=== PATIENT | male | born 1930 | race African-American/Black ===

== ENCOUNTER 2017-04-17 13:48 | Inpatient (IN) | payer MEDICARE, MEDICAID ==
[2017-04-17 14:07] LABS: Bilirubin Small (Negative); Blood, Urine Negative (Negative); Glucose, Urine (Dipstick) Negative (Negative); Ketone, Urine Negative (Negative); Nitrite Negative (Negative); Protein, Urine (Dipstick) 100 mg/dL (Neg-Trace)
[2017-04-17 14:18] LABS: Bacteria/HPF 3+ HPF (None Seen); Hyaline Casts/LPF 4-6 HYALINE CAST LPF (0-3 Hyaline)
[2017-04-17 14:19] LABS: #Basophils 0.1 thou/uL (0.0-0.2); #Eosinphils 0.1 thou/uL (0.0-0.7); #Lymphocytes 2.2 thou/uL (1.20-3.40); #Monocytes 0.6 thou/uL (0.11-0.59); %Basophils 1.1 % (0.0-1.0); %Eosinophils 2.5 % (0.0-10.0); %Lymphocytes 36.7 % (21.0-51.0); %Monocytes 10.1 % (0.0-10.0); Hematocrit 30.5 % (42.0-52.0); Mean Platelet Volume 7.4 fL (7.4-10.4); Red Blood Cell (RBC) Count 3.42 mill/uL (4.70-6.10); White Blood Cell (WBC) Count 5.9 thou/uL (4.8-10.8)
[2017-04-17 14:20] LABS: Amphetamine Not Detected (NotDetected); Methadone Not Detected (NotDetected); Methamphetamine Not Detected (NotDetected)
--- NOTE | 2017-04-17 14:24 | CT ---
CT BRAIN NONCONTRAST: HISTORY: An 86-year-old male with altered mental status, fluctuating level of consciousness, and bilateral upp er extremity paresis. This stroke-alert protocol report was called to Dr. Simpson at 2:15 p.m. on 04/17/17. FINDINGS: There is no midline shift or any other mass effect. There is no evidence of acute intracranial hemor rhage, large cortical infarct, obstructive hydrocephalus, or extraaxial fluid collection. The calvar ium is intact. There is diffuse parenchymal volume loss. There are low attenuation areas in the whi te matter. These are nonspecific, but in a patient of this age, they are probably chronic ischemic w nilesh matter changes due to microvascular atherosclerosis. IMPRESSION: 1) No acute intracranial findings. 2) Involutional changes and chronic ischemic white matter changes. CODE CR jn [] POS: CYNDI
[2017-04-17 14:38] LABS: ALT (SGPT) Less than 7 U/L (8-55); AST (SGOT) 12 U/L (5-34); Alkaline Phosphatase 58 U/L (40-150); Anion Gap 14 mmol/L (10-20); BUN (Urea Nitrogen) 18 mg/dL (8.4-25.7); Bilirubin, Total 0.3 mg/dL (0.2-1.2); CK (CPK) 112 U/L (30-200); Calc. Creatinine Clearance 0 mL/min (70-130); Calcium 8.7 mg/dL (7.8-10.44); Carbon Dioxide 20 mmol/L (23-31); Chloride 110 mmol/L (98-107); Estimated GFR-MDRD 79; Globulin 2.9 g/dL (2.4-3.5)
[2017-04-17 14:48] LABS: RBC/HPF 0-3 HPF (0-3)
[2017-04-17 14:49] LABS: Renal Epithelial None Seen HPF (0-3); Transitional Epithelial NONE SEEN HPF (0-3)
--- NOTE | 2017-04-17 15:06 | RAD ---
UPRIGHT PORTABLE CHEST 1 VIEW: HISTORY: An 86-year-old male with a history of altered mental status, apneic spells. COMPARISON: 02/09/17. FINDINGS: Postop midline sternotomy. Atherosclerotic ectatic changes of the aorta. A left ICD. Heart size is within normal limits. No confluent pneumonia, overt edema, or pleural effusion. IMPRESSION: No acute intrathoracic disease. Incidental skin folds overlying the right chest. POS: THERESA
[2017-04-17 15:27] LABS: Troponin I 0.077 ng/mL (< 0.028)
[2017-04-17] MEDS ORDERED: cefTRIAXone\\ROCEPHIN 2 GM in Sodium Chloride 0.9% 100 ML IVPB ONE (15:30)
[2017-04-17] MEDS ORDERED: Ondansetron ODT 4 MG TAB PO PRN (16:08)
[2017-04-17] MEDS ORDERED: Ondansetron HCl/PF 4 MG/2 ML Vial IVP PRN (16:08)
[2017-04-17] MEDS ORDERED: Acetaminophen 650 MG Suppository PR PRN (16:08)
[2017-04-17] MEDS ORDERED: Bisacodyl 5 MG TAB PO PRN (16:08)
[2017-04-17] MEDS ORDERED: Acetaminophen 325 MG TAB PO PRN (16:08)
[2017-04-17 18:10] LABS: Vancomycin, Trough 12.1 ug/mL
[2017-04-17 18:32] VITALS: BMI 23.6
[2017-04-17] MEDS: Sodium Chloride 0.9% 1,000 ML IV SCH (19:12)
[2017-04-17] MEDS ORDERED: Vancomycin HCl 1 GM in Sodium Chloride 0.9% 250 ML 250 ML IVPB SCH (21:00)
--- NOTE | 2017-04-17 22:44 | HP ---
PRIMARY CARE PHYSICIAN: Dr. Marilee Llamas. CHIEF COMPLAINT: Altered mental status. HISTORY OF PRESENT ILLNESS: This is an 86-year-old male, brought in by EMS due to altered mental status at home. There are no family members at bedside and no further information available. In the ER patient was initially unresponsive and hypoxic. He was put on oxygen and given IV fluids, at which point he perked up and is now arousable and able to talk. Still with breathing pauses while sleeping. All history taken from chart as patient unable to provide history due to mental status changes. PAST MEDICAL HISTORY: 1. CVA with residual right sided weakness 2. Hypertension 3. Prostate Cancer 4. Paroxysmal Atrial Fibrillation 5. Diastolic congestive heart failure 6. Alzheimer's dementia 7. COPD 8. Sick sinus syndrome 9. Obstructive Uropathy PAST SURGICAL HISTORY: 1. Prostatectomy 2. Pacemaker 3. Suprapubic catheter SOCIAL HISTORY: Patient lives at home with his family. He smoked for 25 years and quit more than 10 years ago. No alcohol or illicit drug use. FAMILY HISTORY: Hypertension, diabetes, and stroke run in several family members. ALLERGIES: Hydrocodone MEDICATIONS: Not available REVIEW OF SYSTEMS: Unable to obtain due to patient's altered mental status. PHYSICAL EXAMINATION: VITAL SIGNS: Reviewed from chart, stable without hypotension or tachycardia after fluids in ER. Afebrile. GENERAL: This is a thin male who is sleepy, but arousable. He does tend to have some prolonged pauses in his breathing while sleeping; however, he is easily arousable, and once he is awake and talking, he breathes normally. HEENT EXAM: Pupils are equal, round, and reactive to light. Oropharynx is clear without lesions, erythema, or exudate. Currently with moist mucous membranes after saline bolus in the emergency room. HEART: Irregularly irregular rhythm, no murmurs. He does have a pacemaker palpable. LUNGS: Clear to auscultation bilaterally, no wheezes, crackles, or rhonchi. ABDOMEN: Soft, nontender to palpation, normoactive bowel sounds. No hepatosplenomegaly or other masses. He does have a suprapubic catheter tube in place. EXTREMITIES: No clubbing, cyanosis, or edema. SKIN: Without rashes or other lesions. NEUROLOGIC: Patient has mild weakness in the right side compared to his left. Deep tendon reflexes are 2+ in all extremities. No facial droop, no dysarthria. PSYCHIATRIC: Patient is alert. He is oriented to person and to the place he knows is [facility]. He is unable to give me the date or the year. He does remember some details about what brought him to the hospital when he has felt ill for the past couple of days. This is markedly better than when he came in. He was minimally arousable originally until given IV fluids in the emergency room. LABORATORY DATA AND IMAGING: CBC shows a white blood cell count of 5.9, hemoglobin of 9.4, hematocrit 30.5, MCV normal, and platelet count normal. Complete metabolic panel was only notable for a chloride of 110, bicarbonate of 20, albumin of 3.1. The remainder is within normal limits. Cardiac marker set indeterminate troponin of 0.077 on the first check. Brain natriuretic peptide is elevated at 148. Lactic acid is normal. Urinalysis with 100 of protein, large leukocyte esterase, only 4 to 6 white blood cells, and 3+ bacteria. This is from his suprapubic cath tube. Urine toxicology screen is negative. Ammonia is pending. Urine and blood cultures are pending as well. X-ray, I did review the chest x-ray done in the emergency room along with the radiologist 's report, it does showed a pacemaker in place, but no acute cardiopulmonary process. CT of the brain showed some old ischemic disease, but no evidence of acute stroke or bleed. ASSESSMENT AND PLAN: 1. Altered mental status, likely related to dehydration and possible infection. Patient's is resolving with IV fluids. He does having some fairly long respiratory pauses, though not becoming hypoxic in the emergency room so he is being admitted to the [facility] for observation overnight. If he does well there, then he can probably go to the floor in the morning. We will continue with IV fluids overnight as well. 2. Urinary tract infection. I have started the patient on Rocephin and vancomycin. Urine and blood cultures are pending. He does not have any leukocytosis. He had minimal criteria for sepsis on arrival with a pulse in the high 90s and altered mental status however, he looked markedly better now. 3. History of atrial fibrillation, hypertension. We will find out patient's home medications and then resume. 4. Gastrointestinal prophylaxis. Put the patient on Pepcid while he is in the hospital. 5. Deep venous thrombosis prophylaxis. Put patient on sequential compression devices and TEDs along with Lovenox while he in the hospital. CODE STATUS: Patient is still not competent to have a code status discussion right now, there is no family present. We will make him a FULL CODE for now until he can find more information from his family. NATHALIE
[2017-04-17] MEDS: Docusate 100 MG CAP PO SCH (22:53)
[2017-04-17] MEDS: Famotidine 20 MG TAB PO SCH (22:53)
[2017-04-18] MEDS: Sodium Chloride 0.9% 1,000 ML IV SCH ×2 (05:15→10:13)
[2017-04-18 05:18] LABS: Anion Gap 9 mmol/L (10-20); BUN (Urea Nitrogen) 16 mg/dL (8.4-25.7); Calc. Creatinine Clearance 64 mL/min (70-130); Calcium 8.3 mg/dL (7.8-10.44); Carbon Dioxide 22 mmol/L (23-31); Chloride 113 mmol/L (98-107); Estimated GFR-MDRD Greater than 90
[2017-04-18 05:40] LABS: #Eosinphils 0.1 thou/uL (0.0-0.7); #Monocytes 0.4 thou/uL (0.11-0.59); #Neutrophils 3.3 thou/uL (1.40-6.50); %Basophils 0.5 % (0.0-1.0); %Eosinophils 2.6 % (0.0-10.0); %Lymphocytes 20.1 % (21.0-51.0); %Monocytes 8.4 % (0.0-10.0); Hematocrit 23.6 % (42.0-52.0); Mean Platelet Volume 7.3 fL (7.4-10.4); Red Blood Cell (RBC) Count 2.61 mill/uL (4.70-6.10); White Blood Cell (WBC) Count 4.9 thou/uL (4.8-10.8)
[2017-04-18 07:55] LABS: Sodium 141 mmol/L (135-148)
[2017-04-18 07:56] LABS: Mode NC 2 LPM; Modified Allen's Test POSITIVE; Vent NO
--- NOTE | 2017-04-18 10:20 | PRG ---
DATE OF SERVICE: 04/18/2017 SUBJECTIVE: The patient is seen and examined at bedside. He just woke up. There was an uneventful night. He is able to answer my simple questions, but his mental status is still off. We do not kn ow whether that is his baseline since he has a history of dementia, or this is something new on the top of his baseline. OBJECTIVE: VITAL SIGNS: Blood pressure is 155/66, pulse is 60, respiratory rate is 10. Pulse oximetry is 100% on O2, he is on 2 liters by nasal cannula. HEENT: Head is atraumatic, normocephalic. Pupils respond to light properly. Sclerae is not icteri c. Conjunctivae pinkish. Oral mucosa is somewhat dry. NECK: Supple, no lymphadenopathy. LUNGS: Clear. HEART: S1, S2 normal, no S3, no S4. ABDOMEN: Soft, nontender. Bowel sounds present, no organomegaly. EXTREMITIES: No clubbing, cyanosis or edema. NEUROLOGIC: He is able to move all 4 extremities. He is awake. He is oriented x1. He knows where he lives, but he does not know the place, time and date. LABORATORY DATA: Showed a white count of 4.9, hemoglobin of 7.3, hematocrit 23.6, platelet count 28 8. Chemistry showed sodium of 140, potassium 3.8, chloride 113, CO2 of 22, anion gap is 9, BUN 16 a nd creatinine 0.79, glucose 77. Ammonia was 40. Two sets of troponins 0.077 and 0.090. Vancomycin trough is 12.1. His blood cultures are still pending. IMPRESSION: 1. Altered mental status. As I mentioned above, this is probably his baseline since he has some fo rm of dementia per previous admission in 06/2016 or this could be just metabolically triggered. 2. Apneic episodes. We are going to have manufacturing sales representative to evaluate his problem. We know that he h as some form of sleep apnea and probably he will have to be on some device at night during sleep. 3. Anemia with hemoglobin dropped by 2 grams. Rectal examination did not reveal any blood in his r ectum. This could be related to his IV fluids administration. We will watch him closely for any fu rther hemoglobin drop. 4. Chronic obstructive pulmonary disease, stable. 5. Hypertension. He will have his home medications after we confirm the medications with his son muriel rodriges is coming in the hospital this morning. 6. Questionable urinary tract infection. We have him on vancomycin and Rocephin. He did not have any significant fever. Most likely this urinalysis is colonization since he has suprapubic catheter in place. 7. History of chronic atrial fibrillation, now he is in normal sinus rhythm. 8. History of dementia. 9. History of cerebrovascular accident. 10. Suprapubic catheter. PLAN: The plan is to do ABGs on him, check pCO2, have manufacturing sales representative to stop by and see him. Contin ue vancomycin and Rocephin and follow up on urine and blood cultures and will move him out from the unit today to medical floor.
[2017-04-18] MEDS: Docusate 100 MG CAP PO SCH ×2 (10:47→19:57)
[2017-04-18] MEDS: Famotidine 20 MG TAB PO SCH ×2 (10:48→19:57)
[2017-04-18] MEDS: Enoxaparin Sodium 40 MG/0.4 ML SYRINGE SC SCH (10:48)
[2017-04-18] MEDS: Sodium Chloride 0.45% 1,000 ML IV SCH (13:22)
--- NOTE | 2017-04-18 13:57 | CON ---
DATE OF SERVICE: 04/18/2017 SERVICE: Pulmonary Medicine. REASON FOR CONSULTATION: ICU patient. HISTORY OF PRESENT ILLNESS: Patient is an 86-year-old -[place] male with past medical history significant for fairly advanced dementia. He is getting to point where he cannot take care of himself. He lives at home with his son. That being said, the son is having a difficult time taking care of the patient as well. When he came into the emergency department because of altered mental status, he had bugs all over him and his hygiene was deplorable outside of that. He had episodes of hypoxemia that were characterized by making no efforts and breathing. This was a central sleep apnea when he was sleeping. That being said, with gentle arousal, he would wake up and be perfectly alert and otherwise appropriate. He currently denies any shortness of breath, fevers, chills, or diarrhea. That being said, nothing that we really ask him, has any merit because of his advanced dementia. PAST MEDICAL HISTORY: 1. History of cerebrovascular accident with residual right-sided weakness. 2. Hypertension. 3. Dyslipidemia. 4. Chronic diastolic heart failure. 5. Atrial fibrillation, paroxysmal. 6. Prostate cancer. 7. Dementia. 8. Chronic obstructive pulmonary disease, possible. 9. Sick sinus syndrome. 10. Obstructive uropathy with chronically indwelling suprapubic catheter. PAST SURGICAL HISTORY: 1. Prostatectomy. 2. Pacemaker placement. 3. Suprapubic catheter. SOCIAL HISTORY: He lives at home with his son. He has a [id number] history of smoking, but quit over 10 years ago. He does not use any current alcohol or any illicit drugs. FAMILY HISTORY: Noncontributory. ALLERGIES: HYDROCODONE. MEDICATIONS: List of his inpatient medications were reviewed. There were no specific updates to be made at this time. REVIEW OF SYSTEMS: The patient is awake and alert. He denies a 10-point review of systems including general, head, eyes, ears, nose, throat, cardiovascular, respiratory, GI, , musculoskeletal, neurologic, and skin except as mentioned in the HPI. PHYSICAL EXAMINATION: VITAL SIGNS: Afebrile, pulse 60, blood pressure 150/78, respirations 16, saturation 100% on room air. GENERAL: Patient is awake, alert, in no apparent distress. HEENT: Normocephalic, atraumatic. Sclerae are white, conjunctivae pink. Oral and nasal mucosa is moist without lesions. LUNGS: Decent air entry. There is a slightly prolonged expiratory phase. I do not appreciate wheezing. Rhonchi are present, but clear with cough. No crackles. HEART: Normal rate, regular. ABDOMEN: Soft, nontender, nondistended. Bowel sounds are positive. MUSCULOSKELETAL: No cyanosis or clubbing. There is no pitting in the bilateral lower extremities. LABORATORY DATA: Sodium 140. Chloride 113. Basic metabolic profile is otherwise unremarkable. Iron level is low. Ferritin is low. Ammonia is normal. BNP 148, troponin 0.09. Liver function studies are unremarkable. Lipase is normal. Urinalysis is significant for large leukocyte esterase, but there is only 4-6 white blood cells present. There is 3+ bacteria. Nitrites are negative. Urine drug screen is unremarkable. Vancomycin trough is 12.1. Blood cultures x2 unremarkable. Urine culture is negative to date. IMAGIN. CT of the brain demonstrates no acute intracranial abnormality. 2. His chest x-ray demonstrates, there is involution changes. There is diffuse parenchymal volume loss. 3. Chest x-ray demonstrates no acute cardiothoracic abnormality. ASSESSMENT: 1. Dementia, advanced. 2. Failure to thrive. 3. Severe protein-calorie malnutrition. 4. Central sleep apnea. 5. Atrial fibrillation, paroxysmal. 6. Severe sepsis, unlikely. PLAN: I will discontinue the vancomycin and the vancomycin troughs. I am okay with the empiric antibiotics directed at issues. That being said, this is likely contamination from a chronically indwelling Salomon catheter. The patient is not responding physiologically as though he has an acute infectious process. Specifically, his white blood cell count is normal. His heart rate is normal , his respiratory rate is normal, and he has not demonstrated any abnormal temperature is either elevated or low. Because of the state of disrepair, the patient was in on presentation, I believe the emergency room has alerted APS to his situation. We may need to look into finding him placement on discharge from the hospital this time around. He certainly does not require inpatient ICU management. The central sleep apnea does not need to be worked up further, as I do not think it would be able to tolerate noninvasive therapy in the outpatient setting. I will continue to follow for the time being, but we will work on transitioning him out of the ICU. NATHALIE
[2017-04-18] MEDS ORDERED: Vancomycin HCl 1 GM in Premix Bag 1 BAG IVPB SCH (16:00)
[2017-04-18] MEDS: cefTRIAXone\\ROCEPHIN 2 GM in Sodium Chloride 0.9% 100 ML IVPB SCH (16:45)
[2017-04-18] MEDS: Vancomycin HCl 1 GM in Premix Bag 1 BAG IVPB SCH (18:07)
[2017-04-18] MEDS: Metoprolol Tartrate 25 MG TAB PO SCH (20:00)
[2017-04-19] MEDS: Vancomycin HCl 1 GM in Premix Bag 1 BAG IVPB SCH ×2 (05:20→19:47)
[2017-04-19] MEDS: Sodium Chloride 0.45% 1,000 ML IV SCH (05:22)
[2017-04-19 05:41] LABS: Hematocrit 25.8 % (42.0-52.0)
[2017-04-19] MEDS: Metoprolol Tartrate 25 MG TAB PO SCH ×2 (10:24→21:07)
[2017-04-19] MEDS: Famotidine 20 MG TAB PO SCH ×2 (10:24→21:07)
[2017-04-19] MEDS: Docusate 100 MG CAP PO SCH ×2 (10:24→21:07)
[2017-04-19] MEDS: Enoxaparin Sodium 40 MG/0.4 ML SYRINGE SC SCH (10:25)
--- NOTE | 2017-04-19 11:41 | PDOC.PN ---
- Subjective Encounter Start Date: 04/19/17 Encounter Start Time: 10:40 -: old records requested/rev Patient seen and examined. No new complaints. No overnight events - Objective Resuscitation Status: Resuscitation Status FULL:Full Resuscitation MAR Reviewed: Yes Vital Signs & Weight: Vital Signs (12 hours) Temp Pulse Resp BP Pulse Ox 04/19/17 08:11 98.1 F 66 16 181/73 H 100 04/19/17 04:00 97.4 F L 84 18 174/83 H 97 04/19/17 00:00 98.2 F 84 18 157/79 H 97 Weight Admit Weight 146 lb 9.718 oz Weight 146 lb 9.718 oz Most Recent Monitor Data Heart Rate from ECG 60 NIBP 150/78 NIBP BP-Mean 115 Respiration from ECG 15 SpO2 100 I&O: 04/18/17 04/19/17 04/20/17 06:59 06:59 06:59 Intake Total 1217 240 Output Total 810 1591 Balance 407 -1351 Result Diagrams: 04/19/17 05:02 04/18/17 04:18 Phys Exam - Physical Examination Constitutional: NAD HEENT: PERRLA, moist MMs, sclera anicteric Neck: no JVD, supple Respiratory: no wheezing, no rales, no rhonchi Cardiovascular: RRR, no significant murmur, no rub Gastrointestinal: soft, non-tender, no distention, positive bowel sounds suprapubic catheter Musculoskeletal: no edema, pulses present Neurological: non-focal, normal sensation Psychiatric: normal affect, A&O x 3 Skin: no rash, normal turgor Dx/Plan (1) Encephalopathy acute Code(s): G93.40 - ENCEPHALOPATHY, UNSPECIFIED Status: Acute (2) COPD (chronic obstructive pulmonary disease) Status: Chronic (3) Chronic diastolic (congestive) heart failure Code(s): I50.32 - CHRONIC DIASTOLIC (CONGESTIVE) HEART FAILURE Status: Chronic (4) Dementia Code(s): F03.90 - UNSPECIFIED DEMENTIA WITHOUT BEHAVIORAL DISTURBANCE Status: Chronic (5) Elevated troponin Code(s): R74.8 - ABNORMAL LEVELS OF OTHER SERUM ENZYMES Status: Chronic (6) H/O prostate cancer Code(s): Z85.46 - PERSONAL HISTORY OF MALIGNANT NEOPLASM OF PROSTATE Status: Chronic (7) H/O: CVA (cerebrovascular accident) Code(s): Z86.73 - PRSNL HX OF TIA (TIA), AND CEREB INFRC W/O RESID DEFICITS Status: Chronic (8) HTN (hypertension) Code(s): I10 - ESSENTIAL (PRIMARY) HYPERTENSION Status: Chronic Qualifiers: Comment: (9) History of suprapubic catheter Code(s): Z98.890 - OTHER SPECIFIED POSTPROCEDURAL STATES Status: Chronic (10) Normochromic anemia Code(s): D64.9 - ANEMIA, UNSPECIFIED Status: Chronic (11) Paroxysmal a-fib Code(s): I48.0 - PAROXYSMAL ATRIAL FIBRILLATION Status: Chronic (12) Protein-calorie malnutrition, moderate Code(s): E44.0 - MODERATE PROTEIN-CALORIE MALNUTRITION Status: Chronic - Plan cont current plan of care, continue antibiotics * continue iv antibiotics * medication reviewed as below * symptomatic treatment * will need placement this time * will monitor. Review of Systems - Review of Systems Other: not reliable due to level of alertness now - Medications/Allergies Allergies/Adverse Reactions: Allergies Allergy/AdvReac Type Severity Reaction Status Date / Time acetaminophen Allergy Verified 04/17/17 17:47 [From Tylenol-Codeine #3] codeine Allergy Verified 04/17/17 17:47 [From Tylenol-Codeine #3] hydrocodone Allergy Verified 06/17/16 20:50 Medications: Current Medications Acetaminophen (Tylenol) 650 mg PO Q4H PRN PRN Reason: Headache/Fever or Pain Acetaminophen (Tylenol) 650 mg AK Q4H PRN PRN Reason: Headache/Fever or Pain Bisacodyl (Dulcolax) 10 mg PO DAILYPRN PRN PRN Reason: Constipation Docusate Sodium (Colace) 100 mg PO BID [facility] Last Admin: 04/19/17 10:24 Dose: 100 mg Enoxaparin Sodium (Lovenox) 40 mg SC 0900 [facility] Last Admin: 04/19/17 10:25 Dose: 40 mg Famotidine (Pepcid) 20 mg PO BID [facility] Last Admin: 04/19/17 10:24 Dose: 20 mg Ferrous Sulfate (Feosol) 325 mg PO BID[facility] Ceftriaxone Sodium 2 gm/ (Sodium Chloride) 100 mls @ 200 mls/hr IVPB 1600 [facility] Last Admin: 04/18/17 16:45 Dose: 100 mls Vancomycin HCl 1 gm/ Device 200 mls @ 200 mls/hr IVPB 0600,1800 [facility] Last Admin: 04/19/17 05:20 Dose: 200 mls Metoprolol Tartrate (Lopressor) 12.5 mg PO BID [facility] Last Admin: 04/19/17 10:24 Dose: 12.5 mg Ondansetron HCl (Zofran Odt) 4 mg PO Q6H PRN PRN Reason: Nausea/Vomiting Ondansetron HCl (Zofran) 4 mg IVP Q6H PRN PRN Reason: Nausea/Vomiting Sodium Chloride (Flush - Normal Saline) 10 ml IVF Q12HR [facility] Last Admin: 04/19/17 10:26 Dose: Not Given Sodium Chloride (Flush - Normal Saline) 10 ml IVF PRN PRN PRN Reason: Saline Flush
--- NOTE | 2017-04-19 11:42 | PRG ---
DATE OF SERVICE: 04/29/2017 SERVICE: Pulmonary Medicine. INTERVAL HISTORY: The patient is doing fine from a respiratory standpoint. He denies any shortness of breath or chest discomfort. He has essentially returned to his usual state of health. Otherwise, he has no specific complaints. He is pleasantly confused today. There were no events overnight. PHYSICAL EXAMINATION: VITAL SIGNS: Afebrile, pulse 66, blood pressure 181/73, respirations 16, saturation 100% on room air. GENERAL: Patient is awake, alert, in no apparent distress. LUNGS: Decent air entry with no prolonged expiratory phase. Dependent crackles are minimal. HEART: Normal rate, regular. ABDOMEN: Soft, nontender, nondistended. Bowel sounds positive. MUSCULOSKELETAL: No cyanosis or clubbing. No pitting in the bilateral lower extremities. NEUROLOGIC: Grossly nonfocal. LABORATORY DATA: Hemoglobin 8.0. Urine cultures growing two separate gram negative chapin species. Blood cultures x2 are unremarkable. ASSESSMENT: 1. Dementia, advanced. 2. Failure to thrive. 3. Severe protein-calorie malnutrition. 4. Central sleep apnea. 5. Atrial fibrillation, paroxysmal. 6. Urinary tract infection, possible. 7. Severe sepsis, unlikely. PLAN: The patient is doing fine from a cardiovascular and respiratory standpoint. At this point, he has no further requirement for inpatient Pulmonary opinion. The central sleep apnea does not need to be investigated in the outpatient setting as the patient does not have the ability to put the mask on and off himself multiple times daily. Please call with additional questions or concerns moving forward. NATHALIE
[2017-04-19] MEDS ORDERED: Mag-Al 1200 mg/1200 mg/30 ML UDCUP PO PRN (15:11)
[2017-04-19] MEDS ORDERED: Artificial Tears 18 DROP/0.9 ML EA EYE PRN (15:11)
[2017-04-19] MEDS ORDERED: Loperamide HCl 2 MG CAP PO PRN (15:11)
[2017-04-19] MEDS ORDERED: Sodium Chloride 0.65% Nasal 44 ML BOT EA NARE PRN (15:11)
[2017-04-19] MEDS ORDERED: Chloraseptic Spray 180 ml Bottle PO PRN (15:11)
[2017-04-19] MEDS ORDERED: Loratadine 10 MG TAB PO PRN (15:11)
[2017-04-19] MEDS ORDERED: Milk Of Magnesia 30 ML UDCUP PO PRN (15:11)
[2017-04-19] MEDS ORDERED: Eucerin (Mineral Oil/Petrolatum,White) 30 gm Jar TOP PRN (15:11)
[2017-04-19] MEDS ORDERED: Diabetic Tussin 200 MG/10 ML UDCUP PO PRN (15:11)
[2017-04-19] MEDS ORDERED: hydrALAZINE 20 MG/ML VIAL SLOW IVP PRN (15:11)
[2017-04-19] MEDS: Ferrous Sulfate 325 MG TAB PO SCH (18:09)
[2017-04-19] MEDS: cefTRIAXone\\ROCEPHIN 2 GM in Sodium Chloride 0.9% 100 ML IVPB SCH (19:47)
[2017-04-20 05:30] LABS: #Eosinphils 0.2 thou/uL (0.0-0.7); #Lymphocytes 1.1 thou/uL (1.20-3.40); #Monocytes 0.4 thou/uL (0.11-0.59); %Basophils 0.2 % (0.0-1.0); %Eosinophils 3.9 % (0.0-10.0); %Lymphocytes 24.3 % (21.0-51.0); %Monocytes 8.9 % (0.0-10.0); Hematocrit 26.6 % (42.0-52.0); Mean Platelet Volume 7.3 fL (7.4-10.4); Red Blood Cell (RBC) Count 2.95 mill/uL (4.70-6.10); White Blood Cell (WBC) Count 4.7 thou/uL (4.8-10.8)
[2017-04-20 05:49] LABS: Anion Gap 14 mmol/L (10-20); BUN (Urea Nitrogen) 12 mg/dL (8.4-25.7); Calc. Creatinine Clearance 63 mL/min (70-130); Calcium 8.5 mg/dL (7.8-10.44); Carbon Dioxide 17 mmol/L (23-31); Chloride 111 mmol/L (98-107); Estimated GFR-MDRD Greater than 90
[2017-04-20] MEDS: Vancomycin HCl 1 GM in Premix Bag 1 BAG IVPB SCH (06:15)
[2017-04-20] MEDS ORDERED: cloNIDine 0.1 MG TAB PO PRN (06:35)
[2017-04-20 08:20] VITALS: TEMP 98
[2017-04-20] MEDS ORDERED: Metoprolol Tartrate 25 MG TAB PO SCH (09:00)
[2017-04-20] MEDS ORDERED: Tamsulosin HCl 0.4 MG CAP PO SCH (09:00)
[2017-04-20] MEDS ORDERED: Lisinopril 5 MG TAB PO SCH (09:00)
[2017-04-20] MEDS ORDERED: Sulfameth/Trimethoprim DS 800-160mg TAB PO SCH (09:00)
[2017-04-20] MEDS: Famotidine 20 MG TAB PO SCH (09:08)
[2017-04-20] MEDS: Ferrous Sulfate 325 MG TAB PO SCH (09:09)
[2017-04-20] MEDS: Enoxaparin Sodium 40 MG/0.4 ML SYRINGE SC SCH (09:10)
[2017-04-20] MEDS: Docusate 100 MG CAP PO SCH (09:10)
[2017-04-20 09:20] VITALS: BP 172/72
--- NOTE | 2017-04-20 12:00 | PDOC.PN ---
- Subjective Encounter Start Date: 04/20/17 Encounter Start Time: 10:15 Patient seen and examined. No new complaints. No overnight events - Objective Resuscitation Status: Resuscitation Status FULL:Full Resuscitation MAR Reviewed: Yes Vital Signs & Weight: Vital Signs (12 hours) Temp Pulse Resp BP BP Pulse Ox 04/20/17 09:09 62 172/72 H 04/20/17 08:18 98.0 F 62 16 172/93 H 100 04/20/17 08:09 62 16 179/79 H 04/20/17 08:00 98.0 F 62 16 100 04/20/17 07:14 190/100 H 04/20/17 05:06 99 04/20/17 04:00 98.6 F 62 18 100 04/20/17 00:00 98.1 F 62 18 161/81 H 100 Weight Admit Weight 146 lb 9.718 oz Weight 146 lb 9.718 oz Most Recent Monitor Data Heart Rate from ECG 60 NIBP 150/78 NIBP BP-Mean 115 Respiration from ECG 15 SpO2 100 I&O: 04/19/17 04/20/17 04/21/17 06:59 06:59 06:59 Intake Total 240 Output Total 1591 650 Balance -1351 -650 Result Diagrams: 04/20/17 05:09 04/20/17 05:09 Phys Exam - Physical Examination Constitutional: NAD HEENT: PERRLA, moist MMs, sclera anicteric Neck: no JVD, supple Respiratory: no wheezing, no rales, no rhonchi Cardiovascular: RRR, no significant murmur, no rub Gastrointestinal: soft, non-tender, no distention, positive bowel sounds suprapubic catheter Musculoskeletal: no edema, pulses present Neurological: non-focal, normal sensation Lymphatic: no nodes Psychiatric: normal affect Skin: no rash, normal turgor Dx/Plan (1) Encephalopathy acute Code(s): G93.40 - ENCEPHALOPATHY, UNSPECIFIED Status: Resolved (2) COPD (chronic obstructive pulmonary disease) Status: Chronic (3) Chronic diastolic (congestive) heart failure Code(s): I50.32 - CHRONIC DIASTOLIC (CONGESTIVE) HEART FAILURE Status: Chronic (4) Dementia Code(s): F03.90 - UNSPECIFIED DEMENTIA WITHOUT BEHAVIORAL DISTURBANCE Status: Chronic (5) Elevated troponin Code(s): R74.8 - ABNORMAL LEVELS OF OTHER SERUM ENZYMES Status: Chronic (6) H/O prostate cancer Code(s): Z85.46 - PERSONAL HISTORY OF MALIGNANT NEOPLASM OF PROSTATE Status: Chronic (7) H/O: CVA (cerebrovascular accident) Code(s): Z86.73 - PRSNL HX OF TIA (TIA), AND CEREB INFRC W/O RESID DEFICITS Status: Chronic (8) HTN (hypertension) Code(s): I10 - ESSENTIAL (PRIMARY) HYPERTENSION Status: Chronic Qualifiers: Comment: (9) History of suprapubic catheter Code(s): Z98.890 - OTHER SPECIFIED POSTPROCEDURAL STATES Status: Chronic (10) Normochromic anemia Code(s): D64.9 - ANEMIA, UNSPECIFIED Status: Chronic (11) Paroxysmal a-fib Code(s): I48.0 - PAROXYSMAL ATRIAL FIBRILLATION Status: Chronic (12) Protein-calorie malnutrition, moderate Code(s): E44.0 - MODERATE PROTEIN-CALORIE MALNUTRITION Status: Chronic - Plan cont current plan of care, continue antibiotics, PT/OT, social insurance administrator * dc rocephin and vancomycin * add ceftin based on culture result * medication reviewed as below * symptomatic treatment * once snu arranged, will discharge. Review of Systems - Review of Systems ENT: negative: Ear Pain, Ear Discharge, Nose Pain, Nose Discharge, Nose Congestion, Mouth Pain, Mouth Swelling, Throat Pain, Throat Swelling, Other Respiratory: negative: Cough, Dry, Shortness of Breath, Hemoptysis, SOB with Excertion, Pleuritic Pain, Sputum, Wheezing Cardiovascular: negative: Chest Pain, Palpitations, Orthopnea, Paroxysmal Noc. Dyspnea, Edema, Light Headedness, Other Gastrointestinal: negative: Nausea, Vomiting, Abdominal Pain, Diarrhea, Constipation, Melena, Hematochezia, Other Genitourinary: negative: Dysuria, Frequency, Incontinence, Hematuria, Retention , Other Musculoskeletal: negative: Neck Pain, Shoulder Pain, Arm Pain, Back Pain, Hand Pain, Leg Pain, Foot Pain, Other - Medications/Allergies Allergies/Adverse Reactions: Allergies Allergy/AdvReac Type Severity Reaction Status Date / Time acetaminophen Allergy Verified 04/17/17 17:47 [From Tylenol-Codeine #3] codeine Allergy Verified 04/17/17 17:47 [From Tylenol-Codeine #3] hydrocodone Allergy Verified 06/17/16 20:50 Medications: Current Medications Acetaminophen (Tylenol) 650 mg PO Q4H PRN PRN Reason: Headache/Fever or Pain Al Hydroxide/Mg Hydroxide (Maalox) 15 ml PO Q4H PRN PRN Reason: Heartburn or Indigestion Artificial Tears (Tears Naturale) 0 drop EA EYE PRN PRN PRN Reason: Dry Eyes Bisacodyl (Dulcolax) 10 mg PO DAILYPRN PRN PRN Reason: Constipation Cefuroxime Axetil (Ceftin) 250 mg PO Q12HR [facility] Clonidine (Catapres) 0.1 mg PO Q8H PRN PRN Reason: FOR SBP > 160 Last Admin: 04/20/17 07:14 Dose: 0.1 mg Docusate Sodium (Colace) 100 mg PO BID [facility] Last Admin: 04/20/17 09:10 Dose: 100 mg Enoxaparin Sodium (Lovenox) 40 mg SC 0900 [facility] Last Admin: 04/20/17 09:10 Dose: 40 mg Famotidine (Pepcid) 20 mg PO BID [facility] Last Admin: 04/20/17 09:08 Dose: 20 mg Ferrous Sulfate (Feosol) 325 mg PO BID-[facility] Last Admin: 04/20/17 09:09 Dose: 325 mg Guaifenesin (Robitussin Sf) 200 mg PO Q4H PRN PRN Reason: Cough Hydralazine HCl (Apresoline) 10 mg SLOW IVP Q4H PRN PRN Reason: Systolic BP > 180 Lisinopril (Zestril) 5 mg PO DAILY [facility] Last Admin: 04/20/17 09:09 Dose: 5 mg Loperamide HCl (Imodium) 2 mg PO PRN PRN PRN Reason: Diarrhea/Loose Stools Loratadine (Claritin) 10 mg PO DAILYPRN PRN PRN Reason: Sinus Symptoms Magnesium Hydroxide (Milk Of Magnesium) 30 ml PO DAILYPRN PRN PRN Reason: Constipation Metoprolol Tartrate (Lopressor) 25 mg PO BID [facility] Last Admin: 04/20/17 09:08 Dose: 25 mg Mineral Oil/White Petrolatum (Eucerin Cream) 0 gm TOP BIDPRN PRN PRN Reason: Dry Skin Ondansetron HCl (Zofran Odt) 4 mg PO Q6H PRN PRN Reason: Nausea/Vomiting Ondansetron HCl (Zofran) 4 mg IVP Q6H PRN PRN Reason: Nausea/Vomiting Phenol (Chloraseptic [place] 180 Ml Bot) 0 ml PO PRN PRN PRN Reason: Sore Throat Sodium Chloride (Flush - Normal Saline) 10 ml IVF Q12HR [facility] Last Admin: 04/20/17 09:10 Dose: Not Given Sodium Chloride (Flush - Normal Saline) 10 ml IVF PRN PRN PRN Reason: Saline Flush Sodium Chloride (Kerr Nasal [place] 0.65%) 0 ml EA NARE QIDPRN PRN PRN Reason: Nasal Congestion Tamsulosin HCl (Flomax) 0.4 mg PO DAILY [facility] Last Admin: 04/20/17 09:08 Dose: 0.4 mg
--- NOTE | 2017-04-20 16:54 | DIS ---
DATE OF ADMISSION: 04/17/2017 DATE OF DISCHARGE: 04/20/2017 PRIMARY CARE PHYSICIAN: Dr. Llamas. DISCHARGE DISPOSITION: [facility]. PRIMARY DISCHARGE DIAGNOSES: 1. Acute encephalopathy, resolved. 2. Central sleep apnea. 3. Urinary tract infection related with suprapubic catheter. SECONDARY DISCHARGE DIAGNOSES: Chronic diastolic congestive heart failure, chronic obstructive pulm onary disease, dementia, chronically elevated troponin, history of prostate cancer, history of cereb rovascular accident, history of suprapubic catheter, hypertension, normocytic normochromic anemia, p aroxysmal atrial fibrillation and moderate protein-calorie malnutrition. PRIMARY PROCEDURE/OPERATION: None. RADIOLOGICAL INVESTIGATION: Chest x-ray on admission showed no acute cardiopulmonary process. CT b rain on admission showed no acute intracranial process, chronic ischemic white matter changes. SIGNIFICANT LABORATORY DATA: WBC 4.7, hemoglobin 8.1 and platelets 323. O2 of 102.3, CO2 of 40.0 a nd pH 7.36. Sodium 138, potassium 3.7, BUN 12, creatinine 0.80, calcium 8.5. Ferritin 20.35. Trop onin 0.090. Liver enzymes normal. BNP 148.1, lipase 39. Urinalysis suggestive of UTI. Urine drug screen negative. Urine culture grew Providencia. Blood culture negative. DISCHARGE MEDICATIONS: Ceftin 250 mg p.o. b.i.d., vitamin B12 1000 mcg p.o. daily, ferrous sulfate 325 mg p.o. b.i.d., folic acid 1 mg p.o. daily, lisinopril 5 mg p.o. daily, Lopressor 25 mg p.o. b. i.d., Remeron 15 mg p.o. at bedtime, Protonix 40 mg p.o. q.12 hourly and Flomax 0.4 mg p.o. daily. CONTRAINDICATIONS: None. CODE STATUS: FULL CODE. INPATIENT CONSULTANTS: Dr. Grant was consulted while in hospital. ALLERGIES: HYDROCODONE and CODEINE. DISCHARGE PLAN: Post hospital, the patient is discharged to [facility]. HOSPITAL COURSE: An 86-year-old male who was admitted by Dr. Steve Delgado. Please see his H\T\P for f urther details. The patient was admitted on 04/17/2017, for altered mental status. In the emergenc y room, patient was initially unresponsive and hypoxic. He had acute respiratory failure and he req uired admission in ICU. Dr. Grant saw this patient. This patient was found with central sleep ap valery. Patient also had urinary tract infection. He was treated with broad-spectrum antibiotic thera py. His blood culture remained negative, but urine culture was positive for Providencia. He has ch ronic suprapubic catheter. This patient has significant physical deconditioning and that is why wit h help of human services case manager, we arranged to [facility] on discharge. While in hospital, the pa bailee has received antibiotic therapy with Rocephin. On discharge, we changed to Ceftin. Medication was adjusted as above. The patient is also given iron supplement for chronic iron defici ency anemia. This patient has chronically elevated troponin. Overall, this patient remains stable. He is up to his baseline. The patient is seen and examined a t bedside today. The patient is approved for [facility] today. Paper work for discharg e done. Discharge medication reconciliation done. See my progress note from today for further deta ils. Total time spent on discharge more than 30 minutes.
[2017-04-20] MEDS ORDERED: Cefuroxime Axetil 250 MG TAB PO SCH (21:00)
--- NOTE | 2017-06-08 15:06 | EKG ---
Test Reason : AMS Blood Pressure : / mmHG Vent. Rate : 089 BPM Atrial Rate : 078 BPM P-R Int : 000 ms QRS Dur : 162 ms QT Int : 354 ms P-R-T Axes : 000 -26 151 degrees QTc Int : 430 ms Poor data quality, interpretation may be adversely affected Demand pacemaker; interpretation is based on intrinsic rhythm Atrial fibrillation with premature ventricular or aberrantly conducted complexes Left bundle branch block Abnormal ECG Artifact Confirmed by REEMA CABRERA, STU Saini ([id number]), food expeditor ELISA BARKER ([id number]) on 06/08/2017 3:06:11 PM Referred By: REEMA Confirmed By:STU BENAVIDEZ MD
== END 2017-04-20 17:25 | DRG 698 ==
LOC: ERS 13:48 → CCU 15:32 → T4-B 04-18 11:39
PROVIDERS: ADMIT Emergency Medicine; ATTEND Emergency Medicine
DX: T83.511A Infection and inflammatory reaction due to indwelling urethral catheter, initial encounter (principal); G93.40 Encephalopathy, unspecified; E44.0 Moderate protein-calorie malnutrition; I69.351 Hemiplegia and hemiparesis following cerebral infarction affecting right dominant side; G30.9 Alzheimer's disease, unspecified; I11.0 Hypertensive heart disease with heart failure; I50.32 Chronic diastolic (congestive) heart failure; I48.0 Paroxysmal atrial fibrillation; J44.9 Chronic obstructive pulmonary disease, unspecified; F02.80 Dementia in other diseases classified elsewhere, unspecified severity, without behavioral disturbance, psychotic disturbance, mood disturbance, and anxiety; R62.7 Adult failure to thrive; N39.0 Urinary tract infection, site not specified; E86.0 Dehydration; G47.31 Primary central sleep apnea; Z95.0 Presence of cardiac pacemaker; Z87.891 Personal history of nicotine dependence; Z85.46 Personal history of malignant neoplasm of prostate; Y84.6 Urinary catheterization as the cause of abnormal reaction of the patient, or of later complication, without mention of misadventure at the time of the procedure; D50.9 Iron deficiency anemia, unspecified
CPT/HCPCS: 36415; 70450; 71010; 80048; 80053; 80202; 80306; 81003; 81015; 82140; 82553; 82728; 82805; 83540; 83605; 83690; 83880; 84484; 85014; 85018; 85025; 87040; 87077; 87086; 87186; 93005; 96361; 96365; A4216; G8978-GP-CK; G8979-GP-CI; G8987-GO-CJ; G8988-GO-CH; G8996-GN-CH; G8997-GN-CH; J0360; J0696; J1650; J3370; J7050

== ENCOUNTER 2017-07-31 12:21 | Emergency (ER) | payer MEDICARE ==
[2017-07-31 15:20] LABS: Bilirubin Negative (Negative); Blood, Urine Large (Negative); Clarity CLOUDY (Clear); Glucose, Urine (Dipstick) Negative (Negative); Leukocyte Large (Negative); Nitrite Negative (Negative); Protein, Urine (Dipstick) 100 mg/dL (Neg-Trace); Specific Gravity, Urine 1.016 (1.002-1.036)
[2017-07-31 15:22] LABS: Pathc Cast-AUWi Flag 1.89 (0-2.49)
[2017-07-31 15:26] LABS: Yeast-AUWi Flag 39.7 (0-25.0)
[2017-07-31 15:33] LABS: Bacteria/HPF 1+ HPF (None Seen); Renal Epithelial 0-3 HPF (0-3); Squamous Epithelial 0-3 HPF (0-3)
[2017-07-31 15:34] LABS: Hyaline Casts/LPF 0-3 HYALINE CAST LPF (0-3 Hyaline); Yeast-All Forms None Seen HPF (None Seen)
== END 2017-07-31 15:14 | disposition home or self-care (01) ==
LOC: ERS 12:21
DX: T83.018A Breakdown (mechanical) of other urinary catheter, initial encounter (principal); I69.30 Unspecified sequelae of cerebral infarction; I10 Essential (primary) hypertension; I48.91 Unspecified atrial fibrillation; Z87.891 Personal history of nicotine dependence
CPT/HCPCS: 51102; 81003; 81015; 87077; 87086; 87186

== ENCOUNTER 2018-02-15 11:06 | Inpatient (IN) | payer MEDICARE ==
[2018-02-15 11:41] LABS: #Eosinphils 0.1 thou/uL (0.0-0.7); #Lymphocytes 0.8 thou/uL (1.20-3.40); #Monocytes 0.9 thou/uL (0.11-0.59); #Neutrophils 10.4 thou/uL (1.40-6.50); %Eosinophils 0.6 % (0.0-10.0); %Lymphocytes 6.6 % (21.0-51.0); %Monocytes 7.7 % (0.0-10.0); %Neutrophils 85.1 % (42.0-75.0); Mean Corpuscular HGB CONC 32.5 g/dL (32.0-36.0); Mean Corpuscular Hemoglobin 29.8 pg (27.0-31.0); Mean Corpuscular Volume 91.8 fL (78.0-98.0); Mean Platelet Volume 6.9 fL (7.4-10.4); Platelet Count 294 thou/uL (130-400); Red Blood Cell (RBC) Count 3.35 mill/uL (4.70-6.10); White Blood Cell (WBC) Count 12.2 thou/uL (4.8-10.8)
[2018-02-15 12:19] LABS: Bilirubin Negative (Negative); Blood, Urine Large (Negative); Clarity TURBID (Clear); Glucose, Urine (Dipstick) Negative (Negative); Leukocyte Large (Negative); Nitrite Negative (Negative); Protein, Urine (Dipstick) 100 mg/dL (Neg-Trace); Specific Gravity, Urine 1.009 (1.002-1.036)
[2018-02-15 12:24] LABS: Bacteria/HPF 4+ HPF (None Seen)
[2018-02-15 12:32] LABS: ALT (SGPT) Less than 7 U/L (8-55); AST (SGOT) 18 U/L (5-34); Albumin 2.8 g/dL (3.4-4.8); Alkaline Phosphatase 84 U/L (40-150); Anion Gap 16 mmol/L (10-20); BUN (Urea Nitrogen) 27 mg/dL (8.4-25.7); Bilirubin, Total 0.7 mg/dL (0.2-1.2); Calc. Creatinine Clearance 0 mL/min (70-130); Calcium 8.3 mg/dL (7.8-10.44); Carbon Dioxide 22 mmol/L (23-31); Chloride 100 mmol/L (98-107); Estimated GFR-MDRD 56; Globulin 2.9 g/dL (2.4-3.5); Glucose 83 mg/dL (83-110); Potassium 4.1 mmol/L (3.5-5.1); Protein, Total 5.7 g/dL (5.8-8.1); Sodium 134 mmol/L (136-145)
[2018-02-15 12:32] LABS: Hyaline Casts/LPF >50 HYALINE CAST LPF (0-3 Hyaline); Pathc Cast-AUWi Flag 60.85 (0-2.49); Yeast-AUWi Flag 332.6 (0-25.0)
[2018-02-15 12:38] LABS: CKMB 0.6 ng/mL (0-6.6); Troponin I 0.079 ng/mL (< 0.028)
[2018-02-15 12:43] LABS: RBC/HPF GREATER THAN 50-TNTC HPF (0-3)
[2018-02-15 12:45] LABS: Crystals/HPF 2+ AMORPH URATES HPF (Negative); Other Casts/LPF None Seen LPF (0-3 Hyaline); Yeast-All Forms None Seen HPF (None Seen)
[2018-02-15] MEDS ORDERED: Aspirin 325 MG TAB ONE (13:07)
[2018-02-15] MEDS ORDERED: Piperacillin/Tazobactam 4.5 GM VIAL ONE (13:07)
[2018-02-15] MEDS ORDERED: Ondansetron ODT 4 MG TAB PO PRN (16:11)
[2018-02-15] MEDS ORDERED: cloNIDine 0.1 MG TAB PO PRN (16:11)
[2018-02-15] MEDS ORDERED: hydrALAZINE 20 MG/ML VIAL SLOW IVP PRN (16:11)
[2018-02-15] MEDS ORDERED: Ondansetron HCl/PF 4 MG/2 ML Vial IVP PRN (16:11)
[2018-02-15] MEDS ORDERED: Meropenem 1 GM in Sodium Chloride 0.9% 100 ML IVPB SCH (17:00)
[2018-02-15] MEDS ORDERED: Prevnar 13-Val Conj/PF 0.5 ML SYRINGE IM ONE (17:00)
[2018-02-15] MEDS: Ferrous Sulfate 325 MG TAB PO SCH (17:04)
[2018-02-15] MEDS: MEROPENEM 1 GM/50 ML 1 GM in Premix Bag 1 BAG IVPB SCH (17:05)
[2018-02-15] MEDS: Sodium Chloride 0.9% 1,000 ML IV SCH (17:07)
[2018-02-15 18:21] LABS: Troponin I 0.092 ng/mL (< 0.028)
--- NOTE | 2018-02-15 19:22 | HP ---
PRIMARY CARE PROVIDER: Marilee Llamas M.D. CHIEF COMPLAINT: General weakness. HISTORY OF PRESENT ILLNESS: This is an 87-year-old male who presents to [facility] Emergency Department with apparent multiple complaints per family in the isatu gency room, who provided the entire history. The patient was noted with hives that were open very wi de which became concerning to the family as this is not patient's typical behavior. The patient also had reported mild abdominal pain and nausea and generally feeling weak over the past one week prior to this evaluation. The patient's history is significant for suprapubic catheter placement secondari ly to chronic urinary retention. The patient with multiple recurrent urinary tract infections, on an tibiotic therapy multiple times in the remote past. The patient was last admitted to [facility] in 04/2017 after altered mentation due to likely urinary tract infection in the co ntext of indwelling suprapubic catheter. The patient was discharged to [facility] during the last hospital stay; however, transitioned back to home with family members. No spec [facility] reported history of fall, loss of consciousness; however, the patient does have chronic right-si ded weakness after the ischemic cerebrovascular accident in the remote past. In the emergency room, the patient underwent general evaluation including metabolic screening showing evidence of mild dehyd ration as well as elevated white blood cell count and urinalysis suspicious for infectious process in the context of indwelling suprapubic catheter. The patient received IV Zosyn, intravenous normal sa line and aspirin 324 mg. The patient was transferred to the observation unit for further evaluation. PAST MEDICAL HISTORY: 1. 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 2. 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 3. Hypertension. 4. History of prostate carcinoma. 5. Paroxysmal atrial fibrillation. 6. Diastolic heart failure. 7. Alzheimer's dementia. 8. Chronic obstructive pulmonary disease. 9. Sick sinus syndrome, status post pacemaker placement. 10. Obstructive uropathy. PAST SURGICAL HISTORY: 1. Status post prostatectomy. 2. Status post pacemaker placement. 3. Status post suprapubic catheter placement. CURRENT MEDICATIONS: 1. Lopressor 25 mg p.o. daily. 2. Torsemide 10 mg p.o. Sunday, Sunday, and Sunday. 3. Vitamin B12 1000 mcg p.o. daily. 4. Ferrous sulfate 325 mg p.o. b.i.d. 5. Folic acid 1 mg p.o. daily. 6. Zestril 5 mg p.o. daily. 7. Remeron 15 mg p.o. at bedtime. 8. Protonix 40 mg p.o. daily. 9. Flomax 0.4 mg p.o. daily. ALLERGIES: ACETAMINOPHEN, CODEINE, and HYDROCODONE. FAMILY HISTORY: Positive for hypertension, diabetes, and CVA in multiple family members. SOCIAL HISTORY: Patient resides in [place], [place], with his daughter and granddaughter. Prior smoking history, quitting more than 10 years prior to this evaluation. No alcohol or illicit drug use. REVIEW OF SYSTEMS: The following complete review of systems was negative, unless otherwise mentioned in the HPI or below: Constitutional: Weight loss or gain, ability to conduct usual activities. Skin: Rash, itching. Eyes: Double vision, pain. ENT/Mouth: Nose bleeding, neck stiffness, pain, tenderness. Cardiovascular: Palpitations, dyspnea on exertion, orthopnea. Respiratory: Shortness of breath, wheezing, cough, hemoptysis, fever or night sweats. Gastrointestinal: Poor appetite, abdominal pain, heartburn, nausea, vomiting, constipation, or diarrhea. Genitourinary: Urgency, frequency, dysuria, nocturia. Musculoskeletal: Pain, swelling. Neurologic/Psychiatric: Anxiety, depression. Allergy/Immunologic: Skin rash, bleeding tendency. PHYSICAL EXAMINATION: VITAL SIGNS: Currently, blood pressure 117/61, pulse 61, respiratory rate 14, temperature 97.6 degre es Fahrenheit, O2 saturation 94% on room air. GENERAL APPEARANCE: This is an 87-year-old male, alert and oriented x2, responds to direct questioning, disheveled and ill-appearing. HEENT: Pupils are equal, round, and reactive to light and accommodation. Extraocular muscles are in tact. No scleral icterus. Nares patent. OP is clear. Oral mucosa dry appearing. NECK: Supple, no cervical adenopathy, no thyromegaly, no carotid bruits, no JVD appreciated. Cervic al spine with full active and passive range of motion. No meningeal signs appreciated. CHEST: Lungs are clear to auscultation bilaterally. Diminished breath sounds in the bases. CARDIOVASCULAR: S1, S2 with distant heart sounds. No murmur, rub or gallop appreciated. ABDOMEN: Scaphoid, nontender, nondistended. Bowel sounds are positive in all four quadrants. No pa lpable mass. Suprapubic catheter in place with mild hyperemia at the skin surface and insertion site . EXTREMITIES: Warm and dry with fair turgor. No clubbing, cyanosis or asymmetric edema appreciated. Generalized atrophy noted. Pulses are palpable distally at the dorsalis pedis, posterior tibial, an d popliteal arteries bilaterally. Capillary refill less than 2 seconds. NEUROLOGIC: Right-sided weakness noted on exam. The patient moves all extremities. Not observed am bulatory during this exam. Cranial nerves II-XII are grossly intact. PERTINENT LABORATORY AND X-RAY FINDINGS: Sodium 134, potassium 4.1, chloride 100, CO2 of 22, BUN 27, creatinine 1.44. Estimated GFR 56, glucose 83. LFTs within normal limits. Troponin I 0.079, album in 2.8. CBC showed a white blood cell count 12.2, hemoglobin 10, hematocrit 31, platelet count 294 w ith 85% neutrophils. Urinalysis showed large blood, large leukocyte esterase with greater than 50 to too numerous to count. RBCs and WBCs per high powered field, 4+ bacteria noted. EKG dated 02/16/20 18 by my interpretation shows AV dual pacing with heart rates in the 60s. ASSESSMENT AND PLAN: 1. Urinary tract infection. Suspected given chronic indwelling suprapubic catheter. We will initia te meropenem 1 gram IV q.8 hours. Await final urine culture results. We will continue intravenous n ormal saline 75 mL per hour. 2. Acute kidney injury. We will continue intravenous normal saline at 75 mL per hour. Avoid nephro toxic agents and limit contrast exposure. Repeat creatinine in the a.m. 3. Toxic metabolic encephalopathy. Suspected given patient's underlying urinary tract infection and dehydration. We will continue supportive management as outlined in #1 and #2. 4. Deconditioning. We will obtain PT evaluation in the a.m. for functional assessment. Fall risk p recautions. 5. Hypertension. We will resume home antihypertensive regimen and monitor clinical response. Confi home blood pressure regimen. 6. Prophylaxis. Sequential compression devices while in bed. Pepcid 20 mg p.o. b.i.d. PT evaluati on for functional assessment. 7. Code status is FULL. Surrogate medical decision maker is the patient's daughter.
[2018-02-15] MEDS: Mirtazapine 15 MG TAB PO SCH (20:39)
[2018-02-15] MEDS: Famotidine 20 MG TAB PO SCH (20:39)
[2018-02-16] MEDS: MEROPENEM 1 GM/50 ML 1 GM in Premix Bag 1 BAG IVPB SCH ×3 (04:59→18:13)
[2018-02-16] MEDS: Sodium Chloride 0.9% 1,000 ML IV SCH ×2 (05:00→18:15)
[2018-02-16 05:44] LABS: Anion Gap 15 mmol/L (10-20); BUN (Urea Nitrogen) 25 mg/dL (8.4-25.7); Calc. Creatinine Clearance 32 mL/min (70-130); Carbon Dioxide 22 mmol/L (23-31); Chloride 102 mmol/L (98-107); Estimated GFR-MDRD 58; Glucose 70 mg/dL (83-110); Potassium 3.3 mmol/L (3.5-5.1); Sodium 136 mmol/L (136-145)
[2018-02-16 06:01] LABS: Band 1 % (5-11); Hemoglobin 11.1 g/dL (14.0-18.0); Lymphocytes 4 % (21-51); MDiff Complete? YES; Mean Corpuscular HGB CONC 33.1 g/dL (32.0-36.0); Mean Corpuscular Hemoglobin 30.3 pg (27.0-31.0); Mean Corpuscular Volume 91.4 fL (78.0-98.0); Mean Platelet Volume 7.3 fL (7.4-10.4); Monocytes 5 % (0-10); Neutrophil 90 % (42-75); PLT Morphology Comment Appears Adequate; Platelet Count 307 thou/uL (130-400); RBC Distribution Width 13.8 % (11.5-14.5); RBC Morphology Normal; Red Blood Cell (RBC) Count 3.67 mill/uL (4.70-6.10); White Blood Cell (WBC) Count 10.3 thou/uL (4.8-10.8)
[2018-02-16] MEDS: Folic Acid 1 MG TAB PO SCH (09:19)
[2018-02-16] MEDS: Tamsulosin HCl 0.4 MG CAP PO SCH (09:19)
[2018-02-16] MEDS: Ferrous Sulfate 325 MG TAB PO SCH ×2 (09:19→18:12)
[2018-02-16] MEDS: Metoprolol Tartrate 25 MG TAB PO SCH (09:19)
--- NOTE | 2018-02-16 13:54 | PDOC.PN ---
- Subjective Encounter Start Date: 02/16/18 Encounter Start Time: 13:52 Mr. Castellon was seen today in follow-up of UTI. He is awake, but confused. He appears comfortable. - Objective Resuscitation Status: Resuscitation Status FULL:Full Resuscitation MAR Reviewed: Yes Vital Signs & Weight: Vital Signs (12 hours) Temp Pulse Resp BP BP Pulse Ox 02/16/18 11:34 97.4 F L 61 20 136/66 96 02/16/18 08:10 97.4 F L 61 20 02/16/18 07:42 97.4 F L 73 24 H 196/89 H 97 02/16/18 04:59 74 20 124/90 100 Weight Weight 131 lb 3.2 oz I&O: 02/15/18 02/16/18 02/17/18 06:59 06:59 06:59 Intake Total 150 Output Total 500 900 Balance -350 -900 Result Diagrams: 02/16/18 04:42 02/16/18 04:42 Phys Exam - Physical Examination HEENT: PERRLA, sclera anicteric Respiratory: no wheezing, no rales, no rhonchi, clear to auscultation bilateral Cardiovascular: RRR, no significant murmur, no rub no gallop Gastrointestinal: soft, non-tender, no distention, positive bowel sounds Musculoskeletal: no edema Dx/Plan (1) UTI (urinary tract infection) Status: Acute Qualifiers: Urinary tract infection type: catheter-associated UTI (2) Metabolic encephalopathy Code(s): G93.41 - METABOLIC ENCEPHALOPATHY Status: Acute (3) HTN (hypertension) Code(s): I10 - ESSENTIAL (PRIMARY) HYPERTENSION Status: Chronic Qualifiers: Comment: (4) History of suprapubic catheter Code(s): Z98.890 - OTHER SPECIFIED POSTPROCEDURAL STATES Status: Chronic (5) Protein-calorie malnutrition, moderate Code(s): E44.0 - MODERATE PROTEIN-CALORIE MALNUTRITION Status: Chronic (6) Chronic kidney disease, stage 3 (moderate) Code(s): N18.3 - CHRONIC KIDNEY DISEASE, STAGE 3 (MODERATE) Status: Chronic - Plan * Complicated UTI due to chronic suprapubic catheter- still awaiting result of the urine culture * Continue Meropenem- as patient has a history of ESBL E. Coli * Acute on chronic kidney injury vs. Chronic kidney disease- continue to monitor with treatment * HTN- blood pressure has been a bit labile- will monitor, continue metoprolol, adn PRN hydralazine, and Clonidine * Protein calorie malnutrition- nutritional supplements as needed * Advanced dementia- stable.
[2018-02-16] MEDS: Mirtazapine 15 MG TAB PO SCH (20:04)
[2018-02-16] MEDS: Famotidine 20 MG TAB PO SCH (20:04)
[2018-02-17] MEDS: MEROPENEM 1 GM/50 ML 1 GM in Premix Bag 1 BAG IVPB SCH ×3 (01:21→17:58)
[2018-02-17 04:59] LABS: Anion Gap 13 mmol/L (10-20); BUN (Urea Nitrogen) 25 mg/dL (8.4-25.7); Calc. Creatinine Clearance 32 mL/min (70-130); Calcium 8.5 mg/dL (7.8-10.44); Carbon Dioxide 22 mmol/L (23-31); Chloride 105 mmol/L (98-107); Estimated GFR-MDRD 59; Glucose 81 mg/dL (83-110); Potassium 3.2 mmol/L (3.5-5.1); Sodium 137 mmol/L (136-145)
[2018-02-17] MEDS: Ferrous Sulfate 325 MG TAB PO SCH ×2 (08:48→17:16)
[2018-02-17] MEDS: Folic Acid 1 MG TAB PO SCH (08:48)
[2018-02-17] MEDS: Tamsulosin HCl 0.4 MG CAP PO SCH (08:48)
[2018-02-17] MEDS: Metoprolol Tartrate 25 MG TAB PO SCH (08:48)
[2018-02-17] MEDS: Sodium Chloride 0.9% 1,000 ML IV SCH ×2 (08:49→21:18)
--- NOTE | 2018-02-17 14:38 | PDOC.PN ---
- Subjective Encounter Start Date: 02/17/18 Encounter Start Time: 14:36 Mr. Castellon was seen today in follow-up of complicated UTI. He is sitting up in a chair, getting ready to eat lunch. He does not have any complaints. - Objective Resuscitation Status: Resuscitation Status FULL:Full Resuscitation MAR Reviewed: Yes Vital Signs & Weight: Vital Signs (12 hours) Temp Pulse Resp BP BP Pulse Ox 02/17/18 12:21 97.2 F L 60 16 138/81 02/17/18 08:13 98.8 F 60 18 152/86 H 97 02/17/18 08:00 98.8 F 60 18 02/17/18 04:00 97.8 F 62 12 162/80 H 97 Weight Weight 131 lb 3.2 oz I&O: 02/16/18 02/17/18 02/18/18 06:59 06:59 06:59 Intake Total 270 2510 410 Output Total 1000 1350 Balance -730 1160 410 Result Diagrams: 02/16/18 04:42 02/17/18 04:04 Phys Exam - Physical Examination HEENT: PERRLA Respiratory: no wheezing, no rales, no rhonchi, clear to auscultation bilateral Cardiovascular: RRR, no significant murmur, no rub Gastrointestinal: soft, non-tender, no distention, positive bowel sounds Musculoskeletal: no edema Dx/Plan (1) UTI (urinary tract infection) Status: Acute Qualifiers: Urinary tract infection type: catheter-associated UTI (2) HTN (hypertension) Code(s): I10 - ESSENTIAL (PRIMARY) HYPERTENSION Status: Chronic Qualifiers: Comment: (3) History of suprapubic catheter Code(s): Z98.890 - OTHER SPECIFIED POSTPROCEDURAL STATES Status: Chronic (4) Chronic kidney disease, stage 3 (moderate) Code(s): N18.3 - CHRONIC KIDNEY DISEASE, STAGE 3 (MODERATE) Status: Chronic (5) Protein-calorie malnutrition, moderate Code(s): E44.0 - MODERATE PROTEIN-CALORIE MALNUTRITION Status: Chronic (6) Metabolic encephalopathy Code(s): G93.41 - METABOLIC ENCEPHALOPATHY Status: Acute - Plan * UTI- continue Meropenem- , urine culture was not ordered- so will continue Meropenem for now * HTN- overall stable * Chronic kidney disease stage 3- stable * Encephalopathy- stable * Moderate Malnutrition- continue to encourage oral intake.
[2018-02-17] MEDS ORDERED: Potassium Chloride 20 MEQ TAB PO SCH (16:45)
[2018-02-17] MEDS: Mirtazapine 15 MG TAB PO SCH (20:50)
[2018-02-17] MEDS: Famotidine 20 MG TAB PO SCH (20:50)
[2018-02-18] MEDS: MEROPENEM 1 GM/50 ML 1 GM in Premix Bag 1 BAG IVPB SCH ×3 (00:48→15:17)
[2018-02-18] MEDS: Tamsulosin HCl 0.4 MG CAP PO SCH (08:47)
[2018-02-18] MEDS: Metoprolol Tartrate 25 MG TAB PO SCH (08:47)
[2018-02-18] MEDS: Folic Acid 1 MG TAB PO SCH (08:47)
[2018-02-18] MEDS: Ferrous Sulfate 325 MG TAB PO SCH ×2 (08:48→15:16)
[2018-02-18] MEDS: Sodium Chloride 0.9% 1,000 ML IV SCH (12:15)
--- NOTE | 2018-02-18 16:21 | PDOC.PN ---
- Subjective Encounter Start Date: 02/18/18 Encounter Start Time: 16:20 Mr. Castellon was seen today in follow-up of UTI. He does not have any complaints. He is sitting up in a chair, and appears comfortable. - Objective Resuscitation Status: Resuscitation Status FULL:Full Resuscitation MAR Reviewed: Yes Vital Signs & Weight: Vital Signs (12 hours) Temp Pulse Resp BP BP Pulse Ox 02/18/18 11:57 73 16 139/74 02/18/18 08:04 98.1 F 61 16 139/75 93 L 02/18/18 08:00 98.1 F 61 16 02/18/18 05:20 98.1 F 67 16 138/76 91 L Weight Weight 131 lb 3.2 oz I&O: 02/17/18 02/18/18 02/19/18 06:59 06:59 06:59 Intake Total 2510 1870 1600 Output Total 1350 325 650 Balance 1160 1545 950 Result Diagrams: 02/16/18 04:42 02/17/18 04:04 Phys Exam - Physical Examination HEENT: PERRLA Respiratory: no wheezing, no rales, no rhonchi, clear to auscultation bilateral Cardiovascular: RRR, no significant murmur, no rub Gastrointestinal: soft, non-tender, no distention, positive bowel sounds Musculoskeletal: edema present trace edema Dx/Plan (1) UTI (urinary tract infection) Status: Acute Qualifiers: Urinary tract infection type: catheter-associated UTI (2) HTN (hypertension) Code(s): I10 - ESSENTIAL (PRIMARY) HYPERTENSION Status: Chronic Qualifiers: Comment: (3) History of suprapubic catheter Code(s): Z98.890 - OTHER SPECIFIED POSTPROCEDURAL STATES Status: Chronic (4) Chronic kidney disease, stage 3 (moderate) Code(s): N18.3 - CHRONIC KIDNEY DISEASE, STAGE 3 (MODERATE) Status: Chronic (5) Protein-calorie malnutrition, moderate Code(s): E44.0 - MODERATE PROTEIN-CALORIE MALNUTRITION Status: Chronic (6) Metabolic encephalopathy Code(s): G93.41 - METABOLIC ENCEPHALOPATHY Status: Acute - Plan * UTI- urine culture was not sent from admission. A repeat culture was done but is negative , but he has celio on antibiotics for several days. His last urine culture in July grew E. coli which was multi- drug resistant, and Pseudomonas, Will consult ID to aid in antibiotic * HTN- blood pressure has improved * CKD stage 3- stable * Continue to encourage oral intake.
--- NOTE | 2018-02-18 20:14 | CT ---
CT BRAIN WITHOUT CONTRAST: HISTORY: Weakness and inability to bear weight. COMPARISON: 04/17/2017 TECHNIQUE: Multiple contiguous axial images were obtained in a CT of the brain without contrast. FINDINGS: Diffuse scattered hypodensities in the subcortical and periventricular white matter are likely second alejandra to small vessel ischemic disease. No large confluent infarction is seen. There is no evidence o f hydrocephalus, intracranial hemorrhage, or extraaxial fluid collections. The calvarium and overlying soft tissues are unremarkable. The visualized paranasal sinuses and mast oid air cells are well aerated. IMPRESSION: 1. No evidence of acute intracranial abnormality. 2. Small vessel ischemic disease. POS: [facility]
--- NOTE | 2018-02-18 20:20 | CT ---
CT ABDOMEN AND PELVIS WITHOUT CONTRAST: HISTORY: Abnormal urinalysis with neutrophilia. The patient has a suprapubic catheter. Weakness and inabilit y to bear weight. COMPARISON: 08/11/2016 TECHNIQUE: Multiple contiguous axial images were obtained in a CT of the abdomen and pelvis without contrast. C oronal reformats were performed. FINDINGS: The patient has a suprapubic catheter within the urinary bladder. Severe left hydronephrosis and mod erate right hydronephrosis are seen. Both ureters are enlarged. There are large hypodensities in odalys th kidneys, which likely represent cysts. There are new hypodensities scattered throughout the liver, measuring up to 2.6 cm in size. These shultz ve a targetoid appearance, concerning for metastatic disease. The gallbladder appears contracted. T he adrenal glands, spleen, and pancreas are unremarkable, although evaluation is limited without IV c ontrast. Moderate stool is seen in the colon. The small bowel is normal in caliber. Diffuse soft tissue anas arca is seen. Atherosclerotic calcifications are seen in the aorta. No abdominal or pelvic lymphade nopathy is seen. There are small bilateral pleural effusions. Atelectasis is seen in the right lung base. A small pulmonary nodule is partially visualized in the left lower lobe. There are mixed sclerotic/lytic lesions involving the bones of the pelvis, most prominent near the pu bic symphysis. These are new compared to the prior examination and are concerning for osseous metast atic lesions. The sacroiliac joints are fused. IMPRESSION: 1. There are new lesions in the liver, likely secondary to metastatic disease. Correlate with histo ry of malignancy. The source is unclear on this noncontrast examination. 2. Bilateral hydronephrosis. The suprapubic catheter is in an appropriate position within the urina ry bladder, and the urinary bladder is not distended. 3. Bilateral renal cysts. 4. New osseous lesions in the bones of the pelvis are concerning for osseous metastatic disease. 5. Bilateral pleural effusions. POS: [facility]
--- NOTE | 2018-02-18 21:08 | RAD ---
SINGLE VIEW CHEST: HISTORY: Weakness and neutrophilia. COMPARISON: 04/17/2017 FINDINGS: A single view of the chest shows a normal sized cardiomediastinal silhouette. The pacemaker is uncha nged in position. There is no evidence of consolidation, mass, or pleural effusion. IMPRESSION: Cardiomegaly without evidence of acute cardiopulmonary disease. POS: [facility]
[2018-02-18] MEDS: Famotidine 20 MG TAB PO SCH (21:11)
[2018-02-18] MEDS: Mirtazapine 15 MG TAB PO SCH (21:11)
--- NOTE | 2018-02-18 22:26 | CON ---
DATE OF CONSULTATION: 02/18/2018 REASON: Possible UTI. HISTORY OF PRESENT ILLNESS: Mr. Castellon is an 87-year-old gentleman with history of sick sinus syndr ome with pacemaker and urinary retention due to BPH as well as prior resected prostate cancer, initia lly chronic indwelling Salomon catheter which has been transitioned to a suprapubic catheter and has be en treated for episodes of invasive UTIs in the past. I have seen him at least once before. Most of the culture positivity is from the urine and he has had sometimes positive blood cultures as well golden as in 08/2016 with same organisms retrieved from the urinary tract. The last positive culture fro m the urine was E. coli with an ESBL phenotype and Pseudomonas aeruginosa in July of this year. Unfortunately, at this time he did not have any samples submitted for culture until 2 days after admi ssion when he had been already on antimicrobial therapy for 48 hours. He presented with weakness wit hout any history of documented fever in the home setting and initial findings included BP 126/77, pul se 78, respirations 16, temperature 97.5 with O2 sat 95% on room air. The overall exam was not parti cularly remarkable. Initial laboratory data with a white cell count 12,000, hemoglobin 10, MCV 91, p latelets 294 with 85% neutrophils. Chemistry is 1.44. His baseline creatinine is 0.8 in April of last year. Liver profile was not remarkable, albumin 2.8. Urinalysis with abnormal findings which is expected since patient has a suprapubic catheter. IMAGING DATA: This looks like no imaging studies were completed for this admission. In the last, a brain CT scan was done in April of last year and it showed involutional changes and chronic ischem ic white matter changes. Patient was given IV piperacillin, tazobactam and transition to meropenem a nd while in the hospital, patient has remained afebrile. His vital signs have remained with systolic pressure elevation. He has never been tachycardic. PAST MEDICAL HISTORY: Sick sinus syndrome, pacemaker, prostate cancer resection, BPH, chronic indwel ling Salomon catheter and then transitioned to suprapubic catheter, multiple UTIs some of them bacterem ic, renal insufficiency with improvement, and hypertension. PAST SURGICAL HISTORY: Prostatectomy. SOCIAL HISTORY: [facility] a [facility] before and now appears to be living with family, shultz d been a smoker before. ALLERGIES: TYLENOL, HYDROCODONE. CURRENT MEDICATIONS: Meropenem, metoprolol, mirtazapine, ondansetron, tamsulosin, clonidine, Pepcid, Feosol, Folvite. FAMILY HISTORY: Hypertension, diabetes, and prior CVA. PHYSICAL EXAMINATION: VITAL SIGNS: Have been noted above. There is no fever. BP 167/94, pulse 60, respirations 16. SKIN: With no areas of skin breakdown. Peripheral IV access. Suprapubic catheter with normal appea ring exit site. HEENT: Ocular movements are conjugate. Oral cavity with numerous missing teeth. Moist mucosa. NECK: Supple. LUNGS: With symmetric air entry. No crackles or wheezing. HEART: S1, S2, regular rate. Pacer pocket site appears normal. ABDOMEN: Soft, nondistended or tender. No ascites. The patient has diffuse stiffness. MUSCULOSKELETAL: 1+ edema lower extremities. Able to move extremities. NEUROLOGIC: Plantar responses are flexure. LABORATORY DATA: Latest white cell count 10.3, hemoglobin 11, platelets 307 with 90% neutrophils. 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 DISCUSSION: Differential diagnosis includes invasive UTI recurrence, an alternate process such as CV A, intrathoracic abnormality less likely. Check chest x-ray, CT of brain, CT of abdomen stone protoc ol.
[2018-02-19] MEDS: MEROPENEM 1 GM/50 ML 1 GM in Premix Bag 1 BAG IVPB SCH ×3 (01:30→20:02)
[2018-02-19] MEDS: Sodium Chloride 0.9% 1,000 ML IV SCH ×2 (01:31→16:45)
[2018-02-19] MEDS: Ferrous Sulfate 325 MG TAB PO SCH ×2 (11:11→16:47)
[2018-02-19] MEDS: Folic Acid 1 MG TAB PO SCH (11:11)
[2018-02-19] MEDS: Metoprolol Tartrate 25 MG TAB PO SCH (11:12)
[2018-02-19] MEDS: Tamsulosin HCl 0.4 MG CAP PO SCH (11:13)
--- NOTE | 2018-02-19 11:27 | PDOC.PN ---
- Subjective Encounter Start Date: 02/19/18 Encounter Start Time: 11:24 Mr. Castellon was seen today in follow-up of complicated UTI. He is laying in bed , and does not have any complaints. - Objective Resuscitation Status: Resuscitation Status FULL:Full Resuscitation MAR Reviewed: Yes Vital Signs & Weight: Vital Signs (12 hours) Temp Pulse Resp BP Pulse Ox 02/19/18 04:00 97.7 F 62 18 147/81 H 99 02/19/18 00:00 97.7 F 76 18 165/90 H 100 Weight Weight 131 lb 3.2 oz I&O: 02/18/18 02/19/18 02/20/18 06:59 06:59 06:59 Intake Total 1870 3093 Output Total 325 950 Balance 1545 2143 Result Diagrams: 02/16/18 04:42 02/17/18 04:04 Phys Exam - Physical Examination HEENT: PERRLA Respiratory: no wheezing, no rales, no rhonchi, clear to auscultation bilateral Cardiovascular: RRR, no significant murmur, no rub no gallop Gastrointestinal: soft, non-tender, no distention, positive bowel sounds Musculoskeletal: no edema Dx/Plan (1) UTI (urinary tract infection) Status: Acute Qualifiers: Urinary tract infection type: catheter-associated UTI (2) HTN (hypertension) Code(s): I10 - ESSENTIAL (PRIMARY) HYPERTENSION Status: Chronic Qualifiers: Comment: (3) History of suprapubic catheter Code(s): Z98.890 - OTHER SPECIFIED POSTPROCEDURAL STATES Status: Chronic (4) Chronic kidney disease, stage 3 (moderate) Code(s): N18.3 - CHRONIC KIDNEY DISEASE, STAGE 3 (MODERATE) Status: Chronic (5) Protein-calorie malnutrition, moderate Code(s): E44.0 - MODERATE PROTEIN-CALORIE MALNUTRITION Status: Chronic (6) Metabolic encephalopathy Code(s): G93.41 - METABOLIC ENCEPHALOPATHY Status: Acute - Plan * UTI- unfortunately thre are no culture results to rely on. ID has been consulted, and appreciate the input.- will continue Meropenem * It's noted on the CT scan that he has some lesions in the liver and osseous lesions which appear to be metastatic disease. He has a history of prostate cancer- will check a PSA, and will need to discuss with family * HTN- blood pressure is stable * Malnutrition- moderate- encourage oral intake * COPD- stable
--- NOTE | 2018-02-19 18:22 | PRG ---
DATE OF SERVICE: 02/19/2018 The patient is still feeling stiffness in the legs, but he denies any chest pain, a little bit of toro k pain. PHYSICAL EXAMINATION: VITAL SIGNS: T-max 98.5. He has never been febrile in the hospital. Blood pressure 140/80, pulse 6 2. GENERAL: Awake, alert, oriented. LUNGS: Symmetric air entry. HEART: S1, S2, regular rate. ABDOMEN: Soft. He is able to move extremities and stand up. LABORATORY DATA: His white cell count is down to 10.3, hemoglobin 11 and a chemistry with creatinine 1.38, albumin 2.8. Urine culture with gram negative chapin from suprapubic catheter. Abdomen and pelv is CT showed new lesions in the liver, likely secondary to metastatic disease, bilateral hydronephros is, suprapubic catheter in appropriate position and new osseous lesions in the bones of the pelvis co ncerning for metastatic disease. ASSESSMENT AND DISCUSSION: Prostate cancer, most likely with metastatic disease, now to spine, pelvi s and liver. He may have spine mets as well in addition to the pelvic mets and not clear if the urin alejandra findings were symptomatic. The suprapubic catheter will necessarily lead to persistent abnormali ties in the urinalysis in these patients and those findings do not correlate all the time with the cl inical presentation and it could be an innocent bystander and the primary issue might be the metastat ic malignancy. May consider PSA and then referral to Urology if PSA is elevated for palliative care with hormonal antagonist or antiandrogen administration. It gently could be a metastatic cancer from an alternate source. In terms of giving antimicrobial therapy at this point, would wait for the jesica ceptibilities of the organism retrieved from the urinary tract since it might allow us to treat with oral antimicrobials without having to place a PICC line and give IV in the longterm.
[2018-02-19] MEDS: Famotidine 20 MG TAB PO SCH (20:01)
[2018-02-19] MEDS: Mirtazapine 15 MG TAB PO SCH (20:02)
[2018-02-20] MEDS: Sodium Chloride 0.9% 1,000 ML IV SCH ×2 (03:43→18:20)
[2018-02-20] MEDS: Metoprolol Tartrate 25 MG TAB PO SCH (08:08)
[2018-02-20] MEDS: Ferrous Sulfate 325 MG TAB PO SCH ×2 (08:09→18:20)
[2018-02-20] MEDS: Tamsulosin HCl 0.4 MG CAP PO SCH (08:09)
[2018-02-20] MEDS: Folic Acid 1 MG TAB PO SCH (08:09)
[2018-02-20] MEDS: MEROPENEM 1 GM/50 ML 1 GM in Premix Bag 1 BAG IVPB SCH ×2 (08:09→20:45)
--- NOTE | 2018-02-20 14:12 | PDOC.PN ---
- Subjective Encounter Start Date: 02/20/18 Encounter Start Time: 14:10 Mr. Castellon was seen today in follow-up. He does not have any complaints today. He denies having any pain. - Objective Resuscitation Status: Resuscitation Status FULL:Full Resuscitation MAR Reviewed: Yes Vital Signs & Weight: Vital Signs (12 hours) Temp Pulse Resp BP Pulse Ox 02/20/18 08:00 96.7 F L 69 16 100 02/20/18 07:06 96.7 F L 69 16 162/81 H 100 Weight Weight 131 lb 3.2 oz I&O: 02/19/18 02/20/18 02/21/18 06:59 06:59 06:59 Intake Total 3093 3345 480 Output Total 950 1375 150 Balance 2143 1970 330 Result Diagrams: 02/16/18 04:42 02/17/18 04:04 Phys Exam - Physical Examination HEENT: PERRLA Respiratory: no wheezing, no rales, no rhonchi, clear to auscultation bilateral Cardiovascular: RRR, no significant murmur, no rub Gastrointestinal: soft, non-tender, no distention, positive bowel sounds Musculoskeletal: edema present trace pedal edema Neurological: non-focal, moves all 4 limbs Dx/Plan (1) UTI (urinary tract infection) Status: Acute Qualifiers: Urinary tract infection type: catheter-associated UTI (2) HTN (hypertension) Code(s): I10 - ESSENTIAL (PRIMARY) HYPERTENSION Status: Chronic Qualifiers: Comment: (3) History of suprapubic catheter Code(s): Z98.890 - OTHER SPECIFIED POSTPROCEDURAL STATES Status: Chronic (4) Chronic kidney disease, stage 3 (moderate) Code(s): N18.3 - CHRONIC KIDNEY DISEASE, STAGE 3 (MODERATE) Status: Chronic (5) Protein-calorie malnutrition, moderate Code(s): E44.0 - MODERATE PROTEIN-CALORIE MALNUTRITION Status: Chronic (6) Metabolic encephalopathy Code(s): G93.41 - METABOLIC ENCEPHALOPATHY Status: Acute - Plan * UTI- awaiting the results of the urine culture done after admission * Metastatic cancer- probable prostate ( PSA was elevated)- I discussed this with the patient's daughter, and she tells me he saw Dr. Suzanne Carter in the past, and will consult. He may benefit from palliative treatment with an anti -androgen * HTN- blood pressure is a bit elevated- will re-start Lisinopril * CKD stage 3- stable * Metabolic encephalopathy- resolved * Moderate Protein calorie malnutrition- stable.
[2018-02-20] MEDS: Mirtazapine 15 MG TAB PO SCH (20:45)
[2018-02-20] MEDS: Famotidine 20 MG TAB PO SCH (20:45)
--- NOTE | 2018-02-20 22:20 | CON ---
DATE OF CONSULTATION: 02/20/2018 CONSULTING PHYSICIAN: Dr. Yost. CONSULTED PHYSICIAN: Mitesh Yeung M.D. REASON FOR CONSULTATION: Metastatic prostate cancer. HISTORY OF PRESENT ILLNESS: Mr. Castellon is an 87-year-old black male who is well known to me for history of prostate cancer. I have been following him in the office due to advanced prostate cancer, Royal 5+5 and with bladder outlet obstruction. We had managed his bladder with a suprapubic tube, which he has had for quite some time now. He does not recall who changes his tube, but states that he does get changed periodically. Unfortunately, the patient ended up in the emergency room recently with multiple complaints including altered mental status, abnormal behavior, abdominal pain, nausea, vomiting, weakness. He was found to have urosepsis and significant urinary infection, has been started on meropenem antibiotics. He had a PSA done which was elevated up to [address] done which demonstrates osseous pelvic metastatic disease, lymphadenopathy in bilateral hydronephrosis despite SP tube placement and decompressed bladder. I have been consulted for further assistance. Previously , the patient has not had any symptoms regarding his prostate cancer. He has not had any evidence of renal failure and was continued to produce good urine, although he is not able to urinate on his own. He does manage his bladder with a suprapubic tube. He denies any recent hematuria. He states he is currently not having any pelvic pain, bony pains, or significant fatigue. He is feeling better than he did before. He is still not quite back to his normal self and this appears to be somewhat confused while talking to him, but for the most part seems to be answering questions relatively appropriately. PAST MEDICAL HISTORY: 1. Chronic suprapubic tube with recurrent urinary tract infections. 2. History of cerebrovascular accident with right hemiparesis. 3. Hypertension. 4. Prostate cancer, high risk. 5. Paroxysmal atrial fibrillation. 6. Diastolic heart failure. 7. Alzheimer's dementia. 8. Chronic obstructive pulmonary disease. 9. Sick sinus syndrome, status post pacemaker placement. 10. 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 PAST SURGICAL HISTORY: 1. Status post channel TURP. 2. Status post pacemaker placement. 3. Status post SP tube placement. HOME MEDICATIONS: 1. Lopressor. 2. Torsemide. 3. Vitamin B12. 4. Ferrous sulfate. 5. Folate. 6. Zestril. 7. Remeron. 8. Protonix. 9. Flomax. ALLERGIES: 1. ACETAMINOPHEN. 2. CODEINE. 3. HYDROCODONE. FAMILY HISTORY: Significant for hypertension, diabetes, and cardiovascular disease. SOCIAL HISTORY: Patient resides in [place] with his daughter and granddaughter. He previously used to smoke, but quit. He denies any alcohol or illicit drug use. REVIEW OF SYSTEMS: A 12-point review of system is unremarkable, other than what was commented on initially in the HPI, which has now resolved. He currently has no complaints. PHYSICAL EXAMINATION: VITAL SIGNS: Temperature 96.7, pulse 69, respirations 16, blood pressure 162/81 , saturations 100% on room air. GENERAL: No apparent distress. He is responding to questions, but not always talking clearly. He seems slightly somnolent, but is otherwise maintaining eye contact, does not appear to drift off during conversation. HEENT: Normocephalic, atraumatic. Sclerae are nonicteric. Pupils are symmetric and round. Some cloudiness to the corneas. Trachea midline. Poor dentition. CARDIOVASCULAR: Irregularly irregular rhythm. Normal S1, S2. Symmetric pulses. CHEST: No increased work of breathing. Clear to auscultation anteriorly, nonlabored breathing. ABDOMEN: Soft, nontender, nondistended, positive bowel sounds. No organomegaly. SP tube is in good location, draining clear yellow urine. No suprapubic tenderness. GENITOURINARY: Nonfocal penis, scrotum were not edematous. Testes are bilaterally descended. BENJAMÍN is deferred at this time. EXTREMITIES: No clubbing, cyanosis, or edema. MUSCULOSKELETAL: No joint deformities or joint erythema noted. No redness or swelling of any of the joints. Good range of motion. There is no obvious tenderness on his pelvic bones. SKIN: Warm, dry, poor turgor, no rashes or lesions. NEUROLOGIC: Cranial nerves II-XII appeared grossly intact. The patient does have weakness on his right side, but does move all extremities. Ambulatory status was not tested. PSYCHIATRIC: Alert and oriented x2. Appropriate mood and affect, although he does seem a little bit confused. LABORATORY EVALUATION: A full set of labs in the [employer] system, which I have reviewed. Of note, patient's most recent PSA is 84.9 with a creatinine of 1.38. White count is 10.3 with hemoglobin of 11.1 and platelet count of 307. CT from 02/18/2018 demonstrated new lesions in the liver likely secondary to metastatic disease, bilateral hydronephrosis with suprapubic catheter in appropriate position with decompressed bladder, bilateral renal cysts. new osseous lesions in the bones of the pelvis concerning for osseous metastatic disease, and bilateral pleural effusions. ASSESSMENT AND PLAN: An 87-year-old black male with likely metastatic prostate cancer with visceral and osseous metastatic disease. He is asymptomatic at this time, but I would recommend going ahead and starting him on bicalutamide for medical castration. He probably would benefit from Lupron ultimately but that is not available in the hospital and he will need to follow up with me in the office to receive his Lupron injections. He probably can be taken off bicalutamide once he is able to start on his Lupron injections. Regarding his hydronephrosis, this is likely secondary to advancing prostate cancer with obstruction of his ureteral orifices. Given that he currently has an infection with evidence of acute kidney injury. I would give strong consideration to bilateral percutaneous nephrostomy tubes at least until his infection clears and his prostate cancer regresses some. We may be able to remove the nephrostomy tubes at that time. I would continue the SP tube as well as the patient does not have complete bilateral obstruction, as his creatinine is not super elevated, and he continues to make urine. We will continue to change his SP tube every 30 days as necessary. I recommend continuation of his antibiotics per Dr. Preciado and the medicine team. I will continue to follow along and make recommendations. I will go ahead and prepare him for bilateral nephrostomy tubes. I discussed this with the patient and he is in agreement that he would like to have the nephrostomy tubes placed. I have also asked if any family is present, but he does not appear to think that any family is coming to visit him or has been with him during this hospitalization. NATHALIE
[2018-02-21] MEDS: Sodium Chloride 0.9% 1,000 ML IV SCH ×2 (04:39→17:01)
[2018-02-21 04:42] LABS: INR-International Normal Ratio 1.2; PTT 42.3 SEC (22.9-36.1); Prothrombin Time 15.6 SEC (12.0-14.7)
[2018-02-21] MEDS: Metoprolol Tartrate 25 MG TAB PO SCH (05:59)
[2018-02-21] MEDS ORDERED: Iopamidol 300 61% 50 ML VIAL FS ONE (08:26)
[2018-02-21] MEDS: Folic Acid 1 MG TAB PO SCH (09:15)
[2018-02-21] MEDS: Ferrous Sulfate 325 MG TAB PO SCH ×2 (09:15→17:00)
[2018-02-21] MEDS: Lisinopril 5 MG TAB PO SCH (09:15)
[2018-02-21] MEDS: MEROPENEM 1 GM/50 ML 1 GM in Premix Bag 1 BAG IVPB SCH ×2 (09:16→21:44)
[2018-02-21] MEDS: Tamsulosin HCl 0.4 MG CAP PO SCH (09:16)
[2018-02-21] MEDS: Bicalutamide 50 MG TAB PO SCH (10:38)
[2018-02-21] MEDS ORDERED: Midazolam HCl 2 mg/2 ml Vial ONE (14:01)
--- NOTE | 2018-02-21 16:27 | SPC ---
BILATERAL PERCUTANEOUS NEPHROSTOMY TUBE PLACEMENT: 02/21/2018 HISTORY: Bilateral hydronephrosis. Bilateral percutaneous nephrostomy tube placement was requested. TECHNIQUE: After informed consent was obtained, the patient was placed on the angiography table in the prone pos ition. Limited sonographic evaluation of each kidney was performed. An area overlying the inferior pole calyx of each kidney was marked, and the areas were then meticulously prepped and draped in the usual sterile fashion. The patient is receiving antibiotics while in the hospital and, as a result, no additional IV antibiotics were administered at this time. Limited sonographic evaluation was utilized to access an inferior pole posterior right renal calyx af ter the skin and subcutaneous tissues were infiltrated with buffered 1% Lidocaine. A 21 gauge microp uncture needle was exchanged over the 0.018 inch guidewire for a 4 Moroccan introducer sheath. A 0.035 inch Amplatz guidewire was then placed, and the introducer sheath was exchanged over the guidewire f or an 8 Moroccan tissue dilator, followed by placement of an 8 Moroccan nephrostomy tube. The distal por tion of the nephrostomy tube was placed within the renal pelvis. Contrast injection confirmed placem ent of the renal collecting system. The catheter was flushed and placed to gravity drainage. The ca theter was sutured in place utilizing 2-0 Ethilon suture material. An inferior pole left renal calyx was then accessed utilizing micropuncture technique and concurrent real-time ultrasound guidance. A 4 Moroccan introducer sheath was placed. A 0.035 inch Amplatz guidew mariana was placed, and the introducer sheath was exchanged over the guidewire for an 8 Moroccan tissue dil ator, followed by placement of an 8 Moroccan nephrostomy tube. The distal portion of the nephrostomy t ube was placed within the renal pelvis. The catheter was sutured in place utilizing 2-0 Ethilon sutu re material, and the catheter was placed to gravity drainage. Dry, sterile dressings were placed ove r each catheter entry site. The patient tolerated the procedure well and without immediate complication. TOTAL FLUOROSCOPY TIME: 1.3 minutes TOTAL DOSE: 10,572 mGy per cm2. IMPRESSION: 1. Moderate to severe bilateral hydronephrosis. 2. Technically successful bilateral nephrostomy tube placement with [address] d bilaterally. POS: [facility]
--- NOTE | 2018-02-21 16:47 | PDOC.PN ---
- Subjective Encounter Start Date: 02/21/18 Encounter Start Time: 16:37 - Objective Resuscitation Status: Resuscitation Status FULL:Full Resuscitation MAR Reviewed: Yes Vital Signs & Weight: Vital Signs (12 hours) Temp Pulse Resp BP BP BP Pulse Ox 02/21/18 15:30 97.3 F L 72 16 181/109 H 96 02/21/18 12:00 162/84 H 02/21/18 09:15 64 172/73 H 02/21/18 08:00 97.6 F 64 18 172/73 H 100 02/21/18 07:30 163/82 H Weight Weight 131 lb 3.2 oz I&O: 02/20/18 02/21/18 02/22/18 06:59 06:59 06:59 Intake Total 3345 3340 Output Total 1375 2250 Balance 1970 1090 Result Diagrams: 02/16/18 04:42 02/17/18 04:04 Phys Exam - Physical Examination HEENT: PERRLA Respiratory: no wheezing, no rales, no rhonchi, clear to auscultation bilateral Cardiovascular: RRR, no significant murmur, no rub Gastrointestinal: soft, non-tender, no distention, positive bowel sounds Musculoskeletal: no edema Dx/Plan (1) UTI (urinary tract infection) Status: Acute Qualifiers: Urinary tract infection type: catheter-associated UTI (2) HTN (hypertension) Code(s): I10 - ESSENTIAL (PRIMARY) HYPERTENSION Status: Chronic Qualifiers: Comment: (3) History of suprapubic catheter Code(s): Z98.890 - OTHER SPECIFIED POSTPROCEDURAL STATES Status: Chronic (4) Prostate cancer metastatic to multiple sites Code(s): C61 - MALIGNANT NEOPLASM OF PROSTATE Status: Acute (5) Chronic kidney disease, stage 3 (moderate) Code(s): N18.3 - CHRONIC KIDNEY DISEASE, STAGE 3 (MODERATE) Status: Chronic (6) Protein-calorie malnutrition, moderate Code(s): E44.0 - MODERATE PROTEIN-CALORIE MALNUTRITION Status: Chronic (7) Metabolic encephalopathy Code(s): G93.41 - METABOLIC ENCEPHALOPATHY Status: Acute - Plan * UTI- due to obstructive Uropathy- Continue Meropenem * Metastatic Prostate cancer- Urology input appreciated- plan is for the placement of bilateral Nephrostomy tubes * Plan for Casodex and Lupron therapy * HTN- blood pressure is not controlled- will add Amlodipine * Acute on chronic kidney disease- stable * Metabolic encephalopathy- improved
[2018-02-21] MEDS: Potassium Chloride 20 MEQ TAB PO SCH (17:00)
[2018-02-21] MEDS: Famotidine 20 MG TAB PO SCH (21:44)
[2018-02-21] MEDS: Mirtazapine 15 MG TAB PO SCH (21:44)
[2018-02-22] MEDS: Ferrous Sulfate 325 MG TAB PO SCH ×2 (08:37→16:53)
[2018-02-22] MEDS: Sodium Chloride 0.9% 1,000 ML IV SCH ×2 (08:37→21:21)
[2018-02-22] MEDS: Potassium Chloride 20 MEQ TAB PO SCH ×2 (08:37→16:52)
[2018-02-22] MEDS: Lisinopril 5 MG TAB PO SCH (08:38)
[2018-02-22] MEDS: MEROPENEM 1 GM/50 ML 1 GM in Premix Bag 1 BAG IVPB SCH ×2 (08:38→21:24)
[2018-02-22] MEDS: Tamsulosin HCl 0.4 MG CAP PO SCH (08:38)
[2018-02-22] MEDS: Folic Acid 1 MG TAB PO SCH (08:38)
[2018-02-22] MEDS: Metoprolol Tartrate 25 MG TAB PO SCH (08:39)
[2018-02-22] MEDS: Bicalutamide 50 MG TAB PO SCH (08:48)
--- NOTE | 2018-02-22 14:39 | PDOC.PN ---
- Subjective Encounter Start Date: 02/22/18 Encounter Start Time: 14:36 Mr. Castellon was seen today in follow-up of UTI and Obstructive Uropathy. He is confused, but appears comfortable, no complaints. - Objective Resuscitation Status: Resuscitation Status FULL:Full Resuscitation MAR Reviewed: Yes Vital Signs & Weight: Vital Signs (12 hours) Temp Pulse Resp BP BP Pulse Ox 02/22/18 08:38 65 165/83 H 02/22/18 08:00 96.8 F L 65 16 165/83 H 100 Weight Weight 131 lb 3.2 oz I&O: 02/21/18 02/22/18 02/23/18 06:59 06:59 06:59 Intake Total 3340 2350 Output Total 2250 2550 Balance 1090 -200 Result Diagrams: 02/16/18 04:42 02/17/18 04:04 Phys Exam - Physical Examination HEENT: PERRLA Respiratory: no wheezing, no rales, no rhonchi, clear to auscultation bilateral Cardiovascular: RRR, no significant murmur, no rub no gallop Gastrointestinal: soft, non-tender, no distention, positive bowel sounds Musculoskeletal: edema present + swelling in the left upper extremity Neurological: non-focal Dx/Plan (1) UTI (urinary tract infection) Status: Acute Qualifiers: Urinary tract infection type: catheter-associated UTI (2) HTN (hypertension) Code(s): I10 - ESSENTIAL (PRIMARY) HYPERTENSION Status: Chronic Qualifiers: Comment: (3) History of suprapubic catheter Code(s): Z98.890 - OTHER SPECIFIED POSTPROCEDURAL STATES Status: Chronic (4) Prostate cancer metastatic to multiple sites Code(s): C61 - MALIGNANT NEOPLASM OF PROSTATE Status: Acute (5) Chronic kidney disease, stage 3 (moderate) Code(s): N18.3 - CHRONIC KIDNEY DISEASE, STAGE 3 (MODERATE) Status: Chronic (6) Protein-calorie malnutrition, moderate Code(s): E44.0 - MODERATE PROTEIN-CALORIE MALNUTRITION Status: Chronic (7) Metabolic encephalopathy Code(s): G93.41 - METABOLIC ENCEPHALOPATHY Status: Acute - Plan * UTI due to Obstructive Uropathy- continue Meropenem. I discussed with Dr. Preciado, and he recommends continuing Meropenem for 2 weeks. 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 Adjust as needed * CKD- will re-check his lab work
[2018-02-22] MEDS: Mirtazapine 15 MG TAB PO SCH (21:20)
[2018-02-22] MEDS: Famotidine 20 MG TAB PO SCH (21:20)
[2018-02-23] MEDS: Ferrous Sulfate 325 MG TAB PO SCH ×2 (08:25→17:13)
[2018-02-23] MEDS: Potassium Chloride 20 MEQ TAB PO SCH ×2 (08:26→17:13)
[2018-02-23] MEDS: Bicalutamide 50 MG TAB PO SCH (08:26)
[2018-02-23] MEDS: Folic Acid 1 MG TAB PO SCH (08:26)
[2018-02-23] MEDS: Lisinopril 5 MG TAB PO SCH (08:26)
[2018-02-23] MEDS: MEROPENEM 1 GM/50 ML 1 GM in Premix Bag 1 BAG IVPB SCH ×2 (08:27→22:15)
[2018-02-23] MEDS: Tamsulosin HCl 0.4 MG CAP PO SCH (08:27)
[2018-02-23] MEDS: Metoprolol Tartrate 25 MG TAB PO SCH (08:27)
[2018-02-23] MEDS: Sodium Chloride 0.9% 1,000 ML IV SCH (08:43)
--- NOTE | 2018-02-23 10:10 | PDOC.PN ---
- Subjective Encounter Start Date: 02/23/18 Encounter Start Time: 08:45 Subjective: awakens easily, has not eaten breakfast yet -: no sob or pain, responds to verbal questions -: moves all extremities - Objective Resuscitation Status: Resuscitation Status FULL:Full Resuscitation MAR Reviewed: Yes Vital Signs & Weight: Vital Signs (12 hours) Temp Pulse Resp BP BP BP Pulse Ox 02/23/18 08:30 157/87 H 02/23/18 08:26 87 163/95 H 02/23/18 08:00 97.4 F L 87 18 163/95 H 97 02/23/18 00:36 148/68 H Weight Weight 131 lb 3.2 oz I&O: 02/22/18 02/23/18 02/24/18 06:59 06:59 06:59 Intake Total 2350 1740 Output Total 3250 810 Balance -900 930 Result Diagrams: 02/16/18 04:42 02/17/18 04:04 Phys Exam - Physical Examination HEENT: PERRLA, moist MMs Neck: no JVD, supple Respiratory: no wheezing, no rales Cardiovascular: RRR, no significant murmur Gastrointestinal: soft, non-tender, positive bowel sounds nephrostomy tubes b/l, spc+ Musculoskeletal: no edema, pulses present Neurological: non-focal, moves all 4 limbs Psychiatric: normal affect, A&O x 3 Dx/Plan (1) UTI (urinary tract infection) Status: Acute Qualifiers: Urinary tract infection type: catheter-associated UTI Comment: obstructive uropathy, s/p b/l nephrostomy tubes in addition to spc+ (2) Prostate cancer metastatic to multiple sites Code(s): C61 - MALIGNANT NEOPLASM OF PROSTATE Status: Chronic (3) COPD (chronic obstructive pulmonary disease) Status: Chronic Qualifiers: COPD type: chronic bronchitis (4) Chronic diastolic (congestive) heart failure Code(s): I50.32 - CHRONIC DIASTOLIC (CONGESTIVE) HEART FAILURE Status: Chronic (5) Dementia Code(s): F03.90 - UNSPECIFIED DEMENTIA WITHOUT BEHAVIORAL DISTURBANCE Status: Chronic Qualifiers: Dementia type: unspecified type Dementia behavioral disturbance: without behavioral disturbance Qualified Code(s): F03.90 - Unspecified dementia without behavioral disturbance (6) H/O: CVA (cerebrovascular accident) Code(s): Z86.73 - PRSNL HX OF TIA (TIA), AND CEREB INFRC W/O RESID DEFICITS Status: Chronic (7) HTN (hypertension) Code(s): I10 - ESSENTIAL (PRIMARY) HYPERTENSION Status: Chronic Qualifiers: Hypertension type: essential hypertension Comment: (8) History of suprapubic catheter Code(s): Z98.890 - OTHER SPECIFIED POSTPROCEDURAL STATES Status: Chronic - Plan is on meropenem, needs picc line for 2 weeks merrem -: neprostomy tubes are draining well, right nephrostomy tube is draining more -: encourage po intake -: continue casodex, flomax, lisinopril and lopressor * . Review of Systems - Medications/Allergies Allergies/Adverse Reactions: Allergies Allergy/AdvReac Type Severity Reaction Status Date / Time acetaminophen Allergy Verified 04/17/17 17:47 [From Tylenol-Codeine #3] codeine Allergy Verified 04/17/17 17:47 [From Tylenol-Codeine #3] hydrocodone Allergy Verified 06/17/16 20:50 Medications: Current Medications Bicalutamide (Casodex) 50 mg PO DAILY [facility] Last Admin: 02/23/18 08:26 Dose: 50 mg Clonidine (Catapres) 0.1 mg PO Q4H PRN PRN Reason: Systolic BP > 180 Famotidine (Pepcid) 20 mg PO 2100 [facility] Last Admin: 02/22/18 21:20 Dose: 20 mg Ferrous Sulfate (Feosol) 325 mg PO BID-WM [facility] Last Admin: 02/23/18 08:25 Dose: 325 mg Folic Acid (Folvite) 1 mg PO DAILY [facility] Last Admin: 02/23/18 08:26 Dose: 1 mg Hydralazine HCl (Apresoline) 10 mg SLOW IVP Q4H PRN PRN Reason: Systolic BP > 180 Sodium Chloride (Normal Saline 0.9%) 1,000 mls @ 75 mls/hr IV .[id number] [facility] Last Admin: 02/23/18 08:43 Dose: 1,000 mls Meropenem 1 gm/ Device 50 mls @ 100 mls/hr IVPB 0900,2100 [facility] Last Admin: 02/23/18 08:27 Dose: 50 mls Lisinopril (Zestril) 5 mg PO DAILY [facility] Last Admin: 09/15/18 08:26 Dose: 5 mg Metoprolol Tartrate (Lopressor) 25 mg PO DAILY [facility] Last Admin: 02/23/18 08:27 Dose: 25 mg Mirtazapine (Remeron) [address] [facility] Last Admin: 02/22/18 21:20 Dose: 15 mg Ondansetron HCl (Zofran Odt) 4 mg PO Q6H PRN PRN Reason: Nausea/Vomiting Ondansetron HCl (Zofran) 4 mg IVP Q6H PRN PRN Reason: Nausea/Vomiting Potassium Chloride (K-Dur) 40 meq PO BID-[facility] Last Admin: 02/23/18 08:26 Dose: 40 meq Tamsulosin HCl (Flomax) 0.4 mg PO DAILY [facility] Last Admin: 02/23/18 08:27 Dose: 0.4 mg
[2018-02-23 10:39] LABS: #Eosinphils 0.1 thou/uL (0.0-0.7); #Lymphocytes 1.1 thou/uL (1.20-3.40); #Monocytes 0.4 thou/uL (0.11-0.59); #Neutrophils 4.9 thou/uL (1.40-6.50); %Basophils 0.6 % (0.0-1.0); %Eosinophils 0.9 % (0.0-10.0); %Lymphocytes 16.2 % (21.0-51.0); %Monocytes 6.8 % (0.0-10.0); %Neutrophils 75.5 % (42.0-75.0); Hemoglobin 11.4 g/dL (14.0-18.0); Mean Corpuscular HGB CONC 31.2 g/dL (32.0-36.0); Mean Corpuscular Hemoglobin 28.7 pg (27.0-31.0); Mean Corpuscular Volume 91.9 fL (78.0-98.0); Mean Platelet Volume 7.3 fL (7.4-10.4); Platelet Count 314 thou/uL (130-400); RBC Distribution Width 14.4 % (11.5-14.5); Red Blood Cell (RBC) Count 3.97 mill/uL (4.70-6.10); White Blood Cell (WBC) Count 6.5 thou/uL (4.8-10.8)
[2018-02-23 11:10] LABS: Anion Gap 11 mmol/L (10-20); BUN (Urea Nitrogen) 17 mg/dL (8.4-25.7); Calc. Creatinine Clearance 39 mL/min (70-130); Calcium 8.8 mg/dL (7.8-10.44); Carbon Dioxide 20 mmol/L (23-31); Chloride 111 mmol/L (98-107); Estimated GFR-MDRD 74; Glucose 85 mg/dL (83-110); Potassium 4.9 mmol/L (3.5-5.1); Sodium 137 mmol/L (136-145)
[2018-02-23] MEDS: Famotidine 20 MG TAB PO SCH (22:15)
[2018-02-23] MEDS: Mirtazapine 15 MG TAB PO SCH (22:15)
[2018-02-24] MEDS: Ferrous Sulfate 325 MG TAB PO SCH ×2 (08:49→17:36)
[2018-02-24] MEDS: Folic Acid 1 MG TAB PO SCH (08:50)
[2018-02-24] MEDS: Bicalutamide 50 MG TAB PO SCH (08:50)
[2018-02-24] MEDS: Potassium Chloride 20 MEQ TAB PO SCH ×2 (08:50→17:37)
[2018-02-24] MEDS: Lisinopril 5 MG TAB PO SCH (08:50)
[2018-02-24] MEDS: Tamsulosin HCl 0.4 MG CAP PO SCH (08:50)
[2018-02-24] MEDS: Metoprolol Tartrate 25 MG TAB PO SCH (08:52)
[2018-02-24] MEDS: MEROPENEM 1 GM/50 ML 1 GM in Premix Bag 1 BAG IVPB SCH ×2 (08:52→21:52)
--- NOTE | 2018-02-24 11:06 | PDOC.PN ---
- Subjective Encounter Start Date: 02/24/18 Encounter Start Time: 10:20 Subjective: awakens easily, not in distress -: no sob - Objective Resuscitation Status: Resuscitation Status FULL:Full Resuscitation MAR Reviewed: Yes Vital Signs & Weight: Vital Signs (12 hours) Temp Pulse Resp BP BP Pulse Ox 02/24/18 08:50 65 152/80 H 02/24/18 08:00 97.8 F 65 18 152/80 H 100 Weight Weight 131 lb 3.2 oz I&O: 02/23/18 02/24/18 02/25/18 06:59 06:59 06:59 Intake Total 1740 1380 240 Output Total 810 4250 Balance 930 -2870 240 Result Diagrams: 02/23/18 10:26 02/23/18 10:26 Phys Exam - Physical Examination HEENT: PERRLA, moist MMs Neck: no JVD, supple Respiratory: no wheezing, no rales Cardiovascular: RRR, no significant murmur Gastrointestinal: soft, no distention, positive bowel sounds b/l nephrostomy tubes are draining urine Musculoskeletal: no edema, pulses present Neurological: non-focal, moves all 4 limbs Dx/Plan (1) UTI (urinary tract infection) Status: Acute Qualifiers: Urinary tract infection type: catheter-associated UTI Comment: obstructive uropathy, s/p b/l nephrostomy tubes in addition to spc+ (2) Prostate cancer metastatic to multiple sites Code(s): C61 - MALIGNANT NEOPLASM OF PROSTATE Status: Chronic (3) COPD (chronic obstructive pulmonary disease) Status: Chronic Qualifiers: COPD type: chronic bronchitis (4) Chronic diastolic (congestive) heart failure Code(s): I50.32 - CHRONIC DIASTOLIC (CONGESTIVE) HEART FAILURE Status: Chronic (5) Dementia Code(s): F03.90 - UNSPECIFIED DEMENTIA WITHOUT BEHAVIORAL DISTURBANCE Status: Chronic Qualifiers: Dementia type: unspecified type Dementia behavioral disturbance: without behavioral disturbance Qualified Code(s): F03.90 - Unspecified dementia without behavioral disturbance (6) H/O: CVA (cerebrovascular accident) Code(s): Z86.73 - PRSNL HX OF TIA (TIA), AND CEREB INFRC W/O RESID DEFICITS Status: Chronic (7) HTN (hypertension) Code(s): I10 - ESSENTIAL (PRIMARY) HYPERTENSION Status: Chronic Qualifiers: Hypertension type: essential hypertension Comment: (8) History of suprapubic catheter Code(s): Z98.890 - OTHER SPECIFIED POSTPROCEDURAL STATES Status: Chronic - Plan CM for help with setting up meropenem x 13 days, not sure if invanz daily i -: -is ok with . Prefer pt going to swing bed with nephrostomy tubes -: Needs PICC line, likely will be done Sunday -: continue casodex, flomax, iron, lisinopril and lopressor -: PT to mobilize as tolerated * . Review of Systems - Medications/Allergies Allergies/Adverse Reactions: Allergies Allergy/AdvReac Type Severity Reaction Status Date / Time acetaminophen Allergy Verified 04/17/17 17:47 [From Tylenol-Codeine #3] codeine Allergy Verified 04/17/17 17:47 [From Tylenol-Codeine #3] hydrocodone Allergy Verified 06/17/16 20:50 Medications: Current Medications Bicalutamide (Casodex) 50 mg PO DAILY [facility] Last Admin: 02/24/18 08:50 Dose: 50 mg Clonidine (Catapres) 0.1 mg PO Q4H PRN PRN Reason: Systolic BP > 180 Famotidine (Pepcid) 20 mg PO 2099 [facility] Last Admin: 02/23/18 22:15 Dose: 20 mg Ferrous Sulfate (Feosol) 325 mg PO BID-[facility] Last Admin: 02/24/18 08:49 Dose: 325 mg Folic Acid (Folvite) 1 mg PO DAILY [facility] Last Admin: 02/24/18 08:50 Dose: 1 mg Hydralazine HCl (Apresoline) 10 mg SLOW IVP Q4H PRN PRN Reason: Systolic BP > 180 Meropenem 1 gm/ Device 50 mls @ 100 mls/hr IVPB 0900,2100 [facility] Last Admin: 02/24/18 08:52 Dose: 50 mls Lisinopril (Zestril) 5 mg PO DAILY [facility] Last Admin: 02/24/18 08:50 Dose: 5 mg Metoprolol Tartrate (Lopressor) 25 mg PO DAILY [facility] Last Admin: 02/24/18 08:52 Dose: 25 mg Mirtazapine (Remeron) 15 mg PO HS [facility] Last Admin: 02/23/18 22:15 Dose: 15 mg Ondansetron HCl (Zofran Odt) 4 mg PO Q6H PRN PRN Reason: Nausea/Vomiting Ondansetron HCl (Zofran) 4 mg IVP Q6H PRN PRN Reason: Nausea/Vomiting Potassium Chloride (K-Dur) 40 meq PO BID-[facility] Last Admin: 02/24/18 08:50 Dose: 40 meq Tamsulosin HCl (Flomax) 0.4 mg PO DAILY [facility] Last Admin: 02/24/18 08:50 Dose: 0.4 mg
[2018-02-24] MEDS: Mirtazapine 15 MG TAB PO SCH (21:52)
[2018-02-24] MEDS: Famotidine 20 MG TAB PO SCH (21:52)
[2018-02-25 05:17] LABS: #Lymphocytes 1.1 thou/uL (1.20-3.40); #Monocytes 0.6 thou/uL (0.11-0.59); %Basophils 0.2 % (0.0-1.0); %Eosinophils 0.6 % (0.0-10.0); %Lymphocytes 15.9 % (21.0-51.0); %Monocytes 8.5 % (0.0-10.0); %Neutrophils 74.8 % (42.0-75.0); Hemoglobin 11.1 g/dL (14.0-18.0); Mean Corpuscular HGB CONC 32.3 g/dL (32.0-36.0); Mean Corpuscular Hemoglobin 29.8 pg (27.0-31.0); Mean Corpuscular Volume 92.2 fL (78.0-98.0); Mean Platelet Volume 7.5 fL (7.4-10.4); Platelet Count 385 thou/uL (130-400); RBC Distribution Width 14.5 % (11.5-14.5); Red Blood Cell (RBC) Count 3.73 mill/uL (4.70-6.10); White Blood Cell (WBC) Count 6.7 thou/uL (4.8-10.8)
[2018-02-25 05:56] LABS: Anion Gap 15 mmol/L (10-20); BUN (Urea Nitrogen) 22 mg/dL (8.4-25.7); Calc. Creatinine Clearance 38 mL/min (70-130); Calcium 9.1 mg/dL (7.8-10.44); Carbon Dioxide 19 mmol/L (23-31); Chloride 109 mmol/L (98-107); Estimated GFR-MDRD 71; Glucose 64 mg/dL (83-110); Potassium 5.8 mmol/L (3.5-5.1); Sodium 137 mmol/L (136-145)
[2018-02-25] MEDS: MEROPENEM 1 GM/50 ML 1 GM in Premix Bag 1 BAG IVPB SCH ×2 (09:48→21:54)
[2018-02-25] MEDS: Bicalutamide 50 MG TAB PO SCH (09:51)
[2018-02-25] MEDS: Metoprolol Tartrate 25 MG TAB PO SCH (09:52)
[2018-02-25] MEDS: Ferrous Sulfate 325 MG TAB PO SCH ×2 (09:52→17:45)
[2018-02-25] MEDS: Tamsulosin HCl 0.4 MG CAP PO SCH (09:52)
[2018-02-25] MEDS: Potassium Chloride 20 MEQ TAB PO SCH ×2 (09:52→09:55)
[2018-02-25] MEDS: Folic Acid 1 MG TAB PO SCH (09:53)
[2018-02-25] MEDS: Lisinopril 5 MG TAB PO SCH (09:53)
--- NOTE | 2018-02-25 10:08 | PDOC.PN ---
- Subjective Encounter Start Date: 02/25/18 Encounter Start Time: 10:07 -: old records requested/rev Pt seen and examined, chart reviewed in its entirety, this si my first visit with this patient. follow up for onstructive uropathy due to Prostate CA, known mets, complicated UTI with MDR organism. referral made to [facility] of IV antibiotics, awaiting insurance approval, expect 2-3 days until approved. No F/C, no N/V/d/cv, no CP or sOB All systems reviewed and neg x as above - Objective Resuscitation Status: Resuscitation Status FULL:Full Resuscitation MAR Reviewed: Yes Vital Signs & Weight: Vital Signs (12 hours) Temp Pulse Resp BP BP Pulse Ox 02/25/18 09:53 83 135/93 H 02/25/18 08:00 97.7 F 95 16 135/93 H 100 Weight Weight 131 lb 3.2 oz I&O: 02/24/18 02/25/18 02/26/18 06:59 06:59 06:59 Intake Total 1380 860 Output Total 4250 2605 Balance -7550 -0115 Result Diagrams: 02/25/18 04:47 02/25/18 04:47 Radiology Reviewed by me: Yes EKG Reviewed by me: Yes Phys Exam - Physical Examination Constitutional: NAD HEENT: PERRLA, moist MMs, sclera anicteric, oral pharynx no lesions Neck: no nodes, no JVD, supple, full ROM Respiratory: no wheezing, no rales, no rhonchi, clear to auscultation bilateral Cardiovascular: RRR, no significant murmur, no rub Gastrointestinal: soft, non-tender, no distention, positive bowel sounds Musculoskeletal: edema present Neurological: non-focal, normal sensation, moves all 4 limbs Lymphatic: no nodes Psychiatric: normal affect, A&O x 3 Skin: no rash, normal turgor, cap refill <2 seconds Dx/Plan (1) Metabolic encephalopathy Code(s): G93.41 - METABOLIC ENCEPHALOPATHY Status: Acute (2) UTI (urinary tract infection) Status: Acute Qualifiers: Urinary tract infection type: catheter-associated UTI Comment: obstructive uropathy, s/p b/l nephrostomy tubes in addition to spc+ Cx with GNR, ,5K CFU so no workup. appreciate ID input (3) Chronic kidney disease, stage 3 (moderate) Code(s): N18.3 - CHRONIC KIDNEY DISEASE, STAGE 3 (MODERATE) Status: Chronic (4) Prostate cancer metastatic to multiple sites Code(s): C61 - MALIGNANT NEOPLASM OF PROSTATE Status: Chronic (5) COPD (chronic obstructive pulmonary disease) Status: Chronic Qualifiers: COPD type: chronic bronchitis (6) Chronic diastolic (congestive) heart failure Code(s): I50.32 - CHRONIC DIASTOLIC (CONGESTIVE) HEART FAILURE Status: Chronic (7) Dementia Code(s): F03.90 - UNSPECIFIED DEMENTIA WITHOUT BEHAVIORAL DISTURBANCE Status: Chronic Qualifiers: Dementia type: unspecified type Dementia behavioral disturbance: without behavioral disturbance Qualified Code(s): F03.90 - Unspecified dementia without behavioral disturbance (8) H/O: CVA (cerebrovascular accident) Code(s): Z86.73 - PRSNL HX OF TIA (TIA), AND CEREB INFRC W/O RESID DEFICITS Status: Chronic (9) Paroxysmal a-fib Code(s): I48.0 - PAROXYSMAL ATRIAL FIBRILLATION Status: Chronic (10) Protein-calorie malnutrition, moderate Code(s): E44.0 - MODERATE PROTEIN-CALORIE MALNUTRITION Status: Chronic - Plan * .
--- NOTE | 2018-02-25 17:12 | SPC ---
ULTRASOUND GUIDED RIGHT UPPER EXTREMITY PICC LINE PLACEMENT: Date: 02/25/18 HISTORY: Urinary tract infection. Needs long-term antibiotics. TECHNIQUE: After informed consent was obtained, the right upper extremity was meticulously prepped and draped in the usual sterile fashion. An appropriate access site was determined with ultrasound guidance. The r ight brachial vein was accessed utilizing micropuncture technique and concurrent real-time ultrasound guidance. A 5 [place] peel-away sheath was placed. The catheter was measured and cut to the appropria te length. The catheter was placed over the guidewire with the tip positioned overlying the cavoatria l junction. Each port on the double lumen PICC line was aspirated/flushed easily. The catheter was se cured to the skin utilizing a StatLock device, and a dry, sterile dressing was placed. Positioning of the tip of the catheter was confirmed with a portable chest x-ray. FINDINGS: Technically successful placement of a dual lumen 5 [place] 45 cm PICC line via the right brachial vein . The tip of the catheter overlies the cavoatrial junction. IMPRESSION: Technically successful right upper extremity PICC line placement. POS: [facility]
[2018-02-25] MEDS ORDERED: Heparin 1,000 UNITS/ML VIAL ONE (17:52)
--- NOTE | 2018-02-25 18:43 | PRG ---
DATE OF SERVICE: 02/25/2018 SUBJECTIVE: Patient is still not answering questions appropriately. He is confused and altered. He just generally mumbles and does not seem to answer questions appropriately. Nursing staff has alert ed me that the patient's suprapubic tube is not really putting out much fluid. His right nephrostomy tube has been draining clear yellow urine with a left nephrostomy tube appears to have a minimal becky unt of extremely dark bloody fluid and has not really put out anything. OBJECTIVE: VITAL SIGNS: Temperature 97.7, pulse 83, respirations 16, blood pressure 135/93, saturation 100% on room air. GENERAL: No apparent distress, rambles incoherently and does not really make sense. He is not answe ring questions appropriately. CARDIOVASCULAR: Regular rate and rhythm. BACK: Both nephrostomy tubes appear to be in place with little to no output on the left. Clear yell ow urine on the right. SP tube is to gravity drainage with minimal amounts of fluid in the bag. LABORATORY DATA: On laboratory evaluation, the white count is 6.7 with a hemoglobin of 11.1, creatin ine is currently 1.18 with a potassium of 5.8. ASSESSMENT AND PLAN: An 87-year-old black male with bilateral ureteral obstruction secondary to meta static and advanced prostate cancer, currently on bicalutamide monotherapy. It is concerning that hi s left nephrostomy tube is not draining. I would recommend that we have him undergo a nephrostogram and drain study to see if the nephrostomy tube has gotten pulled out of position where it is still wi thin the kidney. If it is within the kidney, it may need to be irrigated and flushed to allow for pr oper drainage or have the entire nephrostomy tube changed out. Once both nephrostomy tubes are drain ing properly, it would be normal to expect minimal to no output from the suprapubic tube, but for now , I would keep all three catheters. We will obtain arrange for a drain study tomorrow. I will yakelin divyae to follow along and make recommendations. He should continue bicalutamide monotherapy until he c an be discharged at which time, we will switch him over to Lupron.
[2018-02-25] MEDS: Famotidine 20 MG TAB PO SCH (21:54)
[2018-02-25] MEDS: Mirtazapine 15 MG TAB PO SCH (21:54)
[2018-02-26 07:21] LABS: Anion Gap 12 mmol/L (10-20); BUN (Urea Nitrogen) 22 mg/dL (8.4-25.7); Calc. Creatinine Clearance 37 mL/min (70-130); Carbon Dioxide 20 mmol/L (23-31); Chloride 108 mmol/L (98-107); Estimated GFR-MDRD 68; Sodium 135 mmol/L (136-145)
[2018-02-26 07:26] LABS: Glucose 55 mg/dL (83-110)
[2018-02-26] MEDS: Lisinopril 5 MG TAB PO SCH (10:01)
[2018-02-26] MEDS: Folic Acid 1 MG TAB PO SCH (10:01)
[2018-02-26] MEDS: Ferrous Sulfate 325 MG TAB PO SCH ×2 (10:01→18:19)
[2018-02-26] MEDS: Metoprolol Tartrate 25 MG TAB PO SCH (10:01)
[2018-02-26] MEDS: Tamsulosin HCl 0.4 MG CAP PO SCH (10:02)
[2018-02-26] MEDS: Bicalutamide 50 MG TAB PO SCH (10:02)
[2018-02-26] MEDS: MEROPENEM 1 GM/50 ML 1 GM in Premix Bag 1 BAG IVPB SCH ×2 (10:02→20:55)
--- NOTE | 2018-02-26 17:05 | CT ---
CT OF THE ABDOMEN AND PELVIS WITHOUT IV CONTRAST 02/26/18 INDICATION: Evaluate recently placed nephrostomy tube. COMPARISON: Prior exam dated 02/18/18. FINDINGS: The prominent pericardial effusion and moderate bilateral pleural effusions persist. Numerous hypodensities are seen involving the liver suspicious for metastatic disease. Bilateral percutaneous nephrostomy tubes are projecting in the expected position. Both are seen withi n the region of the distal renal pelves. The right renal collecting system appears decompressed. The left renal collecting system appears to be prominent. There is now hyperdense material seen within th e distal aspect of the left ureter suspicious for hemorrhage. Prominent bilateral renal cysts are sim ilar appearing. Suprapubic catheter in place within a decompressed bladder. There is prominent amount of retained stool within the colon and rectum. Small bowel is of normal casey iber. There is scattered vascular calcifications. There is prominent anasarca. Irregular sclerotic lesions of the right ischial tuberosity, pubic bodies and left superior pubic mayank us appear similar suspicious for metastatic disease. Diffuse osteopenia is similar appearing. IMPRESSION: 1. Percutaneous nephrostomy tubes appear to be in the expected position; however, the left renal collecting system remains severely hydronephrotic. Right renal collecting system appears decompresse d from the most recent comparison dated 02/18/18. 2. Stable findings of diffuse metastatic disease. 3. Stable findings of pleural effusions, pericardial effusion, and anasarca. 4. Suprapubic catheter. 5. Prominent amount of retained stool within the colon. POS: [facility]
--- NOTE | 2018-02-26 18:21 | CT ---
CT GUIDED MANIPULATION OF LEFT SIDED NEPHROSTOMY TUBE 02/26/18 INDICATION: Poor drainage from the left sided nephrostomy tube. TECHNIQUE/FINDINGS: The patient was placed in a oblique supine positioning on the CT gantry and a CT fluoroscopic examina tion was performed for manipulation of the left sided nephrostomy tube. The suture was removed fixating the catheter to the skin. The catheter was slightly withdrawn approxi mately 2 cm to the level of the expected region of the left renal pelvis. The catheter xochilt out appro ximately 100 mL of blood tinged urine. When compared to the CT examination performed prior to this pr ocedure at 3:30 p.m., there is significant reduction in the left renal collecting system. The left re nal collecting system is decompressed on the preprocedure CT images. 50% diluted Omnipaque contrast was then instilled into the collecting system and demonstrated the catheter was patent and positioned within the left renal collecting system. The contrast was then removed. A delayed examination was pe rformed demonstrating contrast extending down the left ureter and some residual contrast remaining wi thin the left renal pelvis. The catheter was then fixated to the skin only with a percustat device. IMPRESSION: Patent left sided nephrostomy tube. The nephrostomy tube is in good position within the lower left re nal pelvis. Contrast is seen to flow freely within the left renal pelvis indicative of positioning of the catheter within the renal collecting system. The left renal collecting system is markedly decomp ressed from the comparison CT performed earlier at 3:30 p.m. The catheter was likely clogged from blo od clot from the hematuria. We will recommend that this patient undergo serial flushing every four ho urs with 10 mL toward the patient and 10 mL away from the patient. The findings were called to Dr. Symone riley and Dr. Evans at 5 p.m. on 02/26/18. Code CR POS: [facility]
--- NOTE | 2018-02-26 19:26 | PRG ---
DATE OF SERVICE: 02/26/2018 SUBJECTIVE: The patient again does not answer questions appropriately. Appears confused in bed. He did go down for a drain study in which case they found that the nephrostomy tube was clogged. Upon irrigation, the nephrostomy tube started draining again and the radiologist recommended continuous fl ushes to the nephrostomy tube. OBJECTIVE: VITAL SIGNS: Temperature 97.5, pulse 70, respirations 16, blood pressure 160/78, saturation 98% on r oom air. GENERAL: No apparent distress, not answering questions appropriately, but appears pleasant. ABDOMEN: Soft, nontender, nondistended. BACK: Nephrostomy tubes in place, draining clear urine on the right and somewhat bloody urine on the left. GENITOURINARY: SP tube in place, draining clear yellow urine. LABORATORY DATA: White count of 6.7 with a hemoglobin of 11.1, creatinine is currently 1.22. ASSESSMENT AND PLAN: An 87-year-old black male with metastatic prostate cancer and bilateral uretera l obstruction from prostate cancer, currently on bicalutamide monotherapy. His nephrostomy tube seem s to be draining better now after the flushing and we will continue flushes on the left nephrostomy t ube to avoid reclotting. At this point, I do not think anything further needs to be done from my sta ndpoint. The patient's long-term prognosis remains quite poor. Ultimately, the patient may benefit from either bilateral orchiectomy or continuation of Lupron therapy as an outpatient. For now, we wi ll just have the patient follow up with me as an outpatient and keep his nephrostomy tubes and SP tub e in place. I will sign off for the time being. Please reconsult if there are any other questions.
[2018-02-26] MEDS: Famotidine 20 MG TAB PO SCH (20:55)
[2018-02-26] MEDS: Mirtazapine 15 MG TAB PO SCH (20:56)
[2018-02-27 04:59] LABS: Anion Gap 11 mmol/L (10-20); BUN (Urea Nitrogen) 22 mg/dL (8.4-25.7); Calc. Creatinine Clearance 38 mL/min (70-130); Calcium 8.8 mg/dL (7.8-10.44); Carbon Dioxide 21 mmol/L (23-31); Chloride 105 mmol/L (98-107); Estimated GFR-MDRD 71; Glucose 68 mg/dL (83-110); Potassium 4.4 mmol/L (3.5-5.1); Sodium 133 mmol/L (136-145)
[2018-02-27 05:07] LABS: #Eosinphils 0.1 thou/uL (0.0-0.7); #Lymphocytes 1.2 thou/uL (1.20-3.40); #Monocytes 0.6 thou/uL (0.11-0.59); #Neutrophils 4.6 thou/uL (1.40-6.50); %Basophils 0.1 % (0.0-1.0); %Eosinophils 1.8 % (0.0-10.0); %Lymphocytes 18.3 % (21.0-51.0); %Monocytes 9.2 % (0.0-10.0); %Neutrophils 70.5 % (42.0-75.0); Hemoglobin 12.1 g/dL (14.0-18.0); Mean Corpuscular HGB CONC 31.8 g/dL (32.0-36.0); Mean Corpuscular Hemoglobin 29.2 pg (27.0-31.0); Mean Corpuscular Volume 91.8 fL (78.0-98.0); Mean Platelet Volume 8.3 fL (7.4-10.4); Platelet Count 329 thou/uL (130-400); RBC Distribution Width 14.6 % (11.5-14.5); Red Blood Cell (RBC) Count 4.13 mill/uL (4.70-6.10); White Blood Cell (WBC) Count 6.6 thou/uL (4.8-10.8)
[2018-02-27] MEDS: Ferrous Sulfate 325 MG TAB PO SCH ×2 (09:29→17:54)
[2018-02-27] MEDS: MEROPENEM 1 GM/50 ML 1 GM in Premix Bag 1 BAG IVPB SCH ×2 (09:30→21:09)
[2018-02-27] MEDS: Lisinopril 5 MG TAB PO SCH (09:30)
[2018-02-27] MEDS: Bicalutamide 50 MG TAB PO SCH (09:30)
[2018-02-27] MEDS: Folic Acid 1 MG TAB PO SCH (09:30)
[2018-02-27] MEDS: Metoprolol Tartrate 25 MG TAB PO SCH (09:30)
[2018-02-27] MEDS: Tamsulosin HCl 0.4 MG CAP PO SCH (09:30)
[2018-02-27] MEDS: Mirtazapine 15 MG TAB PO SCH (21:09)
[2018-02-27] MEDS: Famotidine 20 MG TAB PO SCH (21:09)
[2018-02-28] MEDS: Tamsulosin HCl 0.4 MG CAP PO SCH (10:11)
[2018-02-28] MEDS: Metoprolol Tartrate 25 MG TAB PO SCH (10:11)
[2018-02-28] MEDS: Ferrous Sulfate 325 MG TAB PO SCH ×2 (10:11→17:25)
[2018-02-28] MEDS: Lisinopril 5 MG TAB PO SCH (10:11)
[2018-02-28] MEDS: Folic Acid 1 MG TAB PO SCH (10:11)
[2018-02-28] MEDS: Bicalutamide 50 MG TAB PO SCH (10:12)
[2018-02-28] MEDS: MEROPENEM 1 GM/50 ML 1 GM in Premix Bag 1 BAG IVPB SCH ×2 (10:12→21:21)
[2018-02-28] MEDS: Famotidine 20 MG TAB PO SCH (21:20)
[2018-02-28] MEDS: Mirtazapine 15 MG TAB PO SCH (21:20)
[2018-03-01] MEDS: Lisinopril 5 MG TAB PO SCH (09:30)
[2018-03-01] MEDS: Folic Acid 1 MG TAB PO SCH (09:31)
[2018-03-01] MEDS: Tamsulosin HCl 0.4 MG CAP PO SCH (09:31)
[2018-03-01] MEDS: Ferrous Sulfate 325 MG TAB PO SCH ×2 (09:31→17:17)
[2018-03-01] MEDS: Bicalutamide 50 MG TAB PO SCH (09:31)
[2018-03-01] MEDS: Metoprolol Tartrate 25 MG TAB PO SCH (09:31)
[2018-03-01] MEDS: MEROPENEM 1 GM/50 ML 1 GM in Premix Bag 1 BAG IVPB SCH ×3 (09:31→19:49)
[2018-03-01] MEDS ORDERED: Heparin 10,000 UNITS/ 10 ML VIAL ONE (16:35)
--- NOTE | 2018-03-01 16:52 | SPC ---
RIGHT UPPER EXTREMITY PICC LINE PLACEMENT WITH ULTRASOUND GUIDANCE 03/01/18 HISTORY: Infection. IV antibiotics required. COMPARISON: 02/25/18. EXPOSURE: 9.8 minutes. 06621 mGy*cm2. FINDINGS: Successful right upper extremity PICC line placement. The distal tip is in the right subclavian vein. Trim length is 29 cm. Both lumens flush and aspirate without difficulty. TECHNIQUE: Consent obtained for a right upper extremity PICC line. Right arm was prepped and draped in the steri le fashion. 1% lidocaine, buffered with sodium bicarbonate used for local anesthesia. Under ultrasoun d guidance, micropuncture needle was used to cannulate the basilic vein. A 0.018 guide wire was advan gaby to the level of the superior vena cava. Tract was dilated. Dual lumen 5 Georgian catheter was advan gaby over the wire. The catheter would not extend beyond the subclavian vein. Catheter was subsequentl y pulled back and through one of the lumens, contrast was administered which opacified the right uppe r extremity venous system. During fluoroscopy, contrast did opacity the entire subclavian vein and golden perior vena cava. Despite multiple attempts, the catheter and wire could not be passed into the super ior vena cava. Therefore, the catheter was cut to a trim length of 29 cm and placed in the right subc lavian vein. Both lumens flushed and aspirated without difficulty. There were no immediate or postpro cedure complications. IMPRESSION: Successful right upper extremity PICC line placement via the basilic vein. Trim length is 29 cm. Both lumens flush and aspirate without difficulty. POS: CYNDI
[2018-03-01] MEDS: Famotidine 20 MG TAB PO SCH (19:49)
[2018-03-01] MEDS: Mirtazapine 15 MG TAB PO SCH (19:49)
[2018-03-02] MEDS: Folic Acid 1 MG TAB PO SCH (08:43)
[2018-03-02] MEDS: Metoprolol Tartrate 25 MG TAB PO SCH (08:44)
[2018-03-02] MEDS: Ferrous Sulfate 325 MG TAB PO SCH ×2 (08:44→16:03)
[2018-03-02] MEDS: Tamsulosin HCl 0.4 MG CAP PO SCH (08:44)
[2018-03-02] MEDS: Lisinopril 5 MG TAB PO SCH (08:46)
[2018-03-02] MEDS: Bicalutamide 50 MG TAB PO SCH (08:46)
[2018-03-02] MEDS ORDERED: Activase 2 MG VIAL CATH SCH (10:45)
[2018-03-02 12:12] VITALS: BMI 19.9
--- NOTE | 2018-03-02 12:17 | EKG ---
Test Reason : Blood Pressure : / mmHG Vent. Rate : 060 BPM Atrial Rate : 065 BPM P-R Int : 000 ms QRS Dur : 182 ms QT Int : 486 ms P-R-T Axes : 000 048 191 degrees QTc Int : 486 ms AV dual-paced rhythm with prolonged AV conduction Abnormal ECG Confirmed by MORIS GR ([id number]), content editor DANNY KING ([id number]) on 03/02/2018 12:17:12 PM Referred By: Confirmed By:MORIS GR
[2018-03-02] MEDS ORDERED: Furosemide 20 MG/2 ML VIAL SLOW IVP SCH (15:45)
[2018-03-02] MEDS: Famotidine 20 MG TAB PO SCH (21:03)
[2018-03-02] MEDS: Mirtazapine 15 MG TAB PO SCH (21:03)
[2018-03-03] MEDS: Furosemide 20 MG/2 ML VIAL SLOW IVP SCH ×2 (04:54→13:13)
[2018-03-03 05:09] LABS: Anion Gap 14 mmol/L (10-20); BUN (Urea Nitrogen) 25 mg/dL (8.4-25.7); Calc. Creatinine Clearance 41 mL/min (70-130); Calcium 8.8 mg/dL (7.8-10.44); Carbon Dioxide 23 mmol/L (23-31); Chloride 107 mmol/L (98-107); Estimated GFR-MDRD 78; Glucose 64 mg/dL (83-110); Magnesium 2.2 mg/dL (1.6-2.6); Potassium 4.5 mmol/L (3.5-5.1); Sodium 139 mmol/L (136-145)
[2018-03-03] MEDS: Lisinopril 5 MG TAB PO SCH (08:19)
[2018-03-03] MEDS: Ferrous Sulfate 325 MG TAB PO SCH ×2 (08:19→16:32)
[2018-03-03] MEDS: Folic Acid 1 MG TAB PO SCH (08:19)
[2018-03-03] MEDS: Tamsulosin HCl 0.4 MG CAP PO SCH (08:19)
[2018-03-03] MEDS: Metoprolol Tartrate 25 MG TAB PO SCH (08:20)
[2018-03-03] MEDS: Bicalutamide 50 MG TAB PO SCH (09:01)
--- NOTE | 2018-03-03 09:27 | PDOC.PN ---
- Subjective Encounter Start Date: 02/26/18 Encounter Start Time: 09:25 follow up for complicated UTI Dr Yeung has seen, evaluating nephrostomies. No F/c, no N/V/D/C, no acute events No acute events overnight All systems reviewed adn neg x as above Meropenem until 03/02 - Objective Resuscitation Status: Resuscitation Status DNR:Do Not Resuscitate MAR Reviewed: Yes Vital Signs & Weight: Vital Signs (12 hours) Temp Pulse Resp BP BP Pulse Ox 03/03/18 08:27 98.0 F 92 16 130/67 98 03/03/18 08:19 92 130/67 Weight Admit Weight 131 lb 3.2 oz Weight 131 lb 3.2 oz I&O: 03/02/18 03/03/18 03/04/18 06:59 06:59 06:59 Intake Total 900 360 Output Total 1500 2325 Balance -600 -8860 Result Diagrams: 02/27/18 04:05 03/03/18 04:01 Phys Exam - Physical Examination Constitutional: NAD HEENT: PERRLA, moist MMs, sclera anicteric, oral pharynx no lesions Neck: no nodes, no JVD, supple, full ROM Respiratory: no wheezing, no rales, no rhonchi, clear to auscultation bilateral Cardiovascular: RRR, no significant murmur, no rub Gastrointestinal: soft, non-tender, no distention, positive bowel sounds Musculoskeletal: edema present Neurological: non-focal, normal sensation, moves all 4 limbs Lymphatic: no nodes Psychiatric: normal affect, A&O x 3 Skin: no rash, normal turgor, cap refill <2 seconds Dx/Plan (1) Metabolic encephalopathy Code(s): G93.41 - METABOLIC ENCEPHALOPATHY Status: Acute (2) UTI (urinary tract infection) Status: Acute Qualifiers: Urinary tract infection type: catheter-associated UTI Comment: obstructive uropathy, s/p b/l nephrostomy tubes in addition to spc+ Cx with GNR, ,5K CFU so no workup. appreciate ID input (3) Chronic kidney disease, stage 3 (moderate) Code(s): N18.3 - CHRONIC KIDNEY DISEASE, STAGE 3 (MODERATE) Status: Chronic (4) Prostate cancer metastatic to multiple sites Code(s): C61 - MALIGNANT NEOPLASM OF PROSTATE Status: Chronic (5) COPD (chronic obstructive pulmonary disease) Status: Chronic Qualifiers: COPD type: chronic bronchitis (6) Chronic diastolic (congestive) heart failure Code(s): I50.32 - CHRONIC DIASTOLIC (CONGESTIVE) HEART FAILURE Status: Chronic (7) Dementia Code(s): F03.90 - UNSPECIFIED DEMENTIA WITHOUT BEHAVIORAL DISTURBANCE Status: Chronic Qualifiers: Dementia type: unspecified type Dementia behavioral disturbance: without behavioral disturbance Qualified Code(s): F03.90 - Unspecified dementia without behavioral disturbance (8) H/O: CVA (cerebrovascular accident) Code(s): Z86.73 - PRSNL HX OF TIA (TIA), AND CEREB INFRC W/O RESID DEFICITS Status: Chronic (9) Paroxysmal a-fib Code(s): I48.0 - PAROXYSMAL ATRIAL FIBRILLATION Status: Chronic (10) Protein-calorie malnutrition, moderate Code(s): E44.0 - MODERATE PROTEIN-CALORIE MALNUTRITION Status: Chronic - Plan cont current plan of care, continue antibiotics, PT/OT * . CCm, pending placement
--- NOTE | 2018-03-03 09:35 | PDOC.PN ---
- Subjective Encounter Start Date: 02/27/18 Encounter Start Time: 09:34 urology notes reviewed, left tube flushed, on CT was in the UPJ, pulled back. leonila abx well, glucose low this AM, pt not on insulin. betteroverall. No F/C, no N/V/d/C. pleasantly confused ROS performed, and neg for all systems as above, unsure of patient reliability - Objective Resuscitation Status: Resuscitation Status DNR:Do Not Resuscitate MAR Reviewed: Yes Vital Signs & Weight: Vital Signs (12 hours) Temp Pulse Resp BP BP Pulse Ox 03/03/18 08:27 98.0 F 92 16 130/67 98 03/03/18 08:19 92 130/67 Weight Admit Weight 131 lb 3.2 oz Weight 131 lb 3.2 oz I&O: 03/02/18 03/03/18 03/04/18 06:59 06:59 06:59 Intake Total 900 360 Output Total 1500 2325 Balance -600 -1965 Result Diagrams: 02/27/18 04:05 03/03/18 04:01 Phys Exam - Physical Examination Constitutional: NAD HEENT: PERRLA, moist MMs, sclera anicteric, oral pharynx no lesions Neck: no nodes, no JVD, supple, full ROM Respiratory: no wheezing, clear to auscultation bilateral Cardiovascular: RRR, no rub Gastrointestinal: soft, non-tender, no distention, positive bowel sounds tube sites c/D/I Musculoskeletal: edema present Neurological: non-focal, moves all 4 limbs Lymphatic: no nodes Psychiatric: normal affect Skin: no rash, normal turgor, cap refill <2 seconds Dx/Plan (1) Metabolic encephalopathy Code(s): G93.41 - METABOLIC ENCEPHALOPATHY Status: Acute (2) UTI (urinary tract infection) Status: Acute Qualifiers: Urinary tract infection type: catheter-associated UTI Comment: obstructive uropathy, s/p b/l nephrostomy tubes in addition to spc+ Cx with GNR, ,5K CFU so no workup. appreciate ID input, planning antibiotics until 03/02. pending placement (3) Chronic kidney disease, stage 3 (moderate) Code(s): N18.3 - CHRONIC KIDNEY DISEASE, STAGE 3 (MODERATE) Status: Chronic (4) Prostate cancer metastatic to multiple sites Code(s): C61 - MALIGNANT NEOPLASM OF PROSTATE Status: Chronic (5) COPD (chronic obstructive pulmonary disease) Status: Chronic Qualifiers: COPD type: chronic bronchitis (6) Chronic diastolic (congestive) heart failure Code(s): I50.32 - CHRONIC DIASTOLIC (CONGESTIVE) HEART FAILURE Status: Chronic (7) Dementia Code(s): F03.90 - UNSPECIFIED DEMENTIA WITHOUT BEHAVIORAL DISTURBANCE Status: Chronic Qualifiers: Dementia type: unspecified type Dementia behavioral disturbance: without behavioral disturbance Qualified Code(s): F03.90 - Unspecified dementia without behavioral disturbance (8) H/O: CVA (cerebrovascular accident) Code(s): Z86.73 - PRSNL HX OF TIA (TIA), AND CEREB INFRC W/O RESID DEFICITS Status: Chronic (9) Paroxysmal a-fib Code(s): I48.0 - PAROXYSMAL ATRIAL FIBRILLATION Status: Chronic (10) Protein-calorie malnutrition, moderate Code(s): E44.0 - MODERATE PROTEIN-CALORIE MALNUTRITION Status: Chronic - Plan cont current plan of care, continue antibiotics, PT/OT, licensed master social worker * .
--- NOTE | 2018-03-03 09:38 | PDOC.PN ---
- Subjective Encounter Start Date: 02/28/18 Encounter Start Time: 09:36 pt stable, no acute events. no n/V/d/C, no F/c, leonila abx Magnified pending approval, all others have refused pt pulled out PICC, new one to be placed all systems reviewed adn neg x as above pt still pleasantly confused - Objective Resuscitation Status: Resuscitation Status DNR:Do Not Resuscitate MAR Reviewed: Yes Vital Signs & Weight: Vital Signs (12 hours) Temp Pulse Resp BP BP Pulse Ox 03/03/18 08:27 98.0 F 92 16 130/67 98 03/03/18 08:19 92 130/67 Weight Admit Weight 131 lb 3.2 oz Weight 131 lb 3.2 oz I&O: 03/02/18 03/03/18 03/04/18 06:59 06:59 06:59 Intake Total 900 360 Output Total 1500 2325 Balance -600 -4310 Result Diagrams: 02/27/18 04:05 03/03/18 04:01 Phys Exam - Physical Examination Constitutional: NAD HEENT: PERRLA, moist MMs, sclera anicteric, oral pharynx no lesions Neck: no nodes, no JVD, supple, full ROM Respiratory: no wheezing, no rales, no rhonchi, clear to auscultation bilateral Cardiovascular: RRR, no significant murmur, no rub Gastrointestinal: soft, non-tender, no distention, positive bowel sounds Musculoskeletal: edema present Neurological: non-focal, normal sensation, moves all 4 limbs Lymphatic: no nodes Psychiatric: normal affect Skin: no rash, normal turgor, cap refill <2 seconds Dx/Plan (1) Metabolic encephalopathy Code(s): G93.41 - METABOLIC ENCEPHALOPATHY Status: Acute (2) UTI (urinary tract infection) Status: Acute Qualifiers: Urinary tract infection type: catheter-associated UTI Comment: obstructive uropathy, s/p b/l nephrostomy tubes in addition to spc+ Cx with GNR, ,5K CFU so no workup. appreciate ID input, planning antibiotics until 03/02. pending placement (3) Chronic kidney disease, stage 3 (moderate) Code(s): N18.3 - CHRONIC KIDNEY DISEASE, STAGE 3 (MODERATE) Status: Chronic (4) Prostate cancer metastatic to multiple sites Code(s): C61 - MALIGNANT NEOPLASM OF PROSTATE Status: Chronic (5) COPD (chronic obstructive pulmonary disease) Status: Chronic Qualifiers: COPD type: chronic bronchitis (6) Chronic diastolic (congestive) heart failure Code(s): I50.32 - CHRONIC DIASTOLIC (CONGESTIVE) HEART FAILURE Status: Chronic (7) Dementia Code(s): F03.90 - UNSPECIFIED DEMENTIA WITHOUT BEHAVIORAL DISTURBANCE Status: Chronic Qualifiers: Dementia type: unspecified type Dementia behavioral disturbance: without behavioral disturbance Qualified Code(s): F03.90 - Unspecified dementia without behavioral disturbance (8) H/O: CVA (cerebrovascular accident) Code(s): Z86.73 - PRSNL HX OF TIA (TIA), AND CEREB INFRC W/O RESID DEFICITS Status: Chronic (9) Paroxysmal a-fib Code(s): I48.0 - PAROXYSMAL ATRIAL FIBRILLATION Status: Chronic (10) Protein-calorie malnutrition, moderate Code(s): E44.0 - MODERATE PROTEIN-CALORIE MALNUTRITION Status: Chronic - Plan cont current plan of care, continue antibiotics, PT/OT, aids social worker * .
--- NOTE | 2018-03-03 09:41 | PDOC.PN ---
- Subjective Encounter Start Date: 03/01/18 Encounter Start Time: 09:38 PICC intact, no new events, no acute events overnight, no complaints Denies F/C, no n/v/d/c, no cough or sputum All systems reviewed and neg x as above. Abnx until tomorrow - Objective Resuscitation Status: Resuscitation Status DNR:Do Not Resuscitate MAR Reviewed: Yes Vital Signs & Weight: Vital Signs (12 hours) Temp Pulse Resp BP BP Pulse Ox 03/03/18 08:27 98.0 F 92 16 130/67 98 03/03/18 08:19 92 130/67 Weight Admit Weight 131 lb 3.2 oz Weight 131 lb 3.2 oz I&O: 03/02/18 03/03/18 03/04/18 06:59 06:59 06:59 Intake Total 900 360 Output Total 1500 2325 Balance -600 -1965 Result Diagrams: 02/27/18 04:05 03/03/18 04:01 Phys Exam - Physical Examination Constitutional: NAD HEENT: PERRLA, moist MMs, sclera anicteric, oral pharynx no lesions Neck: no nodes, no JVD, supple, full ROM Respiratory: no wheezing, clear to auscultation bilateral Cardiovascular: RRR, no significant murmur Gastrointestinal: soft, non-tender, no distention, positive bowel sounds Musculoskeletal: edema present Neurological: non-focal, normal sensation, moves all 4 limbs Lymphatic: no nodes Psychiatric: normal affect Skin: cap refill <2 seconds Deviation from normal: PICC C/D/I Dx/Plan (1) Metabolic encephalopathy Code(s): G93.41 - METABOLIC ENCEPHALOPATHY Status: Acute (2) UTI (urinary tract infection) Status: Acute Qualifiers: Urinary tract infection type: catheter-associated UTI Comment: obstructive uropathy, s/p b/l nephrostomy tubes in addition to spc+ Cx with GNR, ,5K CFU so no workup. appreciate ID input, planning antibiotics until 03/02. pending placement (3) Chronic kidney disease, stage 3 (moderate) Code(s): N18.3 - CHRONIC KIDNEY DISEASE, STAGE 3 (MODERATE) Status: Chronic (4) Prostate cancer metastatic to multiple sites Code(s): C61 - MALIGNANT NEOPLASM OF PROSTATE Status: Chronic (5) COPD (chronic obstructive pulmonary disease) Status: Chronic Qualifiers: COPD type: chronic bronchitis (6) Chronic diastolic (congestive) heart failure Code(s): I50.32 - CHRONIC DIASTOLIC (CONGESTIVE) HEART FAILURE Status: Chronic (7) Dementia Code(s): F03.90 - UNSPECIFIED DEMENTIA WITHOUT BEHAVIORAL DISTURBANCE Status: Chronic Qualifiers: Dementia type: unspecified type Dementia behavioral disturbance: without behavioral disturbance Qualified Code(s): F03.90 - Unspecified dementia without behavioral disturbance (8) H/O: CVA (cerebrovascular accident) Code(s): Z86.73 - PRSNL HX OF TIA (TIA), AND CEREB INFRC W/O RESID DEFICITS Status: Chronic (9) Paroxysmal a-fib Code(s): I48.0 - PAROXYSMAL ATRIAL FIBRILLATION Status: Chronic (10) Protein-calorie malnutrition, moderate Code(s): E44.0 - MODERATE PROTEIN-CALORIE MALNUTRITION Status: Chronic - Plan cont current plan of care, continue antibiotics, PT/OT, criminal justice social worker * .
--- NOTE | 2018-03-03 09:43 | PDOC.PN ---
- Subjective Encounter Start Date: 03/02/18 Encounter Start Time: 09:42 abx complete, no F/C, no N/V/d/C. ST saw pt as nursing was concerned about pt pocketing food, has been on a regular diet. ST reported pt would desaturate when eating, but on my exam, pt had no correlation between HR on pulse ox and pulse All systems reviewed and neg - Objective Resuscitation Status: Resuscitation Status DNR:Do Not Resuscitate MAR Reviewed: Yes Vital Signs & Weight: Vital Signs (12 hours) Temp Pulse Resp BP BP Pulse Ox 03/03/18 08:27 98.0 F 92 16 130/67 98 03/03/18 08:19 92 130/67 Weight Admit Weight 131 lb 3.2 oz Weight 131 lb 3.2 oz I&O: 03/02/18 03/03/18 03/04/18 06:59 06:59 06:59 Intake Total 900 360 Output Total 1500 2325 Balance -600 -1965 Result Diagrams: 02/27/18 04:05 03/03/18 04:01 Phys Exam - Physical Examination Constitutional: NAD HEENT: PERRLA, moist MMs, sclera anicteric, oral pharynx no lesions Neck: no nodes, no JVD, supple, full ROM Respiratory: no wheezing, no rhonchi, clear to auscultation bilateral bibasilar rales Cardiovascular: RRR, no significant murmur Gastrointestinal: soft, non-tender, no distention, positive bowel sounds Musculoskeletal: edema present Neurological: non-focal, normal sensation, moves all 4 limbs Lymphatic: no nodes Psychiatric: normal affect, A&O x 3 Skin: no rash, normal turgor, cap refill <2 seconds Dx/Plan (1) Metabolic encephalopathy Code(s): G93.41 - METABOLIC ENCEPHALOPATHY Status: Acute (2) UTI (urinary tract infection) Status: Resolved Qualifiers: Urinary tract infection type: catheter-associated UTI Comment: obstructive uropathy, s/p b/l nephrostomy tubes in addition to spc+ Cx with GNR, ,5K CFU so no workup. appreciate ID input,abx complete, pending placement (3) Chronic kidney disease, stage 3 (moderate) Code(s): N18.3 - CHRONIC KIDNEY DISEASE, STAGE 3 (MODERATE) Status: Chronic (4) Prostate cancer metastatic to multiple sites Code(s): C61 - MALIGNANT NEOPLASM OF PROSTATE Status: Chronic (5) COPD (chronic obstructive pulmonary disease) Status: Chronic Qualifiers: COPD type: chronic bronchitis (6) Chronic diastolic (congestive) heart failure Code(s): I50.32 - CHRONIC DIASTOLIC (CONGESTIVE) HEART FAILURE Status: Chronic (7) Dementia Code(s): F03.90 - UNSPECIFIED DEMENTIA WITHOUT BEHAVIORAL DISTURBANCE Status: Chronic Qualifiers: Dementia type: unspecified type Dementia behavioral disturbance: without behavioral disturbance Qualified Code(s): F03.90 - Unspecified dementia without behavioral disturbance (8) H/O: CVA (cerebrovascular accident) Code(s): Z86.73 - PRSNL HX OF TIA (TIA), AND CEREB INFRC W/O RESID DEFICITS Status: Chronic (9) Paroxysmal a-fib Code(s): I48.0 - PAROXYSMAL ATRIAL FIBRILLATION Status: Chronic (10) Protein-calorie malnutrition, moderate Code(s): E44.0 - MODERATE PROTEIN-CALORIE MALNUTRITION Status: Chronic - Plan cont current plan of care, PT/OT, social service manager * .
--- NOTE | 2018-03-03 09:46 | PDOC.PN ---
- Subjective Encounter Start Date: 03/03/18 Encounter Start Time: 09:44 no acute events, no complaints, afebrile VSS. off abx ROS performed and neg x asa cadence, pt pleasantly demented - Objective Resuscitation Status: Resuscitation Status DNR:Do Not Resuscitate MAR Reviewed: Yes Vital Signs & Weight: Vital Signs (12 hours) Temp Pulse Resp BP BP Pulse Ox 03/03/18 08:27 98.0 F 92 16 130/67 98 03/03/18 08:19 92 130/67 Weight Admit Weight 131 lb 3.2 oz Weight 131 lb 3.2 oz I&O: 03/02/18 03/03/18 03/04/18 06:59 06:59 06:59 Intake Total 900 360 Output Total 1500 2325 Balance -600 -1965 Result Diagrams: 02/27/18 04:05 03/03/18 04:01 Phys Exam - Physical Examination Constitutional: NAD HEENT: PERRLA, moist MMs, sclera anicteric, oral pharynx no lesions Neck: no nodes, no JVD, supple, full ROM Respiratory: no rhonchi, clear to auscultation bilateral rales improved Cardiovascular: RRR, no significant murmur, no rub Gastrointestinal: soft, non-tender, no distention, positive bowel sounds Musculoskeletal: edema present Neurological: non-focal, normal sensation, moves all 4 limbs Lymphatic: no nodes Psychiatric: normal affect, A&O x 3 Skin: no rash, normal turgor, cap refill <2 seconds Dx/Plan (1) Metabolic encephalopathy Code(s): G93.41 - METABOLIC ENCEPHALOPATHY Status: Acute (2) UTI (urinary tract infection) Status: Resolved Qualifiers: Urinary tract infection type: catheter-associated UTI Comment: obstructive uropathy, s/p b/l nephrostomy tubes in addition to spc+ Cx with GNR, ,5K CFU so no workup. appreciate ID input,abx complete, pending placement (3) Chronic kidney disease, stage 3 (moderate) Code(s): N18.3 - CHRONIC KIDNEY DISEASE, STAGE 3 (MODERATE) Status: Chronic (4) Prostate cancer metastatic to multiple sites Code(s): C61 - MALIGNANT NEOPLASM OF PROSTATE Status: Chronic (5) COPD (chronic obstructive pulmonary disease) Status: Chronic Qualifiers: COPD type: chronic bronchitis (6) Chronic diastolic (congestive) heart failure Code(s): I50.32 - CHRONIC DIASTOLIC (CONGESTIVE) HEART FAILURE Status: Chronic (7) Dementia Code(s): F03.90 - UNSPECIFIED DEMENTIA WITHOUT BEHAVIORAL DISTURBANCE Status: Chronic Qualifiers: Dementia type: unspecified type Dementia behavioral disturbance: without behavioral disturbance Qualified Code(s): F03.90 - Unspecified dementia without behavioral disturbance (8) H/O: CVA (cerebrovascular accident) Code(s): Z86.73 - PRSNL HX OF TIA (TIA), AND CEREB INFRC W/O RESID DEFICITS Status: Chronic (9) Paroxysmal a-fib Code(s): I48.0 - PAROXYSMAL ATRIAL FIBRILLATION Status: Chronic (10) Protein-calorie malnutrition, moderate Code(s): E44.0 - MODERATE PROTEIN-CALORIE MALNUTRITION Status: Chronic - Plan cont current plan of care, PT/OT, director social welfare * . hopefully place tomorrow
[2018-03-03 10:25] LABS: #Lymphocytes 1.3 thou/uL (1.20-3.40); #Monocytes 0.5 thou/uL (0.11-0.59); #Neutrophils 4.2 thou/uL (1.40-6.50); %Basophils 0.7 % (0.0-1.0); %Eosinophils 0.6 % (0.0-10.0); %Lymphocytes 20.8 % (21.0-51.0); %Monocytes 8.9 % (0.0-10.0); Hemoglobin 10.2 g/dL (14.0-18.0); Mean Corpuscular HGB CONC 31.5 g/dL (32.0-36.0); Mean Corpuscular Hemoglobin 29.8 pg (27.0-31.0); Mean Corpuscular Volume 94.4 fL (78.0-98.0); Platelet Count 325 thou/uL (130-400); RBC Distribution Width 14.6 % (11.5-14.5); Red Blood Cell (RBC) Count 3.43 mill/uL (4.70-6.10); White Blood Cell (WBC) Count 6.1 thou/uL (4.8-10.8)
[2018-03-03] MEDS: Famotidine 20 MG TAB PO SCH (22:14)
[2018-03-03] MEDS: Mirtazapine 15 MG TAB PO SCH (22:15)
[2018-03-04] MEDS: Lisinopril 5 MG TAB PO SCH (08:15)
[2018-03-04] MEDS: Tamsulosin HCl 0.4 MG CAP PO SCH (08:15)
[2018-03-04] MEDS: Folic Acid 1 MG TAB PO SCH (08:15)
[2018-03-04] MEDS: Bicalutamide 50 MG TAB PO SCH (08:16)
[2018-03-04] MEDS: Ferrous Sulfate 325 MG TAB PO SCH ×2 (08:16→17:01)
[2018-03-04] MEDS: Metoprolol Tartrate 25 MG TAB PO SCH (08:16)
--- NOTE | 2018-03-04 14:39 | PDOC.PN ---
- Subjective Encounter Start Date: 03/04/18 Encounter Start Time: 14:37 -: non-verbal - Objective Resuscitation Status: Resuscitation Status DNR:Do Not Resuscitate Vital Signs & Weight: Vital Signs (12 hours) Temp Pulse Resp BP BP Pulse Ox 03/04/18 08:31 97.5 F L 63 16 146/79 H 100 03/04/18 08:15 63 101/58 L Weight Admit Weight 131 lb 3.2 oz Weight 131 lb 3.2 oz I&O: 03/03/18 03/04/18 03/05/18 06:59 06:59 06:59 Intake Total 360 372 Output Total 2325 2500 Balance -1964 Result Diagrams: 03/03/18 04:01 03/03/18 04:01 Additional Labs: Accuchecks 03/04/18 03/03/18 05:29 21:21 POC Glucose 89 86 Phys Exam - Physical Examination Constitutional: NAD Respiratory: no wheezing, no rales, no rhonchi Cardiovascular: RRR, no significant murmur, no rub Gastrointestinal: soft, no distention, positive bowel sounds Deviation from normal: Somnlent Dx/Plan (1) Metabolic encephalopathy Code(s): G93.41 - METABOLIC ENCEPHALOPATHY Status: Acute (2) Chronic kidney disease, stage 3 (moderate) Code(s): N18.3 - CHRONIC KIDNEY DISEASE, STAGE 3 (MODERATE) Status: Chronic (3) Prostate cancer metastatic to multiple sites Code(s): C61 - MALIGNANT NEOPLASM OF PROSTATE Status: Chronic (4) UTI (urinary tract infection) Status: Resolved Qualifiers: Urinary tract infection type: catheter-associated UTI Comment: obstructive uropathy, s/p b/l nephrostomy tubes in addition to spc+ Cx with GNR, ,5K CFU so no workup. appreciate ID input,abx complete, pending placement (5) COPD (chronic obstructive pulmonary disease) Status: Chronic Qualifiers: COPD type: chronic bronchitis (6) Chronic diastolic (congestive) heart failure Code(s): I50.32 - CHRONIC DIASTOLIC (CONGESTIVE) HEART FAILURE Status: Chronic (7) Dementia Code(s): F03.90 - UNSPECIFIED DEMENTIA WITHOUT BEHAVIORAL DISTURBANCE Status: Chronic Qualifiers: Dementia type: unspecified type Dementia behavioral disturbance: without behavioral disturbance Qualified Code(s): F03.90 - Unspecified dementia without behavioral disturbance (8) H/O prostate cancer Code(s): Z85.46 - PERSONAL HISTORY OF MALIGNANT NEOPLASM OF PROSTATE Status: Chronic (9) H/O: CVA (cerebrovascular accident) Code(s): Z86.73 - PRSNL HX OF TIA (TIA), AND CEREB INFRC W/O RESID DEFICITS Status: Chronic - Plan * No longer needs abx. Was only able go a few steps with PT. May need to go to SNF or rehab for that. Otherwise stable medical regimen.
[2018-03-04] MEDS: Famotidine 20 MG TAB PO SCH (20:21)
[2018-03-04] MEDS: Mirtazapine 15 MG TAB PO SCH (20:22)
[2018-03-05] MEDS: Folic Acid 1 MG TAB PO SCH (09:24)
[2018-03-05] MEDS: Bicalutamide 50 MG TAB PO SCH (09:24)
[2018-03-05] MEDS: Lisinopril 5 MG TAB PO SCH (09:24)
[2018-03-05] MEDS: Ferrous Sulfate 325 MG TAB PO SCH ×2 (09:24→17:32)
[2018-03-05] MEDS: Tamsulosin HCl 0.4 MG CAP PO SCH (09:24)
[2018-03-05] MEDS: Metoprolol Tartrate 25 MG TAB PO SCH (09:24)
--- NOTE | 2018-03-05 16:39 | PDOC.PN ---
- Subjective Encounter Start Date: 03/05/18 Encounter Start Time: 16:37 No complaints other than boredom. - Objective Resuscitation Status: Resuscitation Status DNR:Do Not Resuscitate Vital Signs & Weight: Vital Signs (12 hours) Temp Pulse Resp BP BP Pulse Ox 03/05/18 09:29 100 03/05/18 09:24 62 151/65 H 03/05/18 09:17 98.3 F 62 20 151/65 H 100 Weight Admit Weight 131 lb 3.2 oz Weight 131 lb 3.2 oz I&O: 03/04/18 03/05/18 03/06/18 06:59 06:59 06:59 Intake Total 372 250 Output Total 2500 890 Balance -4758 640 Result Diagrams: 03/03/18 04:01 03/03/18 04:01 Phys Exam - Physical Examination Constitutional: NAD Much more awake and alert. Respiratory: no wheezing, no rales, no rhonchi, clear to auscultation bilateral Cardiovascular: RRR, no significant murmur Gastrointestinal: soft, non-tender, no distention, positive bowel sounds Musculoskeletal: no edema Dx/Plan (1) Metabolic encephalopathy Code(s): G93.41 - METABOLIC ENCEPHALOPATHY Status: Acute Comment: Looks much improved today. (2) Chronic kidney disease, stage 3 (moderate) Code(s): N18.3 - CHRONIC KIDNEY DISEASE, STAGE 3 (MODERATE) Status: Chronic Comment: Stable. (3) Prostate cancer metastatic to multiple sites Code(s): C61 - MALIGNANT NEOPLASM OF PROSTATE Status: Chronic (4) UTI (urinary tract infection) Status: Resolved Qualifiers: Urinary tract infection type: catheter-associated UTI Comment: obstructive uropathy, s/p B nephrostomy tubes in addition to suprapubic catheter Cx with GNR, ,Only 5K CFU so no workup. Abx complete, pending placement (5) COPD (chronic obstructive pulmonary disease) Status: Chronic Qualifiers: COPD type: chronic bronchitis (6) Chronic diastolic (congestive) heart failure Code(s): I50.32 - CHRONIC DIASTOLIC (CONGESTIVE) HEART FAILURE Status: Chronic (7) Dementia Code(s): F03.90 - UNSPECIFIED DEMENTIA WITHOUT BEHAVIORAL DISTURBANCE Status: Chronic Qualifiers: Dementia type: unspecified type Dementia behavioral disturbance: without behavioral disturbance Qualified Code(s): F03.90 - Unspecified dementia without behavioral disturbance (8) H/O prostate cancer Code(s): Z85.46 - PERSONAL HISTORY OF MALIGNANT NEOPLASM OF PROSTATE Status: Chronic (9) H/O: CVA (cerebrovascular accident) Code(s): Z86.73 - PRSNL HX OF TIA (TIA), AND CEREB INFRC W/O RESID DEFICITS Status: Chronic - Plan * Medically stable. Ok to discharge to rehab/SNF when approved. Still has PICC , but can be DC'd at the time of discharge. Not currently being utilized.
[2018-03-05] MEDS: Famotidine 20 MG TAB PO SCH (21:14)
[2018-03-05] MEDS: Mirtazapine 15 MG TAB PO SCH (21:14)
--- NOTE | 2018-03-06 09:31 | PDOC.PN ---
- Subjective Encounter Start Date: 03/06/18 Encounter Start Time: 09:29 No complaints. - Objective Resuscitation Status: Resuscitation Status DNR:Do Not Resuscitate Vital Signs & Weight: Vital Signs (12 hours) Temp Pulse Resp BP Pulse Ox 03/06/18 04:35 98.5 F 67 17 132/72 97 03/06/18 00:14 99.5 F 79 18 119/73 95 Weight Admit Weight 131 lb 3.2 oz Weight 131 lb 3.2 oz I&O: 03/05/18 03/06/18 03/07/18 06:59 06:59 06:59 Intake Total 250 550 Output Total 890 610 Balance -640 -60 Result Diagrams: 03/03/18 04:01 03/03/18 04:01 Phys Exam - Physical Examination Constitutional: NAD Respiratory: no wheezing, no rales, no rhonchi, clear to auscultation bilateral Cardiovascular: RRR, no significant murmur Gastrointestinal: soft, non-tender, no distention, positive bowel sounds Musculoskeletal: no edema Dx/Plan (1) Metabolic encephalopathy Code(s): G93.41 - METABOLIC ENCEPHALOPATHY Status: Acute Comment: Continues to look good today. Still very awake and alert. (2) Chronic kidney disease, stage 3 (moderate) Code(s): N18.3 - CHRONIC KIDNEY DISEASE, STAGE 3 (MODERATE) Status: Chronic Comment: Stable. (3) Prostate cancer metastatic to multiple sites Code(s): C61 - MALIGNANT NEOPLASM OF PROSTATE Status: Chronic (4) UTI (urinary tract infection) Status: Resolved Qualifiers: Urinary tract infection type: catheter-associated UTI Comment: obstructive uropathy, s/p B nephrostomy tubes in addition to suprapubic catheter Cx with GNR, ,Only 5K CFU so no workup. Abx complete, pending placement (5) COPD (chronic obstructive pulmonary disease) Status: Chronic Qualifiers: COPD type: chronic bronchitis Comment: Stable and well compensated. (6) Chronic diastolic (congestive) heart failure Code(s): I50.32 - CHRONIC DIASTOLIC (CONGESTIVE) HEART FAILURE Status: Chronic Comment: Stable and well compensated. (7) Dementia Code(s): F03.90 - UNSPECIFIED DEMENTIA WITHOUT BEHAVIORAL DISTURBANCE Status: Chronic Qualifiers: Dementia type: unspecified type Dementia behavioral disturbance: without behavioral disturbance Qualified Code(s): F03.90 - Unspecified dementia without behavioral disturbance (8) H/O prostate cancer Code(s): Z85.46 - PERSONAL HISTORY OF MALIGNANT NEOPLASM OF PROSTATE Status: Chronic (9) H/O: CVA (cerebrovascular accident) Code(s): Z86.73 - PRSNL HX OF TIA (TIA), AND CEREB INFRC W/O RESID DEFICITS Status: Chronic - Plan * Medically stable. Awaiting placement.
[2018-03-06] MEDS: Ferrous Sulfate 325 MG TAB PO SCH ×2 (09:41→17:40)
[2018-03-06] MEDS: Bicalutamide 50 MG TAB PO SCH (09:41)
[2018-03-06] MEDS: Lisinopril 5 MG TAB PO SCH (09:42)
[2018-03-06] MEDS: Metoprolol Tartrate 25 MG TAB PO SCH (09:42)
[2018-03-06] MEDS: Folic Acid 1 MG TAB PO SCH (09:42)
[2018-03-06] MEDS: Tamsulosin HCl 0.4 MG CAP PO SCH (09:42)
--- NOTE | 2018-03-06 12:07 | PDOC.PN ---
- Subjective Encounter Start Date: 03/06/18 Encounter Start Time: 09:45 Doing well. Confused, but denies complaints. - Objective Resuscitation Status: Resuscitation Status DNR:Do Not Resuscitate Vital Signs & Weight: Vital Signs (12 hours) Temp Pulse Resp BP BP Pulse Ox 03/06/18 09:42 67 144/70 H 03/06/18 08:02 99 03/06/18 04:35 98.5 F 67 17 132/72 97 03/06/18 00:14 99.5 F 79 18 119/73 95 Weight Admit Weight 131 lb 3.2 oz Weight 131 lb 3.2 oz I&O: 03/05/18 03/06/18 03/07/18 06:59 06:59 06:59 Intake Total 250 550 Output Total 890 610 Balance -640 -60 Result Diagrams: 03/03/18 04:01 03/03/18 04:01 Phys Exam - Physical Examination Constitutional: NAD Confused, but pleasant. Respiratory: no wheezing, no rales, no rhonchi, clear to auscultation bilateral Cardiovascular: RRR, no significant murmur Gastrointestinal: soft, non-tender, no distention, positive bowel sounds Musculoskeletal: no edema Dx/Plan (1) Metabolic encephalopathy Code(s): G93.41 - METABOLIC ENCEPHALOPATHY Status: Acute Comment: Continues to look good today. Still very awake and alert. (2) Chronic kidney disease, stage 3 (moderate) Code(s): N18.3 - CHRONIC KIDNEY DISEASE, STAGE 3 (MODERATE) Status: Chronic Comment: Stable. (3) Prostate cancer metastatic to multiple sites Code(s): C61 - MALIGNANT NEOPLASM OF PROSTATE Status: Chronic Comment: On Casodex (4) UTI (urinary tract infection) Status: Resolved Qualifiers: Urinary tract infection type: catheter-associated UTI Comment: obstructive uropathy, s/p B nephrostomy tubes in addition to suprapubic catheter Cx with GNR, ,Only 5K CFU so no workup. Abx complete. (5) COPD (chronic obstructive pulmonary disease) Status: Chronic Qualifiers: COPD type: chronic bronchitis Comment: Stable and well compensated. (6) Chronic diastolic (congestive) heart failure Code(s): I50.32 - CHRONIC DIASTOLIC (CONGESTIVE) HEART FAILURE Status: Chronic Comment: Stable and well compensated. (7) Dementia Code(s): F03.90 - UNSPECIFIED DEMENTIA WITHOUT BEHAVIORAL DISTURBANCE Status: Chronic Qualifiers: Dementia type: unspecified type Dementia behavioral disturbance: without behavioral disturbance Qualified Code(s): F03.90 - Unspecified dementia without behavioral disturbance (8) H/O prostate cancer Code(s): Z85.46 - PERSONAL HISTORY OF MALIGNANT NEOPLASM OF PROSTATE Status: Chronic (9) H/O: CVA (cerebrovascular accident) Code(s): Z86.73 - PRSNL HX OF TIA (TIA), AND CEREB INFRC W/O RESID DEFICITS Status: Chronic - Plan * Working on placement.
[2018-03-06] MEDS: Mirtazapine 15 MG TAB PO SCH (19:54)
[2018-03-06] MEDS: Famotidine 20 MG TAB PO SCH (19:54)
[2018-03-07] MEDS: Ferrous Sulfate 325 MG TAB PO SCH ×2 (08:42→17:37)
[2018-03-07] MEDS: Lisinopril 5 MG TAB PO SCH (08:42)
[2018-03-07] MEDS: Bicalutamide 50 MG TAB PO SCH (08:42)
[2018-03-07] MEDS: Tamsulosin HCl 0.4 MG CAP PO SCH (08:42)
[2018-03-07] MEDS: Metoprolol Tartrate 25 MG TAB PO SCH (08:42)
[2018-03-07] MEDS: Folic Acid 1 MG TAB PO SCH (08:42)
[2018-03-07 17:37] VITALS: TEMP 98
[2018-03-07 18:13] VITALS: BP 133/68
--- NOTE | 2018-03-08 15:37 | DIS ---
DATE OF ADMISSION: 02/15/2018 DATE OF DISCHARGE: 03/07/2018 DISCHARGE DIAGNOSES: 1. Metabolic encephalopathy. 2. Urinary tract infection. 3. Chronic kidney disease stage 4. 4. Metastatic prostate cancer. 5. Bilateral ureteral obstruction, status post percutaneous tube. 6. History of chronic diastolic heart failure. 7. Dementia. 8. History of cerebrovascular accident. DISCHARGE PROCEDURE: Bilateral percutaneous nephrostomy tubes. HISTORY: The patient is an 87-year-old male with a history of prior strokes and dementia who present ed initially with some generalized weakness symptoms. Patient's initial workup indicated some eviden ce of urinary tract infection. Because the patient had the metastatic prostate cancer and had a velvet cutter mukund suprapubic catheter and had prior urinary tract infections with evidence of invasive infection, Leida Preciado was consulted. The patient underwent a CT scan of the abdomen and pelvis which revealed lily ateral hydronephrosis, although the suprapubic catheter was intact and the bladder was decompressed. CT of the brain showed no other pathology to account for any metabolic encephalopathy. Chest x-ray was negative. Subsequently, Dr. Yeung was consulted and he recommended bilateral percutaneous neph rostomy tubes. These were subsequently placed by Interventional Radiology. Dr. Preciado recommended PI CC line placement with 2 weeks of meropenem, although the urine cultures only grew less than 5000 col onies of a gram negative chapin. The patient subsequently was felt to have a solid treatment plan in [facility] and attempts were made at placement. Dr. Yeung also recommended Casodex for the patient until he could be stable enough for discharge for outpatient Lupron injections at his office. The patient did at some point lose his PICC access and it was replaced and ultimately he was able to complete his full course of IV antibiotics while he was in the hospital. At the end of his hospitalization, the patient was more awake and alert and was felt to be in stable condition. PHYSICAL EXAMINATION: VITAL SIGNS: On the day of discharge, temperature was 98.2, pulse 62, respirations 18, O2 sat 95% on room air, BP 135/71. GENERAL: The patient is awake, alert, still profoundly confused secondary to his dementia. HEART: Regular rate and rhythm. LUNGS: Clear bilaterally. ABDOMEN: Soft, nontender. Suprapubic catheter and percutaneous nephrostomy tubes in place. EXTREMITIES: Warm and dry. DISCHARGE MEDICATIONS: The patient is to be on a regular diet with nutritional supplements t.i.d. H is activity is as tolerated. He will be on ferrous sulfate 325 one p.o. b.i.d., Folvite 1 p.o. daily , Casodex 50 mg every day, Remeron 15 mg at bedtime, Flomax 0.4 mg daily, lisinopril 5 mg every day, metoprolol 25 mg p.o. daily. He will have a follow up with Dr. Yeung, Dr. Llamas, and Dr. Preciado. The patient should return to the emergency department should he have any problems prior to his followup. Also, of note, patient alicia ad remained in isolation during his hospitalization for concern for bedbug infestation although there was no clinical evidence of such during the admission.
== END 2018-03-07 18:54 | DRG 689 ==
LOC: ERS 11:06 → 2SW 14:41 → T4-B 02-16 17:40 → OBSVTOIN 02-19 17:05
PROVIDERS: ADMIT Family Medicine; ATTEND Family Medicine
PROC: 0T9430Z Drainage of Left Kidney Pelvis with Drainage Device, Percutaneous Approach (ICD-10-PCS; principal; 2018-02-21)
PROC: 0T9330Z Drainage of Right Kidney Pelvis with Drainage Device, Percutaneous Approach (ICD-10-PCS; 2018-02-21)
PROC: 05H533Z Insertion of Infusion Device into Right Subclavian Vein, Percutaneous Approach (ICD-10-PCS; 2018-02-25)
PROC: B546ZZA Ultrasonography of Right Subclavian Vein, Guidance (ICD-10-PCS; 2018-02-25)
PROC: 3C1ZX8Z Irrigation of Indwelling Device using Irrigating Substance, External Approach (ICD-10-PCS; 2018-02-26)
PROC: 05H533Z Insertion of Infusion Device into Right Subclavian Vein, Percutaneous Approach (ICD-10-PCS; 2018-03-01)
PROC: B546ZZA Ultrasonography of Right Subclavian Vein, Guidance (ICD-10-PCS; 2018-03-01)
DX: N39.0 Urinary tract infection, site not specified (principal); G92 Toxic encephalopathy; E44.0 Moderate protein-calorie malnutrition; N17.9 Acute kidney failure, unspecified; C78.7 Secondary malignant neoplasm of liver and intrahepatic bile duct; C79.51 Secondary malignant neoplasm of bone; C79.89 Secondary malignant neoplasm of other specified sites; I69.951 Hemiplegia and hemiparesis following unspecified cerebrovascular disease affecting right dominant side; I13.0 Hypertensive heart and chronic kidney disease with heart failure and stage 1 through stage 4 chronic kidney disease, or unspecified chronic kidney disease; I50.32 Chronic diastolic (congestive) heart failure; Z68.1 Body mass index [BMI] 19.9 or less, adult; E86.0 Dehydration; C61 Malignant neoplasm of prostate; G30.0 Alzheimer's disease with early onset; F02.80 Dementia in other diseases classified elsewhere, unspecified severity, without behavioral disturbance, psychotic disturbance, mood disturbance, and anxiety; I48.0 Paroxysmal atrial fibrillation; N18.3 Chronic kidney disease, stage 3 (moderate); J44.9 Chronic obstructive pulmonary disease, unspecified; I49.5 Sick sinus syndrome; Z95.0 Presence of cardiac pacemaker; N13.1 Hydronephrosis with ureteral stricture, not elsewhere classified; Z87.891 Personal history of nicotine dependence; F41.8 Other specified anxiety disorders; N99.528 Other complication of incontinent external stoma of urinary tract; N40.0 Benign prostatic hyperplasia without lower urinary tract symptoms; N31.9 Neuromuscular dysfunction of bladder, unspecified; Z51.5 Encounter for palliative care
CPT/HCPCS: 36415; 36416; 36569; 49020; 50430; 50432; 50433; 70450; 71045; 74176; 77002; 80048; 80053; 81003; 81015; 82553; 83735; 84153; 84484; 85007; 85025; 85027; 85610; 85730; 87040; 87086; 90471; 90670; 93005; 96361; 96365; C1729; C1751; G0009; G8978-GP-CK; G8978-GP-CM; G8979-GP-CI; G8979-GP-CK; G8996-GN-CM; G8997-GN-CJ; J1644; J1940; J2185; J2250; J2543; J2997; J7050

== ENCOUNTER 2018-03-13 12:15 | Emergency (ER) | payer MEDICARE ==
[2018-03-13 14:30] LABS: #Lymphocytes 0.6 thou/uL (1.20-3.40); #Monocytes 0.6 thou/uL (0.11-0.59); #Neutrophils 7.1 thou/uL (1.40-6.50); %Basophils 0.3 % (0.0-1.0); %Eosinophils 0.1 % (0.0-10.0); %Lymphocytes 7.3 % (21.0-51.0); %Monocytes 6.8 % (0.0-10.0); %Neutrophils 85.5 % (42.0-75.0); Hemoglobin 9.9 g/dL (14.0-18.0); Mean Corpuscular HGB CONC 32.5 g/dL (32.0-36.0); Mean Corpuscular Hemoglobin 30.4 pg (27.0-31.0); Mean Corpuscular Volume 93.5 fL (78.0-98.0); Mean Platelet Volume 7.5 fL (7.4-10.4); Platelet Count 391 thou/uL (130-400); RBC Distribution Width 14.4 % (11.5-14.5); Red Blood Cell (RBC) Count 3.26 mill/uL (4.70-6.10); White Blood Cell (WBC) Count 8.3 thou/uL (4.8-10.8)
--- NOTE | 2018-03-13 14:32 | RAD ---
AP CHEST: History: 87-year-old presents with history of seizures. Date: 03-13-18 Comparison: 04-17-17 FINDINGS: AP chest demonstrates a dual-lead intracranial pacing device. Ectasia and calcification of the aorta is seen. Mild pulmonary vascular congestion is seen. No evidence of effusions, pneumothorax, or pneumonia seen . IMPRESSION: Ectatic aorta, otherwise unremarkable AP view chest. POS: [facility]
[2018-03-13 14:51] LABS: Anion Gap 11 mmol/L (10-20); BUN (Urea Nitrogen) 33 mg/dL (8.4-25.7); Calc. Creatinine Clearance 0 mL/min (70-130); Carbon Dioxide 27 mmol/L (23-31); Chloride 106 mmol/L (98-107); Estimated GFR-MDRD 69; Glucose 86 mg/dL (83-110); Potassium 4.3 mmol/L (3.5-5.1); Sodium 140 mmol/L (136-145)
--- NOTE | 2018-03-13 15:03 | CT ---
CT BRAIN WITHOUT CONTRAST: Date: 03/13/18 HISTORY: Seizure. FINDINGS: Comparison made with exam of 02/18/18. Changes of chronic small vessel ischemic disease are again seen. The ventricular size is stable and t he basilar cisterns are patent. No evidence of acute infarct, hemorrhage, midline shift, or abnormal extra-axial fluid collections are seen. The bony calvarium is intact. The visualized paranasal sinuse s and mastoid air cells are well aerated. IMPRESSION: No CT evidence of acute intracranial process. POS: [facility]
[2018-03-13 15:24] LABS: Bilirubin Negative (Negative); Blood, Urine Large (Negative); Clarity CLEAR (Clear); Glucose, Urine (Dipstick) Negative (Negative); Leukocyte Trace (Negative); Nitrite Negative (Negative); Protein, Urine (Dipstick) 30 mg/dL (Neg-Trace); pH, Urine 7.5 (5.0-9.0)
[2018-03-13 15:27] LABS: Bacteria/HPF Rare-Few HPF (None Seen); Hyaline Casts/LPF 4-6 HYALINE CAST LPF (0-3 Hyaline); Pathc Cast-AUWi Flag 0.14 (0-2.49); RBC/HPF GREATER THAN 50-TNTC HPF (0-3); Squamous Epithelial 0-3 HPF (0-3); WBC/HPF 0-3 HPF (0-3)
[2018-03-13] MEDS ORDERED: levETIRAcetam In NaCl (Iso-Os) 1,500 MG in Premix Bag 1 BAG IVPB SCH (15:30)
[2018-03-13] MEDS ORDERED: Ferrous Sulfate 325 MG TAB PO SCH (17:00)
[2018-03-13 17:18] LABS: Troponin I 0.064 ng/mL (< 0.028)
--- NOTE | 2018-03-13 20:20 | HP ---
CHIEF COMPLAINT: Seizure. HISTORY OF PRESENT ILLNESS: The patient is an 87-year-old male whose history I have obtained only fr om the ER physician since there is no family and the patient is unable to provide history for me. Th e patient was at rehab, getting physical therapy when he started having generalized shakes. The jennifer ent at that time was also noted to be hypoxic and he was transferred by EMS to the hospital. The pat casimiro underwent a CT brain, which did not indicate any acute abnormalities. He was just recently disc harged from the hospital on 03/07/2018. At this time, the patient had placement of bilateral nephros tobin tubes. The patient also at that time was treated for UTI and the antibiotics was completed duri ng his hospital stay. The patient currently denies any fevers or any chills, and he is only oriented to self right now. PAST MEDICAL HISTORY: Chronic suprapubic catheter, history of ischemic CVA, right-sided residual [place], history of prostate carcinoma, paroxysmal atrial fibrillation, diastolic heart failure, Alzhei khalida's dementia, COPD, sick sinus syndrome, has a pacemaker, obstructive uropathy. PAST SURGICAL HISTORY: 1. Status post prostatectomy. 2. Pacemaker placement. 3. Suprapubic catheter and had bilateral nephrostomy tube placement. CURRENT MEDICATIONS: This is per his last H&P. Lopressor 25 mg daily, torsemide 10 mg p.o. 3 times a week, folic acid 1 daily, ferrous sulfate 325 b.i.d., Zestril 5 mg daily, Remeron 15 mg at bedtime, Protonix 40 mg daily, Flomax 0.4 mg daily. ALLERGIES: ACETAMINOPHEN, CODEINE, and HYDROCODONE. FAMILY HISTORY: Positive for hypertension, diabetes, and CVA in multiple family members. SOCIAL HISTORY: The patient lives here with family members. He has a history of smoking, former smo ker. No alcohol or drug use. REVIEW OF SYSTEMS: Unable to obtain since the patient is not mentally able to provide so. PHYSICAL EXAMINATION: VITAL SIGNS: Temperature 98, pulse of 82, blood pressure 130/69, sats on room air. GENERAL: He is awake, alert, oriented x self. CARDIOVASCULAR: S1, S2 present. No murmurs, rubs, or gallops. LUNGS: Clear to auscultation. No rhonchi or wheezes noted. ABDOMEN: Soft, nontender. Bowel sounds are present x2. He does have bilateral nephrostomy tubes. Urine appears clear. NEUROLOGIC: He is able to move bilateral upper extremities and bilateral lower extremities, and he f ollows commands. No focal deficits noted. He does have some mild weakness to his right upper and ri ght lower extremity. SKIN: No cuts or lesions noted. He does have a pacemaker on his left chest wall area. HEENT: Normocephalic, atraumatic. The patient does appear to be little bit malnourished. LABORATORY DATA: WBC of 8.2, hemoglobin of 9.9, hematocrit of 30.4, platelets of 391. Sodium of 140 , potassium of 4.3, creatinine of 1.2. Glucose of 86. Lactic acid 1.3. Urine is pending. The jennifer ent did have a CT head, which was negative. He also had a chest x-ray done today, which did not luis emnauel any acute abnormalities, just indicated ectatic aorta. ASSESSMENT AND PLAN: The patient is a very pleasant 87-year-old male, who presented to the hospital with seizure. 1. Acute seizure, unknown etiology. Electrolytes appeared to be stable. CT head, no acute abnormal ities; however, the patient does have a history of prostate cancer, is on Casodex. We will continue to monitor. May recommend getting an MRI. We will also check UA from bilateral nephrostomy tubes to make sure there is no infectious process; however, no white count and lactic acid appears to be stab le. Vitals are also stable. We will start the patient on Keppra 500 b.i.d. and also consult Neurolo gy. 2. History of cerebrovascular accident with right-sided weakness. This appears to be chronic. I wi ll continue to monitor. 3. History of prostate cancer. Continue Casodex and continue to monitor. 4. Code status: The patient is unable to tell me code status. I will consult palliative care for f urther assessment and we will put SCDs for DVT prophylaxis.
[2018-03-13] MEDS ORDERED: Mirtazapine 15 MG TAB PO SCH (21:00)
[2018-03-14] MEDS ORDERED: Folic Acid 1 MG TAB PO SCH (09:00)
[2018-03-14] MEDS ORDERED: Metoprolol Tartrate 25 MG TAB PO SCH (09:00)
[2018-03-14] MEDS ORDERED: Bicalutamide 50 MG TAB PO SCH (09:00)
[2018-03-14] MEDS ORDERED: Tamsulosin HCl 0.4 MG CAP PO SCH (09:00)
[2018-03-14] MEDS ORDERED: Lisinopril 5 MG TAB PO SCH (09:00)
== END 2018-03-13 19:28 | disposition home or self-care (01) ==
LOC: ERS 12:15
DX: R56.9 Unspecified convulsions (principal); I10 Essential (primary) hypertension; I48.91 Unspecified atrial fibrillation; Z86.73 Personal history of transient ischemic attack (TIA), and cerebral infarction without residual deficits; Z85.46 Personal history of malignant neoplasm of prostate; Z87.891 Personal history of nicotine dependence; Z79.899 Other long term (current) drug therapy
CPT/HCPCS: 70450; 71045; 80048; 83605; 84146; 84443; 84484; 85025; 87040; 87077; 87086; 87186; J1953; 36415; 81003; 81015; 96365

== ENCOUNTER 2018-03-17 14:37 | Observation (INO) | payer MEDICAID, MEDICARE ==
[2018-03-17 15:59] LABS: #Lymphocytes 0.9 thou/uL (1.20-3.40); #Monocytes 0.4 thou/uL (0.11-0.59); #Neutrophils 3.7 thou/uL (1.40-6.50); %Basophils 0.6 % (0.0-1.0); %Eosinophils 0.3 % (0.0-10.0); %Lymphocytes 18.3 % (21.0-51.0); %Monocytes 7.7 % (0.0-10.0); %Neutrophils 73.2 % (42.0-75.0); Hemoglobin 8.7 g/dL (14.0-18.0); Mean Corpuscular HGB CONC 31.7 g/dL (32.0-36.0); Mean Corpuscular Hemoglobin 29.9 pg (27.0-31.0); Mean Corpuscular Volume 94.2 fL (78.0-98.0); Mean Platelet Volume 7.1 fL (7.4-10.4); Platelet Count 389 thou/uL (130-400); RBC Distribution Width 14.4 % (11.5-14.5)
--- NOTE | 2018-03-17 16:08 | RAD ---
FRONTAL RADIOGRAPH CHEST: 03/17/2018 HISTORY: Chest pain. Altered mental status. COMPARISON: 03/13/2018 FINDINGS: There is tortuosity of the descending thoracic aorta, stable. A stable dual-lead transvenous pacing device is present. Catheter tubing curls over the right upper and left upper quadrants, incompletely assessed on this ex am. Nodular density noted at the lateral aspect of the mid left lung zone, suggesting a nipple shado w. Followup with nipple markers may be beneficial. There is no pneumothorax, pleural fluid, lobar consolidation, or alveolar edema. Increased linear in terstitial density with pulmonary hyperinflation noted, stable. IMPRESSION: Stable appearance of the chest. No acute findings. POS: [facility]
[2018-03-17 16:19] LABS: ALT (SGPT) 7 U/L (8-55); AST (SGOT) 13 U/L (5-34); Albumin 2.7 g/dL (3.4-4.8); Alkaline Phosphatase 143 U/L (40-150); Anion Gap 11 mmol/L (10-20); BUN (Urea Nitrogen) 44 mg/dL (8.4-25.7); Bilirubin, Total 0.4 mg/dL (0.2-1.2); Calc. Creatinine Clearance 0 mL/min (70-130); Calcium 8.8 mg/dL (7.8-10.44); Carbon Dioxide 27 mmol/L (23-31); Chloride 107 mmol/L (98-107); Estimated GFR-MDRD 65; Globulin 2.6 g/dL (2.4-3.5); Glucose 79 mg/dL (83-110); Potassium 4.2 mmol/L (3.5-5.1); Protein, Total 5.3 g/dL (5.8-8.1); Sodium 141 mmol/L (136-145)
[2018-03-17 16:27] LABS: CKMB 0.8 ng/mL (0-6.6); Troponin I 0.098 ng/mL (< 0.028)
[2018-03-17 16:30] LABS: Bilirubin Negative (Negative); Blood, Urine Moderate (Negative); Clarity CLOUDY (Clear); Glucose, Urine (Dipstick) Negative (Negative); Leukocyte Large (Negative); Nitrite Negative (Negative); Protein, Urine (Dipstick) 100 mg/dL (Neg-Trace); Specific Gravity, Urine 1.011 (1.002-1.036)
[2018-03-17 16:33] LABS: Bacteria/HPF None Seen HPF (None Seen); Hyaline Casts/LPF 4-6 HYALINE CAST LPF (0-3 Hyaline); Pathc Cast-AUWi Flag 0.72 (0-2.49); RBC/HPF 0-3 HPF (0-3); Squamous Epithelial None Seen HPF (0-3); WBC/HPF 21-50 HPF (0-3)
[2018-03-17] MEDS ORDERED: Piperacillin/Tazobactam 4.5 GM VIAL ONE (16:53)
[2018-03-17 22:18] VITALS: BMI 19.9
[2018-03-18] MEDS ORDERED: Acetaminophen 325 MG TAB PO PRN (00:04)
[2018-03-18] MEDS ORDERED: Ondansetron ODT 4 MG TAB PO PRN (00:04)
--- NOTE | 2018-03-18 07:29 | HP ---
CHIEF COMPLAINT: Generalized fatigue, weakness, and subjective fevers. HISTORY OF PRESENT ILLNESS: This is an 87-year-old male who is presenting to the ED with generalized weakness. Per ED records, nursing staff, the patient has not been feeling well and had generalized weakness hurting all over and having subjective fevers. Patient is currently at home and is on home hospice for prostate cancer, which has metastasized to the liver. Patient's hospice nurse was not ma de aware. The patient was not feeling too well and the patient was brought to the ED mistakenly. At this point, I spoke to the nurse. We are going to make patient DNR. We are going to get the patien t to go back to home for home hospice and patient can be treated from home by the patient's hospice naveed pickens. REVIEW OF SYSTEMS: Generalized weakness. Denies fever at this time, abdominal pain, some diarrhea. Denies constipation. All other review of systems was conducted and they are negative. PAST MEDICAL HISTORY: Ischemic cerebrovascular accident, right-sided mild deficit, hypertension, pro state cancer, atrial fibrillation. FAMILY HISTORY: Reviewed and noncontributory to this visit. PAST SURGICAL HISTORY: The patient is status post pacemaker placement. PSYCHIATRIC HISTORY: No psych history. SOCIAL HISTORY: The patient is a former tobacco user, smokes cigarettes, quit more than 10 years ago . Patient smoked for about 25 years. The patient denies any illicit drug use or any alcohol use. ALLERGIES: The patient is allergic to HYDROCODONE, ACETAMINOPHEN. CURRENT MEDICATIONS: The patient is on Casodex 50 mg daily, ferrous sulfate 325 mg, folic acid 1 mg, lisinopril 5 mg daily, metoprolol 25 mg, mirtazapine 15 mg, tamsulosin 0.4 mg, torsemide 10 mg. PHYSICAL EXAMINATION: VITAL SIGNS: Blood pressure 140/103, pulse is 62, respiratory rate of 16, temperature of 97.6, O2 sa t of 96. GENERAL: The patient is frail, ill-appearing, lying in bed. HEENT: Normocephalic, atraumatic. Pupils are equally round and reactive to light. Extraocular move ments are intact. No scleral icterus. No conjunctival pallor. NECK: Supple. Trachea is midline. RESPIRATORY: Clear to auscultation bilaterally. No wheezing, no rales, no rhonchi is appreciated. CARDIOVASCULAR: S1, S2, regular rate and rhythm. No murmurs, no gallops or rubs appreciated. ABDOMEN: Soft, nontender, nondistended. Positive bowel sounds in all quadrants. GENITOURINARY: The patient has two nephrostomy tubes in place, no erythema, no signs of infection. EXTREMITIES: Upper extremities, 5/5. The patient is able to move all upper extremities, good pulses . Lower extremities, patient is able to move lower extremities, has some edema. NEUROLOGIC: Cranial nerves II-XII grossly intact. EKG: Patient has a 12-lead EKG, which shows heart rate of 61. ED COURSE: The patient was given Zosyn IV. LABORATORY DATA: WBC was 5.0, hemoglobin is 8.7, hematocrit is 27.3, platelet count is 289. Sodium 141, potassium 4.2, chloride 107, carbon dioxide of 27, BUN of 44, creatinine is 1.27. Lactic acid 0 .7, AST is 13, ALT 7. Leukocyte esterase is large. ASSESSMENT AND PLAN: This is an 87-year-old male with prostate cancer metastasized to the liver when has this being admitted for generalized weakness. At this point, per records and per speaking to ny dical staff and nursing staff, patient was brought in because there was a miscommunication and hospic e nurse was not made aware that the patient was having generalized weakness. Patient is on home hosp ice. We will treat the patient conservatively. We will put patient back on DNR status. We have get ting palliative care. Case management on the case. At this point, we recommend the patient being tr ansferred back to home hospice to be managed conservatively. 1. Asymptomatic urinary tract infection, most likely a colonizer. Patient do have a nephrostomy tub e in place and this urine analysis does not need to be treated. At this point, we will just monitor the patient. 2. Deep venous thrombosis and gastrointestinal prophylaxis. We will start the patient on his curren t hospice regimen. 3. Disposition, we will recommend the patient to be transferred to home hospice.
[2018-03-18] MEDS ORDERED: Famotidine 20 MG TAB PO SCH ×2 (09:00)
[2018-03-18] MEDS ORDERED: Enoxaparin Sodium 40 MG/0.4 ML SYRINGE SC SCH (09:00)
[2018-03-18] MEDS ORDERED: Torsemide 10 MG TAB PO SCH (09:00)
[2018-03-18] MEDS ORDERED: Bicalutamide 50 MG TAB PO SCH (09:00)
[2018-03-18] MEDS ORDERED: Folic Acid 1 MG TAB PO SCH (09:00)
[2018-03-18] MEDS ORDERED: Metoprolol Tartrate 25 MG TAB PO SCH (09:00)
[2018-03-18] MEDS ORDERED: Lisinopril 5 MG TAB PO SCH (09:00)
[2018-03-18] MEDS ORDERED: Tamsulosin HCl 0.4 MG CAP PO SCH (09:00)
[2018-03-18] MEDS: Ferrous Sulfate 325 MG TAB PO SCH ×2 (09:28→16:02)
--- NOTE | 2018-03-18 15:37 | DIS ---
DATE OF ADMISSION: 03/17/2018 DATE OF DISCHARGE: 03/18/2018 TRANSFER OF CARE PRIMARY CARE PROVIDER: Marilee Llamas M.D. DISCHARGE DISPOSITION: The patient is discharged home. DISCHARGE DIAGNOSES: Prostate cancer, metastases to the liver, hypertension, atrial fibrillation, ch ronic obstructive pulmonary disease, diastolic heart failure, chronic kidney disease stage 3. DISCHARGE MEDICATIONS: Same as the home medicines. Torsemide 10 mg Sunday, Sunday and Sunday p.o .; Flomax 0.4 mg a day; Remeron 15 mg a day; Lopressor 25 mg a day; lisinopril 5 mg a day; folic acid 1 mg a day; ferrous sulfate 325 mg twice a day and Casodex 50 mg a day. ALLERGIES: TYLENOL, CODEINE, HYDROCODONE. CODE STATUS: DNR. PENDING AT THE TIME OF DISCHARGE: The patient has a multi-organism culture growing. It is from the nephrostomy tube. HOSPITAL COURSE: [facility], generalized weakness and on home hospice. Unfortunately, [facility] was not notified that they were going to send him to the hospital and has recommended he be sen t home. The patient has been evaluated in the hospital. His laboratory revealed no evidence of elev ated white count, it is 5.0, hemoglobin 8.7, platelet count 389,000. His BUN is 44, creatinine 1.27. Lytes are normal. Liver function tests are unremarkable. The patient has had no fever during his hospital stay. He has had no abnormal vital signs. He is being discharged home. There were no cons ultations obtained. No procedures were done. His prognosis is of course long-term poor. He is moshe g returned to hospice care at home.
[2018-03-18] MEDS ORDERED: Mirtazapine 15 MG TAB PO SCH (21:00)
[2018-03-18 21:08] VITALS: BP 125/82; TEMP 97.4
== END 2018-03-18 21:17 | disposition home or self-care (01) ==
LOC: ERS 14:37 → T4-B 19:20
PROVIDERS: ADMIT Internal Medicine Infectious Disease; ATTEND Internal Medicine Infectious Disease
DX: C61 Malignant neoplasm of prostate (principal); C78.7 Secondary malignant neoplasm of liver and intrahepatic bile duct; N39.0 Urinary tract infection, site not specified; I13.0 Hypertensive heart and chronic kidney disease with heart failure and stage 1 through stage 4 chronic kidney disease, or unspecified chronic kidney disease; I50.30 Unspecified diastolic (congestive) heart failure; N18.3 Chronic kidney disease, stage 3 (moderate); I48.91 Unspecified atrial fibrillation; J44.9 Chronic obstructive pulmonary disease, unspecified; Z88.5 Allergy status to narcotic agent; Z88.8 Allergy status to other drugs, medicaments and biological substances; Z79.899 Other long term (current) drug therapy
CPT/HCPCS: 71045; 80053; 82553; 83605; 84484; 85025; 87040; 87077; 87086; 87186; 90662; 93005; 96365; 96366; 96372; 99285; G0008; G0378 ×2; 36415; 81003; 81015; 90471; J1650; J2543